=== PATIENT | male | born 1940 | race Caucasian/White ===

== ENCOUNTER → 2017-12-21 13:05 | Outpatient (CLI) | payer MEDICARE, SELFPAY ==
--- NOTE | 2017-12-21 13:10 | ECHOD_ITS ---
Reason For Study: CAD Procedure This was a 2D Doppler, Color Flow transthoracic echocardiogram. Exam performed in department. Left Ventricle Moderately dilated left ventricle. Calcified Thrombus in LV apex measuring 1.8 cm by 2.3cm. Severe segmental systolic dysfunction (see wall motion). The estimated ejection fraction is 20 %. Transmitral diastolic flow velocities suggest mild (stage 1) diastolic dysfunction (reversed pattern). Reading : Dyskinetic. Mid-Anterior : Akinetic. Mid-anteroseptal : Akinetic. Right Ventricle Normal RV size. Normal systolic function. Atria Normal left atrium. Normal right atrium. Mitral Valve Normal mitral valve. Mild (1+) eccentric mitral valve insufficiency. Tricuspid Valve Normal tricuspid valve. Mild tricuspid valve insufficiency. Aortic Valve Trisinus/trileaflet aortic valve. Mild focal aortic valve calcification. Pulmonic Valve Normal pulmonic valve. Great Vessels Normal aortic root. The pulmonary artery is normal size. Normal inferior vena cava. Pericardium/Pleural No pericardial effusion. Medication 22 gauge I.V. with prn adaptor inserted into right arm. Diluted definity 3ml given slow IV push to enhance endocardial definition. MMode/2D Measurements & Calculations LVIDd: 6.0 cm IVSd: 0.61 cm Ao root diam: 3.2 cm LVIDs: 4.9 cm LVPWd: 0.85 cm LA dimension: 4.1 cm RVDd: 2.8 cm FS: 19.2 % LAV(MOD-bp): 43.2 ml LA A4 area: 15.5 cm2 RA A4 area: 14.3 cm2 LAV(MOD-bp) Indexed: 24.8 ml/m2 LAV(MOD-sp2): 42.9 ml LAV(MOD-sp4): 42.5 ml Doppler Measurements & Calculations MV E max rj: 50.1 cm/sec Lat Peak E' Rj: 4.8 cm/sec Med Peak E' Rj: 3.5 cm/sec MV A max rj: 84.2 cm/sec E/E' lat: 10.5 E/E' med: 14.4 MV E/A: 0.60 Ao V2 max: 124.5 cm/sec LV V1 max: 99.1 cm/sec PA V2 max: 65.9 cm/sec Ao max P.2 mmHg LV V1 max P.9 mmHg Interpretation Summary Moderately dilated left ventricle. Severe segmental systolic dysfunction (see wall motion). The estimated ejection fraction is 20 %. Calcified Thrombus in LV apex measuring 1.8 cm by 2.3cm Transmitral diastolic flow velocities suggest mild (stage 1) diastolic dysfunction (reversed pattern). Ordering Physician: Royce Emerson Referring Physician: Rafiq Moreno Performed By: Rose Marie Ellison RDCS
== END ==
PROVIDERS: Family Provider Family Medicine; PCP Family Medicine; Visit Provider Internal Medicine Cardiovascular Disease
DX: I25.10 Atherosclerotic heart disease of native coronary artery without angina pectoris (principal); I21.29 ST elevation (STEMI) myocardial infarction involving other sites
CPT/HCPCS: 93306; Q9957; A4216

== ENCOUNTER → 2018-03-11 11:55 | Outpatient (CLI) | payer MEDICARE, SELFPAY ==
[2018-03-11 12:15] LABS: International Normalized Ratio 1.3; Prothrombin Time (Protime)PT. 16.1 SECONDS (11.7-14.9)
== END ==
PROVIDERS: Family Provider Family Medicine; PCP Family Medicine; Visit Provider Family Medicine
DX: Z79.01 Long term (current) use of anticoagulants (principal)
CPT/HCPCS: 85610

== ENCOUNTER 2019-07-29 16:41 | Inpatient (IN) | payer MEDICARE, SELFPAY ==
[2019-02-23 10:58] VITALS: BMI 20.5
[2019-07-29] VITALS (8 sets, daily range): BP systolic 84–101; BP diastolic 47–60; PULSE 75–101; RESP 16–24; TEMP 36.3–36.7; O2SAT 91–94; BMI 21.2
--- NOTE | 2019-07-29 17:10 | EKG12_ITS ---
Test Reason : Blood Pressure : / mmHG Vent. Rate : 104 BPM Atrial Rate : 104 BPM P-R Int : 166 ms QRS Dur : 098 ms QT Int : 338 ms P-R-T Axes : 069 089 242 degrees QTc Int : 444 ms Sinus tachycardia T wave abnormality, consider inferolateral ischemia Abnormal ECG Confirmed by MARY PARMAR, LILI ([id number]), editorial clerk WATSON URENA ([id number]) on 08/03/2019 11:25:22 AM Referred By: LESTER Confirmed By:LILI HERNANDEZ MD
--- NOTE | 2019-07-29 17:10 | RAD_ITS ---
STUDY: X-RAY CHEST REASON FOR EXAM: Male, 79 years old. Cough TECHNIQUE: Frontal view of the chest COMPARISON: 01/24/2015 FINDINGS: There is airspace opacity in the right upper lobe which is consistent with an infiltrate. The left lung is clear. There is a small right pleural effusion. There is no left-sided pleural effusion. There is no pneumothorax. The heart is normal in size. The patient is status post sternotomy. The visualized osseous structures are within normal limits. RAD/Chest 1 View (Portable) IMPRESSION: Right upper lobe infiltrate. Small right pleural effusion. Electronically Signed: Regulo Ramirez, at 17:36 EDT Tel , Service support ,
[2019-07-29 17:26] LABS: Absolute Lymphocyte Count 0.67 X10^3/uL (0.83-4.51); Absolute Neutrophil Count 9.7 X10^3/uL (2.0-7.7); Basophil# 0.02 X10^3/uL; Basophil% 0.2 % (0-1); Eosinophil# 0.01 X10^3/uL; Eosinophils% 0.1 % (0-5); Hematocrit 38.5 % (40-54); Hemoglobin 12.2 g/dL (13.0-16.5); Lymphocyte # 0.67 X10^3/ul (4.0); Lymphocyte % 5.6 % (19-41); Mean Corp Hgb Conc 31.7 g/dL (32-36); Mean Corpuscular Hgb 27.7 pg (27.0-32.0); Mean Corpuscular Volume 87.3 fL (80-94); Mean Platelet Vol. 9.2 fl (6.2-12.0); Monocyte# 1.55 X10^3/uL; Monocyte% 12.9 % (0-10); NRBC Flagged by Analyzer 0 % (0-5); Neutrophil # 9.66 X10^3/uL (2.7-7.7); Neutrophil % 80.7 % (47-70); POSITIVE DIFFERENTIAL YES; Platelet Count 303 K/mm3 (150-450); RBC Distribution Width CV 13.5 % (11.6-14.6); RBC Distribution Width SD 43.7 fl (35.1-43.9); Red Blood Count 4.41 M/mm3 (4.6-6.2)
[2019-07-29] MEDS: 0.9% Normal Saline 1,000 ML 999 ML IV ×2 (17:33)
[2019-07-29 17:37] LABS: Differential Indicated SCAN CRITERIA MET
[2019-07-29] MEDS: Ipratropium/Albuterol Sulfate 3 ML AMPUL.NEB INHALATION ×2 (18:08→20:08)
[2019-07-29 18:14] LABS: ALB/GLOB Ratio 0.6 RATIO (0.9-2.4); AST(SGOT) 54 U/L (15-37); Alanine Aminotransfer ALT/SGPT 53 U/L (16-61); Albumin, Serum 2.6 g/dL (3.2-5.0); Alkaline Phosphatase 160 U/L (45-117); Anion Gap 10 (5-15); BUN 29 mg/dL (7-18); BUN/Creat Ratio 22.5 RATIO (10-20); Calcium,Total 8.9 mg/dL (8.5-10.1); Chloride 101 mmol/L (98-107); Creatinine, Serum 1.29 mg/dL (0.70-1.30); EST Glomerular Filtration Rate 57 mL/min (>60); Est Glom Filt Rate - Afr Amer 69 mL/min (>60); Estimated Creatinine Clearance 41.71 ml/min; Globulin 4.6 g/dL (2.2-4.2); Glucose 112 mg/dL (74-106); Protein, Total 7.2 g/dL (6.4-8.2); Sodium Level 135 mmol/L (136-145)
[2019-07-29 18:17] LABS: Lactic Acid 1.8 mmol/L (0.4-2.0)
--- NOTE | 2019-07-29 18:50 | ED.VISSUMM ---
- ER Visit Summary Date of Service: 07/29/19 Chief Complaint: Shortness of breath History of Present Illness: The patient is a 79 M who presents with shortness of breath that has been getting worse over the past week. Patient states he is having a cough with some yellow sputum. Patient denies any fevers or chills. Patient denies any chest pain or palpitations. Patient denies any nausea or vomiting. Patient states nothing makes his breathing better or worse. Physical Examination: Vital signs showed a blood pressure of 84/56 with a heart rate of 101 and a respiratory rate of 24. Patient is afebrile. Patient is in no acute distress. Oral mucosa is pink and moist. Neck is supple. Trachea is midline. There is no JVD noted. Heart was regular rate and rhythm. Lungs showed rhonchi on the right. There is good respiratory effort noted. Abdomen is soft and nontender. Cranial nerves II through XII are intact. There are no focal motor or sensory deficits noted. Test Results: EKG showed sinus rhythm with a rate of 78. There are no acute ST or T wave changes noted. CBC shows a mild leukocytosis of 12.0. PA and lateral chest x-ray shows a right upper lobe infiltrate. Comprehensive metabolic profile is essentially within normal limits. PT, PTT, and INR were obtained and were all markedly elevated. Emergency Department Course and Treatment: Patient was given a DuoNeb aerosol here initially. Patient felt better after this however his wheezing is returned. Patient was given a repeat DuoNeb aerosol. Patient was given vitamin K. Patient was started on Unasyn. Case was discussed with the hospitalist. Patient will be admitted to the hospital. Disposition: Admit to hospital Impression: 1. Community-acquired pneumonia 2. Coagulopathy 3. Sepsis This note was generated with [employer] software. It may contain incorrect words, spelling, and punctuation that were not noted in review of the chart prior to signing ED Disposition - Plan for ED Patient: Disposition: Acute Care Hospital [facility] Diagnosis: Sepsis, Community acquired pneumonia, Warfarin-induced coagulopathy
[2019-07-29 19:28] LABS: Acanthocytes 1+; Platelet Estimate ADEQUATE (ADEQ); Red Cell Morphology N CHROM NORMAL (NORM C&C)
[2019-07-29 19:29] LABS: Burr Cells 2+
[2019-07-29 19:37] LABS: Bacteria 0 SEEN /hpf (None Seen)
[2019-07-29 19:43] LABS: Partial Thromboplast Time 153.9 Seconds (24.1-36.2)
[2019-07-29 19:45] LABS: Color, Urine Yellow (Yellow); Glucose, Dipstick Normal (Normal); Ketone-Dipstick 5 mg/dl (Negative); Leukocyte Esterase-Dipstick Negative /ul (Negative); Nitrite-Dipstick Negative (Negative); Occult Blood-Urine Negative /ul (Negative); Protein-Dipstick 30 mg/dl (Negative); Urine Clarity Sl. Cloudy (Clear); Urine Urobilinogen 8 mg/dl (Normal)
[2019-07-29 19:52] LABS: Urine Bilirubin Dipstick 1 mg/dL (Negative)
[2019-07-29 19:52] LABS: Prothrombin Time (Protime)PT. > 120.0 SECONDS (11.7-14.9)
--- NOTE | 2019-07-29 19:52 | ED.RN ---
notified MD of INR >17.5, PT >120, and ptt 153.9
[2019-07-29 19:53] LABS: Mucous, Urine 4+ /hpf (<or=2+)
[2019-07-29 19:54] LABS: Hyaline Cast 10-25 SEEN /lpf (0-5)
[2019-07-29 19:57] LABS: Red Blood Cells-Urine 0-5 SEEN /hpf (0-5); Squamous Epithelial Cells - UA 0-5 SEEN /hpf (0-5)
--- NOTE | 2019-07-29 20:00 | PCM.HP.STD ---
Problem List (1) Nicotine dependence Status: Chronic (2) Sepsis Status: Acute (3) Community acquired pneumonia Status: Acute (4) Chronic systolic (congestive) heart failure Status: Chronic (5) Old myocardial infarction Status: Chronic (6) LV (left ventricular) mural thrombus following CO Status: Chronic (7) Ischemic cardiomyopathy Status: Chronic (8) Atherosclerosis of coronary artery without angina pectoris Status: Chronic Comment: PCI-RYANNE-APPRENTICE CARPENTER Prox LCx w/ 2.5 x 12 mm Resolute Integrity Stent 01/25/2015; CABG x 5 GONCALVES-LAD, Sequential SVG-OM1, OM2,SVG-D1, SVG-RPDA 2007 (9) Essential (primary) hypertension Status: Chronic (10) Hyperlipidemia Status: Chronic History of Present Illness Date of Admission: 07/29/19 Chief Complaint: Chest congestion The patient is a 79 year old M with a significant history of tobacco abuse; CAD status post CABG and drug-eluting stents; COPD; hypertension; left ventricular mural thrombus following CO; and type 2 diabetes who presented to emergency department with chest congestion that has been going on for a week. Associated with his symptoms is productive cough of yellow sputum with an episode of a speck of blood, shortness of breath; chills; anorexia; headache; acute throbbing left-sided neck pain. Patient has been taking two different doses of Coumadin and thinks that they are different. Reportedly he checks his blood levels (?INR) outpatient. At the emergency department his INR was found to be more than 17.5 for which patient was given vitamin K. His chest x-ray was remarkable for right upper lobe infiltrate and small right pleural effusion. He denies any swallowing difficulty. At the emergency department patient was noted to have pink-tinged sputum. Although his blood pressure at the emergency department was low; his family reported that patient chronically has low blood pressure. Past Medical History Past Medical History (Chronic Problems): Chronic Problems (Last Reviewed 07/29/19 @ 22:55 by Viktor Engle MD) Nicotine dependence (Chronic) Chronic systolic (congestive) heart failure (Chronic) Old myocardial infarction (Chronic) LV (left ventricular) mural thrombus following CO (Chronic) Ischemic cardiomyopathy (Chronic) Atherosclerosis of coronary artery without angina pectoris (Chronic) PCI-RYANNE-APPRENTICE CARPENTER Prox LCx w/ 2.5 x 12 mm Resolute Integrity Stent 01/25/2015; CABG x 5 GONCALVES-LAD, Sequential SVG-OM1, OM2,SVG-D1, SVG-RPDA 2007 Essential (primary) hypertension (Chronic) Hyperlipidemia (Chronic) Medical History: Medical History (Last Reviewed 07/29/19 @ 23:21 by Viktor Engle MD) Nicotine dependence (Chronic) F17.200 Chronic systolic (congestive) heart failure (Chronic) I50.22 Old myocardial infarction (Chronic) I25.2 History of non-ST elevation myocardial infarction (NSTEMI) (Resolved) Onset Date: 2014 I25.2 LV (left ventricular) mural thrombus following CO (Chronic) I23.6 Ischemic cardiomyopathy (Chronic) I25.5 Atherosclerosis of coronary artery without angina pectoris (Chronic) I25.10 PCI-RYANNE-APPRENTICE CARPENTER Prox LCx w/ 2.5 x 12 mm Resolute Integrity Stent 01/25/2015; CABG x 5 GONCALVES-LAD, Sequential SVG-OM1, OM2,SVG-D1, SVG-RPDA 2007 Essential (primary) hypertension (Chronic) I10 Hyperlipidemia (Chronic) E78.5 COPD (chronic obstructive pulmonary disease) J44.9 Type 2 diabetes mellitus E11.9 Allergies No Known Allergies Allergy (Verified 07/29/19 16:44) Home Medications: Ambulatory Orders Medication Instructions Recorded Aspirin E.C. [Ecotrin] 81 mg PO DAILY@0800 01/24/15 Carvedilol [Coreg] 3.125 mg PO BID 01/24/15 metFORMIN HCl [Glucophage] 500 mg PO DAILY 01/24/15 atorvastatin 80 mg tablet 80 mg PO QHS 02/23/19 folic acid 400 mcg tablet 0.4 mg PO DAILY 30 Days #30 tab 02/23/19 lisinopril 2.5 mg tablet 2.5 mg PO DAILY 02/23/19 warfarin 3 mg tablet 3 mg PO DAILY 02/23/19 warfarin 4 mg tablet 4 mg PO DAILY 02/23/19 Albuterol Sulfate [Ventolin Hfa] 2 puff IH Q6H PRN PRN 07/29/19 Surgical History: Surgical History (Last Reviewed 07/29/19 @ 23:21 by Viktor Engle MD) History of coronary artery stent placement (Resolved) Onset Date: 01/25/15 Z95.5 PCI-RYANNE-APPRENTICE CARPENTER Prox LCx w/ 2.5 x 12 mm Integrity Stent 01/25/2015 H/O coronary artery bypass surgery (Resolved) Onset Date: 2007 Z95.1 CABG x 5 GONCALVES-LAD, Sequential SVG-OM1, OM2,SVG-D1, SVG-RPDA 2007 Psychiatric History: No pertinent psych hx Lives: Spouse/ Significant Other Smoking Status: Current every day smoker - *Family History Maternal History Items: Diabetes, Stroke Paternal History Items: - - His father young from shooting himself Review of Systems Constitutional: Reports: Anorexia, Chills. Denies: Fever, Weight Change HEENT: Reports: Head Aches. Denies: Sinus Congestion, Sinus Drainage Cardiovascular: Denies: Chest Pain, Palpitations Respiratory: Reports: Cough, Hemoptysis, Shortness of Breath, Sputum production Gastrointestinal: Denies: Abdominal Pain, Nausea, Vomiting Genitourinary: Denies: Dysuria Musculoskeletal: Reports: Neck Pain. Denies: Joint Pain, Joint Tenderness Skin: Denies: Rash, Wounds Neurological: Denies: Numbness, Tingling, Focal weakness Psychiatric: Denies: Anxiety, Depression, Homicidal Ideations, Suicidal Ideations Hematologic/ Lymphatic: Denies: Easy Bruising, Easy Bleeding VTE Information - Inpt Only VTE Present on Admission: No VTE Mechan Device Prophylaxis: None VTE Pharm Prophylaxis ordered?: No Reason prophylaxis not ordered:: Treatment Not Indicated - Patient has supratherapeutic INR. Patient Problems: Active and Suspected Problems (Last Reviewed 07/29/19 @ 22:55 by Viktor Engle MD) Sepsis (Acute) Community acquired pneumonia (Acute) - Physical Exam Vitals/I&O's: Vital Signs Temp Pulse Resp BP Pulse Ox 97.9 F 81 19 H 95/58 L 94 07/29/19 19:13 07/29/19 19:13 07/29/19 19:13 07/29/19 19:13 07/29/19 19:13 Oxygen Flow Rate (L/min) 2 Oxygen Delivery Method Nasal Cannula Weight: 63.503 kg Body Mass Index (BMI) 21.2 Intake and Output for Last 24 Hours 07/27/19 07/28/19 07/29/19 23:59 23:59 23:59 Intake Total 1000 / 1000 Balance 1000 / 1000 General: Alert, Oriented x3, Cooperative HEENT: Atraumatic, PERRLA, EOMI, Normocephalic Neck: Supple, No JVD, Negative Carotid Bruits Lungs: Clear to auscultation, Normal air movement Cardiovascular: Regular rate, No murmurs Abdomen: Bowel Sounds Present, Soft, Non Tender Extremities: No edema, Capillary Refill Less than 3 Seconds Skin: No rashes, No breakdown Musculoskeletal: No Tenderness to Palpation of Joints or Extremities Neurological: Cranial nerves II-XII grossly intact Psych/Mental Status: Normal Affect, Appropriate Laboratory Results 07/29/19 17:15: WBC 12.0 H, RBC 4.41 L, Hgb 12.2 L, Hct 38.5 L, MCV 87.3, MCH 27.7, MCHC 31.7 L, RDW Std Deviation 43.7, RDW Coeff of Herbert 13.5, Plt Count 303, MPV 9.2, Immature Gran % (Auto) 0.500, Neut % (Auto) 80.7 H, Lymph % (Auto) 5.6 L, [place] % (Auto) 12.9 H, Eos % (Auto) 0.1, Baso % (Auto) 0.2, Absolute Neuts (auto) 9.7 H, Absolute Lymphs (auto) 0.67 L, Nucleated RBC % 0, Differential Comment , Diff Path Review May , Platelet Estimate ADEQUATE, RBC Morphology N CHROM, Brimley Cells 2+, Acanthocytes (Spur) 1+ 07/29/19 17:15: PT Cancelled, INR Cancelled, APTT Cancelled 07/29/19 17:15: Sodium 135 L, Potassium 4.0, Chloride 101, Carbon Dioxide 24.0, Anion Gap 10, BUN 29 H, Creatinine 1.29, Estim Creat Clear Calc 41.71, Est GFR (MDRD) Af Amer 69, Est GFR (MDRD) Non-Af 57 L, BUN/Creatinine Ratio 22.5 H, Glucose 112 H, Calcium 8.9, Total Bilirubin 0.90, AST 54 H, ALT 53, Alkaline Phosphatase 160 H, Troponin I < 0.015, Total Protein 7.2, Albumin 2.6 L, Globulin 4.6 H, Albumin/Globulin Ratio 0.6 L 07/29/19 17:15: Lactic Acid Cancelled 07/29/19 17:45: Lactic Acid 1.8 07/29/19 18:41: PT > 120.0 H, INR > 17.5 H*, APTT 153.9 H* 07/29/19 19:24: Urine Color Yellow, Urine Clarity Sl. Cloudy, Urine pH 6.0, Ur Specific [place] 1.020, Urine Protein 30 H, Urine Glucose (UA) Normal, Urine Ketones 5 H, Urine Occult Blood Negative, Urine Nitrite Negative, Urine Bilirubin 1 H, Urine Urobilinogen 8 H, Ur Leukocyte Esterase Negative, Urine RBC Pending, Urine WBC Pending, Ur Squamous Epith Cells Pending, Urine Bacteria Pending, Urine Mucus Pending Current Medications Phytonadione 10 mg/ Sodium (Chloride) 51 mls @ 150 mls/hr IV X1 ONE Stop: 07/29/19 20:13 Assessment/Plan All Active Problems (Last Reviewed 07/29/19 @ 22:55 by Viktor Engle MD) Sepsis (Acute) Community acquired pneumonia (Acute) History of non-ST elevation myocardial infarction (NSTEMI) (Resolved 2014) History of coronary artery stent placement (Resolved 01/25/15) H/O coronary artery bypass surgery (Resolved 2007) History of tobacco use (Resolved) The patient is a 79 year old M with a significant history of tobacco abuse; CAD status post CABG and drug-eluting stents; COPD; hypertension; left ventricular mural thrombus following CO; and type 2 diabetes who presented to emergency department with chest congestion; productive cough with blood-tinged sputum was found to have tachycardia; tachypnea; elevated INR and radiographic evidence of probable pneumonia consistent with sepsis secondary to pneumonia. Sepsis secondary to community-acquired pneumonia SIRS criteria: Recorded one-time pulse rate 101; recorded one-time respiratory rate of 24. Although his blood pressure in the emergency department was low his family reported that his blood pressure is chronically low. Family is unsure about exact numbers of blood pressure. Leukocytosis with white count of 12 Chest x-ray showed right upper lobe infiltrate with small right pleural effusion. At the emergency department patient received Unasyn and Doxycycline. Multiple other antibiotics including Levaquin and azithromycin were considered but because of risk of further increasing INR these antibiotics will not ordered. Continue patient on Unasyn and Doxycycline. Blood cultures and urine cultures were obtained at the emergency department; follow Lactic acid was unremarkable. Home Coreg and Lisinopril was held Received IV fluid bolus in the emergency department. Maintenance infusion of IV fluids continued. Placed on [id number] DuoNeb PRN albuterol. Scheduled Mucinex and PRN Tessalon Perles ordered. Tylenol as needed ordered for pain and fever. Trend CBC and BMP. Elevated INR Presentation his INR was more than 17.5. Likely secondary to overdose of Coumadin since patient had 2 different Coumadin prescriptions on his home med list and reportedly was taking both prescriptions. Coumadin held at this time. Received vitamin K at the emergency department. We will repeat INR in a.m. Consider giving further dose of vitamin K if INR remains elevated. Would hold his aspirin for now to reduce his risk of bleeding. History of intramural thrombus Coumadin held for now secondary to elevated INR. Diabetes mellitus On presentation his blood glucose was stable. Hold home metformin since it is too early in his admission. Will put on Accu-Chek QA CHS with correction scale insulin. CAD status post CABG and drug-eluting stent/chronic systolic heart failure Aspirin held secondary to elevated INR. Coreg held secondary to low blood pressures. Coreg and lisinopril held secondary to hypotension. Tobacco abuse Consult Nicotine patch prescribed. DVT prophylaxis Not indicated since patient was supratherapeutic on INR with INR of more than 17.5. Code Visit Inpatient E&M: 88340 Init Hosp L3
[2019-07-29 20:01] LABS: Renal Epithelial Cells 0-5 SEEN /hpf (0-5)
[2019-07-29 20:02] LABS: White Blood Cells 0-5 SEEN /hpf (0-5)
--- NOTE | 2019-07-29 20:13 | ED.RN ---
called pharmacy to inquire about vitamin k and unasyn.
[2019-07-29 23:10] LABS: Bedside Glucose 92 mg/dL (70-110)
[2019-07-29] MEDS: guaiFENesin 1,200 MG Tablet 1200 MG PO (23:17)
[2019-07-29] MEDS: 0.9% Normal Saline 1,000 ML 100 ML IV (23:17)
[2019-07-29] MEDS: Atorvastatin Calcium 80 MG Tablet PO (23:17)
[2019-07-30] VITALS (37 sets, daily range): BP systolic 87–126; BP diastolic 51–96; PULSE 66–115; RESP 16–30; TEMP 36.4–37.2; O2SAT 86–98
[2019-07-30] MEDS: 0.9% Saline Lock 10 ML Syringe IV ×4 (06:15→17:49)
[2019-07-30] MEDS: Acetaminophen 325 MG Tablet 650 MG PO (06:16)
[2019-07-30 06:41] LABS: Bedside Glucose 95 mg/dL (70-110)
[2019-07-30] MEDS: Ipratropium/Albuterol Sulfate 3 ML AMPUL.NEB INHALATION ×5 (06:55→19:06)
[2019-07-30 07:19] LABS: Absolute Lymphocyte Count 0.58 X10^3/uL (0.83-4.51); Absolute Neutrophil Count 10.9 X10^3/uL (2.0-7.7); Basophil# 0.03 X10^3/uL; Basophil% 0.2 % (0-1); Eosinophil# 0.04 X10^3/uL; Eosinophils% 0.3 % (0-5); Hematocrit 35.3 % (40-54); Hemoglobin 11.1 g/dL (13.0-16.5); Lymphocyte # 0.58 X10^3/ul (4.0); Lymphocyte % 4.5 % (19-41); Mean Corp Hgb Conc 31.4 g/dL (32-36); Mean Corpuscular Hgb 27.8 pg (27.0-32.0); Mean Corpuscular Volume 88.3 fL (80-94); Mean Platelet Vol. 9.3 fl (6.2-12.0); Monocyte# 1.37 X10^3/uL; Monocyte% 10.5 % (0-10); NRBC Flagged by Analyzer 0 % (0-5); Neutrophil # 10.91 X10^3/uL (2.7-7.7); POSITIVE DIFFERENTIAL YES; Platelet Count 271 K/mm3 (150-450); RBC Distribution Width CV 13.5 % (11.6-14.6); RBC Distribution Width SD 44.2 fl (35.1-43.9)
[2019-07-30 07:20] LABS: Differential Indicated SCAN CRITERIA MET
[2019-07-30 07:39] LABS: Anion Gap 7 (5-15); BUN 19 mg/dL (7-18); BUN/Creat Ratio 26.7 RATIO (10-20); Calcium,Total 8.1 mg/dL (8.5-10.1); Chloride 108 mmol/L (98-107); Creatinine, Serum 0.71 mg/dL (0.70-1.30); EST Glomerular Filtration Rate 113 mL/min (>60); Est Glom Filt Rate - Afr Amer 137 mL/min (>60); Estimated Creatinine Clearance 50.49 ml/min; Glucose 89 mg/dL (74-106); Sodium Level 139 mmol/L (136-145)
[2019-07-30 07:41] LABS: International Normalized Ratio 1.8; Prothrombin Time (Protime)PT. 20.7 SECONDS (11.7-14.9)
--- NOTE | 2019-07-30 07:44 | ECHOCS_ITS ---
Reason For Study: DYSPNEA/SOB Procedure This was a 2D Doppler, Color Flow transthoracic echocardiogram. The study was technically difficult. Due to body habitus and respiratory interference. Contrast injection was performed. Exam performed portable in patient room. Left Ventricle Moderately dilated left ventricle. Severe segmental systolic dysfunction (see wall motion). The estimated ejection fraction is 25 %. Diastolic function is indeterminate. Basal inferoseptal: Hypokinetic. Mid-Anterior : Akinetic. Mid-Lateral : Hypokinetic. Mid-Inferior: Hypokinetic. Mid- inferoseptal : Akinetic. Mid-anteroseptal : Akinetic. [place] : Akinetic. Right Ventricle Normal RV size. Normal systolic function. Atria The left atrium is mildly enlarged. Normal right atrium. No doppler evidence for ASD. Mitral Valve There is no mitral annular calcification. Normal mitral valve. Mild (1+) mitral valve insufficiency. Tricuspid Valve Normal tricuspid valve. Trivial tricuspid valve insufficiency. Unable to estimate RV systolic pressure/pulmonary artery pressure due to technically difficult study. Aortic Valve Trisinus/trileaflet aortic valve. Mild focal aortic valve calcification. Pulmonic Valve The pulmonic valve is not well visualized. Great Vessels Normal sized aortic root. Pericardium/Pleural No pericardial effusion. Medication Diluted definity 4.0ml given slow IV push to enhance endocardial definition. MMode/2D Measurements & Calculations LVIDd: 6.1 cm IVSd: 1.1 cm Ao root diam: 3.7 cm LVIDs: 4.7 cm LVPWd: 1.1 cm LA dimension: 3.2 cm RVDd: 3.1 cm FS: 23.6 % LAV(MOD-bp): 52.5 ml LA A4 area: 19.1 cm2 RA A4 area: 16.3 cm2 LAV(MOD-bp) Indexed: 30.8 ml/m2 LAV(MOD-sp2): 40.9 ml LAV(MOD-sp4): 62.8 ml Time Measurements MV dec time: 0.16 sec Doppler Measurements & Calculations MV E max rj: 59.8 cm/sec Lat Peak E' Rj: 7.5 cm/sec Med Peak E' Rj: 6.3 cm/sec MV A max rj: 98.9 cm/sec E/E' lat: 8.0 E/E' med: 9.6 MV E/A: 0.61 Ao V2 max: 115.6 cm/sec LV V1 max: 89.0 cm/sec PA V2 max: 76.6 cm/sec Ao max P.3 mmHg LV V1 max P.2 mmHg Interpretation Summary The study was technically difficult. Contrast injection was performed. Moderately dilated left ventricle. Severe segmental systolic dysfunction (see wall motion). The estimated ejection fraction is 25 %. The left atrium is mildly enlarged. Mild (1+) mitral valve insufficiency. Trivial tricuspid valve insufficiency. Mild focal aortic valve calcification. Unable to estimate RV systolic pressure/pulmonary artery pressure due to technically difficult study. Diastolic function is indeterminate. Comment: Based upon the 2D echocardiographic and contrast enhanced images obtained a calcified left ventricular apical thrombus cannot necessarily be excluded. Ordering Physician: David Mejia Referring Physician: Melvin Bhakta Performed By: Gerri Santana RDCS, RVT
[2019-07-30 08:05] LABS: Differential Comment SCANNED
--- NOTE | 2019-07-30 08:36 | RAD_ITS ---
STUDY: X-RAY CHEST REASON FOR EXAM: Male, 79 years old. Shortness of breath TECHNIQUE: Frontal view of the chest COMPARISON: 07/29/2019 FINDINGS: There is stable airspace opacity throughout the right lung. The left lung is clear. There is a stable small right pleural effusion. There is no left-sided effusion. There is no pneumothorax. The heart is normal in size. Again noted are sternotomy wires. The visualized osseous structures are within normal limits. RAD/Chest 1 View (Portable) IMPRESSION: Stable exam. Electronically Signed: Regulo Ramirez, at 13:59 EDT Tel , Service support ,
[2019-07-30 09:21] LABS: BNP,B-Type NATRIURETIC PEPTIDE 250.2 pg/mL (0-100)
[2019-07-30] MEDS: guaiFENesin 1,200 MG Tablet 1200 MG PO ×2 (09:51→21:17)
[2019-07-30] MEDS: Folic Acid 1 MG Tablet 0.5 MG PO (09:51)
[2019-07-30 12:16] LABS: Bedside Glucose 130 mg/dL (70-110)
--- NOTE | 2019-07-30 12:30 | EKG12_ITS ---
Test Reason : Blood Pressure : / mmHG Vent. Rate : 078 BPM Atrial Rate : 078 BPM P-R Int : 176 ms QRS Dur : 092 ms QT Int : 386 ms P-R-T Axes : 058 086 126 degrees QTc Int : 440 ms Normal sinus rhythm Anterior infarct (cited on or before 24-JAN-2015), age undetermined T wave abnormality, consider lateral ischemia Abnormal ECG Confirmed by MARY PARMAR, LILI ([id number]), assignment editor WATSON URENA ([id number]) on 08/01/2019 10:05:59 AM Referred By: BERNICE Confirmed By:LILI HERNANDEZ MD
--- NOTE | 2019-07-30 12:31 | NURSING ---
Hope called with [facility]- notified of STAT EKG and duoneb x1 due to increased SOB, increase HR, frothy sputum and feeling symptomatic.
--- NOTE | 2019-07-30 13:04 | RAD_ITS ---
STUDY: X-RAY CHEST REASON FOR EXAM: Male, 79 years old. Shortness of breath TECHNIQUE: Frontal view of the chest COMPARISON: 07/30/2019 at 9:00 AM FINDINGS: There is stable airspace opacity throughout the right lung. The left lung is clear. There is a stable small right pleural effusion. There is no left-sided effusion. There is no pneumothorax. The heart is normal in size. Again noted are sternotomy wires. The visualized osseous structures are within normal limits. RAD/Chest 1 View (Portable) IMPRESSION: Stable exam. Electronically Signed: Regulo Ramirez, at 13:59 EDT Tel , Service support ,
--- NOTE | 2019-07-30 13:05 | NURSING ---
pt spo2 93% after duoneb and after oxygen increased to 4L- Sendy Jackson notified and new orders received. [facility] called and notified of stat ABG's.
--- NOTE | 2019-07-30 13:20 | NURSING ---
Daughter Kaia called at this time and notified of patient's decline in respiratory function over the past hour. Kaia thanked this nurse for the update and states she will notify her mom (his ). Despite oxygen being increased to 4L spo2 mid 80's- pt working hard to breathe. Kayla Jackson. on unit at this time- CXR taken and ABG's being drawn at this time.
[2019-07-30] MEDS: Furosemide 40 MG/4 ML Vial IV (13:29)
[2019-07-30 13:41] LABS: Base Excess -4 mmol/L (-2 to +2); Bicarbonate 22.1 mmol/L (22-26); Blood Gas Specimen Type ART; O2 Delivery Device Nasal Can; PO2 65 mmHG (75-100); SITE R Radial; SO2 91 % (95-99); Time Given 1332; Total Carbon Dioxide 23 mmol/L; pCO2 41.6 mmHg (35-45); pH 7.33 (7.35-7.45)
--- NOTE | 2019-07-30 14:33 | PN_ITS ---
Patient Problems: Active and Suspected Problems (Last Reviewed 07/29/19 @ 23:21 by Viktor Engle MD) Sepsis (Acute) Community acquired pneumonia (Acute) Warfarin-induced coagulopathy (Acute) Subjective: Initially this AM when seen the patient had improvement overnight in his dyspnea. He later became more dyspneic and required higher amounts of O2. He has never had CPAP/Bipap. He is an ongoing smoker since age 8 currently smoking 1/2 ppd. He has a cough productive of thick yellow mucus. He is wheezy. He has SOB at rest. He developed tacyhpnea and conversational dyspnea. He has no chest pain heaviness or tightness, no LE edema. No dizziness/LH. Some nausea no vomiting. - Physical Exam Vitals/I&O's: Vital Signs Temp Pulse Resp BP Pulse Ox 98.4 F 105 H 24 H 94/55 L 90 07/30/19 14:12 07/30/19 14:12 07/30/19 14:12 07/30/19 14:12 07/30/19 14:30 Oxygen Flow Rate (L/min) 5 Oxygen Delivery Method Nasal Cannula Weight: 131 lb 6.328 oz Body Mass Index (BMI) 20.0 Intake and Output for Last 24 Hours 07/28/19 07/29/19 07/30/19 23:59 23:59 23:59 Intake Total 1423 / 1523 1562.00 / 1562.00 Output Total 1175 / 1175 Balance 1423 / 1523 387.00 / 387.00 General: Alert, Oriented x3, Cooperative HEENT: Atraumatic, PERRLA, EOMI, Normocephalic Neck: Supple, No JVD, Negative Carotid Bruits Lungs: No rhonchi, No wheeze, Diminished, Rales Cardiovascular: Regular rate, No murmurs, Tachycardic Abdomen: Bowel Sounds Present, Soft, Non Tender Extremities: No edema, Capillary Refill Less than 3 Seconds Skin: No rashes, No breakdown Musculoskeletal: No Tenderness to Palpation of Joints or Extremities Neurological: Cranial nerves II-XII grossly intact Psych/Mental Status: Normal Affect, Appropriate, Alert and oriented to time, place, person, mood and affect Microbiology Past 72 Hours 07/29/19 19:24 Urine, Clean Catch Streptococcus pneumoniae Antigen (M - Final 07/29/19 19:24 Urine, Clean Catch Legionella Antigen - Final Laboratory Results 07/29/19 17:15: WBC 12.0 H, RBC 4.41 L, Hgb 12.2 L, Hct 38.5 L, MCV 87.3, MCH 27.7, MCHC 31.7 L, RDW Std Deviation 43.7, RDW Coeff of Herbert 13.5, Plt Count 303, MPV 9.2, Immature Gran % (Auto) 0.500, Neut % (Auto) 80.7 H, Lymph % (Auto) 5.6 L, Twiggs % (Auto) 12.9 H, Eos % (Auto) 0.1, Baso % (Auto) 0.2, Absolute Neuts (auto) 9.7 H, Absolute Lymphs (auto) 0.67 L, Nucleated RBC % 0, Differential Comment , Diff Path Review January, Platelet Estimate ADEQUATE, RBC Morphology N CHROM, Freedom Cells 2+, Acanthocytes (Spur) 1+ 07/29/19 17:15: PT Cancelled, INR Cancelled, APTT Cancelled 07/29/19 17:15: Sodium 135 L, Potassium 4.0, Chloride 101, Carbon Dioxide 24.0, Anion Gap 10, BUN 29 H, Creatinine 1.29, Estim Creat Clear Calc 41.71, Est GFR (MDRD) Af Amer 69, Est GFR (MDRD) Non-Af 57 L, BUN/Creatinine Ratio 22.5 H, Glucose 112 H, Calcium 8.9, Total Bilirubin 0.90, AST 54 H, ALT 53, Alkaline Phosphatase 160 H, Troponin I < 0.015, Total Protein 7.2, Albumin 2.6 L, Globulin 4.6 H, Albumin/Globulin Ratio 0.6 L 07/29/19 17:15: Lactic Acid Cancelled 07/29/19 17:45: Lactic Acid 1.8 07/29/19 18:41: PT > 120.0 H, INR > 17.5 H*, APTT 153.9 H* 07/29/19 19:24: Urine Color Yellow, Urine Clarity Sl. Cloudy, Urine pH 6.0, Ur Specific [place] 1.020, Urine Protein 30 H, Urine Glucose (UA) Normal, Urine Ketones 5 H, Urine Occult Blood Negative, Urine Nitrite Negative, Urine Bilirubin 1 H, Urine Urobilinogen 8 H, Ur Leukocyte Esterase Negative, Urine RBC 0-5 SEEN, Urine WBC 0-5 SEEN, Ur Squamous Epith Cells 0-5 SEEN, Ur Renal Epithelial Cell 0-5 SEEN, Urine Bacteria 0 SEEN, Hyaline Casts 10-25 SEEN, Urine Mucus 4+ 07/29/19 22:15: POC Glucose 92 07/30/19 06:26: POC Glucose 95 07/30/19 06:30: WBC 13.0 H, RBC 4.00 L, Hgb 11.1 L, Hct 35.3 L, MCV 88.3, MCH 27.8, MCHC 31.4 L, RDW Std Deviation 44.2 H, RDW Coeff of Herbert 13.5, Plt Count 271, MPV 9.3, Immature Gran % (Auto) 0.500, Neut % (Auto) 84.0 H, Lymph % (Auto) 4.5 L, Twiggs % (Auto) 10.5 H, Eos % (Auto) 0.3, Baso % (Auto) 0.2, Absolute Neuts (auto) 10.9 H, Absolute Lymphs (auto) 0.58 L, Nucleated RBC % 0, Differential Comment SCANNED 07/30/19 06:30: PT 20.7 H, INR 1.8 07/30/19 06:30: Sodium 139, Potassium 4.0, Chloride 108 H, Carbon Dioxide 24.0, Anion Gap 7, BUN 19 H, Creatinine 0.71, Estim Creat Clear Calc 50.49, Est GFR (MDRD) Af Amer 137, Est GFR (MDRD) Non-Af 113, BUN/Creatinine Ratio 26.7 H, Glucose 89, Calcium 8.1 L 07/30/19 06:30: B-Natriuretic Peptide 250.2 H 07/30/19 11:43: POC Glucose 130 H 07/30/19 13:33: Specimen Type ART, Sample Site R Radial, pH 7.33 L, Bicarbonate Actual 22.1, POC Total CO2 23, Base Excess -4 L, O2 Saturation 91 L, ABG pCO2 41.6, ABG pO2 65 L, Tan Test NA, O2 Delivery Device Nasal Can, Liter Flow 5.0, Blood Gas Notified Whom SHANNA PARMAR, Blood Gas Notified Time 1332 Current Medications Acetaminophen (Tylenol) 650 mg PO Q6H PRN PRN PRN Reason: Pain Score 1-3/Temp > 100.7 F Last Admin: 07/30/19 06:16 Dose: 650 mg Documented by: Albuterol Sulfate (Ventolin Aerosols) 2.5 mg INHALATION Q2H PRN PRN PRN Reason: Shortness of Breath/Wheezing Albuterol/Ipratropium (Duoneb) 3 ml INHALATION Q4HWA.RT [facility] Last Admin: 07/30/19 11:15 Dose: 3 ml Documented by: Albuterol/Ipratropium (Duoneb) 3 ml INHALATION X1 [facility] Last Admin: 07/30/19 12:46 Dose: 3 ml Documented by: Atorvastatin Calcium (Lipitor) 80 mg PO QHS [facility] Last Admin: 07/29/19 23:17 Dose: 80 mg Documented by: Benzonatate (Tessalon Perle) 100 mg PO 4X/DAY PRN PRN PRN Reason: COUGH Bisacodyl (Dulcolax) 5 mg PO DAILY PRN PRN PRN Reason: Constipation Dextrose (D50w Syringe) 0 gm IV X1 PRN; Protocol PRN Reason: Hypoglycemia Folic Acid (Folic Acid) 0.5 mg PO DAILYCM [facility] Last Admin: 07/30/19 09:51 Dose: 0.5 mg Documented by: Glucagon () 1 mg IM .X1 PRN PRN Reason: Hypoglycemia Guaifenesin (Mucinex) 1,200 mg PO BID [facility] Last Admin: 07/30/19 09:51 Dose: 1,200 mg Documented by: Sodium Chloride () 250 mls @ 15 mls/hr IV .[id number] PRN PRN Reason: Saline Flush Last Infusion: 07/30/19 13:24 Dose: 0 mls/hr Documented by: Ampicillin Sodium/Sulbactam (Sodium 3 gm/ Sodium Chloride) 112 mls @ 150 mls/hr IV Q6 [facility] Last Infusion: 07/30/19 13:24 Dose: Infused Documented by: Doxycycline Hyclate 100 mg/ (Dextrose) 260 mls @ 250 mls/hr IV Q12 [facility] Last Infusion: 07/30/19 12:27 Dose: Infused Documented by: Insulin Human Lispro (Humalog Kwikpen (Bkc)) 0 unit SC ACHS [facility]; Protocol Last Admin: 07/30/19 11:55 Dose: Not Given Documented by: Nicotine (Nicoderm Cq (Pbkc)) 14 mg TRANSDERM. DAILY [facility] Last Admin: 07/30/19 09:51 Dose: 14 mg Documented by: Nutritional Formula (Lactose Free) (Glucerna Shake) 120 ml PO 4X/DAY [facility] Last Admin: 07/30/19 12:58 Dose: Not Given Documented by: Ondansetron HCl (Zofran) 4 mg IV Q8H PRN PRN PRN Reason: NAUSEA/VOMITING Prednisone () 40 mg PO DAILY@0800 [facility] Sodium Chloride () 10 - 40 ml IV UD PRN PRN Reason: SALINE FLUSH Last Admin: 07/30/19 13:29 Dose: 20 ml Documented by: Warfarin Sodium (Coumadin ([facility])) 3 mg PO DAILY@1700 [facility] Medical Necessity - Tobacco Use Smoking Status: Current every day smoker Tobacco Use: Cigarettes Assessment/Plan All Active Problems (Last Reviewed 07/29/19 @ 23:21 by Viktor Engle MD) Sepsis (Acute) Community acquired pneumonia (Acute) Warfarin-induced coagulopathy (Acute) History of non-ST elevation myocardial infarction (NSTEMI) (Resolved 2014) History of coronary artery stent placement (Resolved 01/25/15) H/O coronary artery bypass surgery (Resolved 2007) History of tobacco use (Resolved) 1. Acute hypoxic respiratory failure 2/2 acute CAP - continue doxy/unasyn. Now on venti/high flow O2. PEP/IS therapy. Aerosols. ABG with hypoxia and mild acidosis no CO2 retention at this time. WBC increased. No fever. Repeat CXR with inverval worsening of right infiltrate. BNP is mildly elevated. One dose lasix given - he does have EF 25% and ischemic CM. EKG and tele with sinus tachy. - No further hemoptysis - resume wafarin/aspirin - I discussed his code status with him: confirmed no CPR, no intubation, desires DNRCCA. -check rapid influenza 2. 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 Smoked since age 8. Needs pulm referral. did receive 3L fluid. CXR does not show new pulmonary edema. Continue Coreg and lisinopril. 3. Chronic systolic CHF and ischemic CM - echo unchanged from prior. 1x lasix IV. No acute exacerbation. 4. Ventricular mural thrombus - known hx. INR now below 1.8. Restart coumadin lower dose 5. DMt2 - metformin held, SSI. 6. CAD - continue statin, coreg, rafael, restart aspirin (was held for hemoptysis) DVT ppx: stew MERCEDES planning: PTOT. No prior home o2. This patient was seen by Kendall Bowling PA-C under the supervision of Doctor Belinda sawyer.
[2019-07-30 16:26] LABS: Bedside Glucose 146 mg/dL (70-110)
[2019-07-30] MEDS: Glucerna Shake 120 ML LIQUID PO ×2 (18:05→21:16)
[2019-07-30] MEDS: Insulin Lispro 100 UNIT/ML INSULN.PEN SC (21:16)
[2019-07-30] MEDS: Atorvastatin Calcium 80 MG Tablet PO (21:17)
[2019-07-30 21:31] LABS: Bedside Glucose 167 mg/dL (70-110)
[2019-07-31] VITALS (20 sets, daily range): BP systolic 109–131; BP diastolic 66–73; PULSE 83–114; RESP 16–24; TEMP 36.5–36.9; O2SAT 89–97
[2019-07-31 05:16] LABS: Absolute Lymphocyte Count 0.46 X10^3/uL (0.83-4.51); Basophil# 0.02 X10^3/uL; Basophil% 0.2 % (0-1); Hematocrit 36.5 % (40-54); Hemoglobin 11.7 g/dL (13.0-16.5); Lymphocyte # 0.46 X10^3/ul (4.0); Lymphocyte % 3.5 % (19-41); Mean Corp Hgb Conc 32.1 g/dL (32-36); Mean Corpuscular Volume 87.3 fL (80-94); Mean Platelet Vol. 9.2 fl (6.2-12.0); Monocyte% 3.8 % (0-10); NRBC Flagged by Analyzer 0 % (0-5); Neutrophil # 11.95 X10^3/uL (2.7-7.7); POSITIVE DIFFERENTIAL YES; Platelet Count 334 K/mm3 (150-450); RBC Distribution Width CV 13.6 % (11.6-14.6); RBC Distribution Width SD 43.5 fl (35.1-43.9); Red Blood Count 4.18 M/mm3 (4.6-6.2)
[2019-07-31 05:42] LABS: ALB/GLOB Ratio 0.5 RATIO (0.9-2.4); AST(SGOT) 57 U/L (15-37); Alanine Aminotransfer ALT/SGPT 50 U/L (16-61); Albumin, Serum 2.1 g/dL (3.2-5.0); Alkaline Phosphatase 167 U/L (45-117); Anion Gap 8 (5-15); BUN 18 mg/dL (7-18); BUN/Creat Ratio 24.8 RATIO (10-20); Calcium,Total 8.5 mg/dL (8.5-10.1); Chloride 104 mmol/L (98-107); Creatinine, Serum 0.73 mg/dL (0.70-1.30); EST Glomerular Filtration Rate 111 mL/min (>60); Est Glom Filt Rate - Afr Amer 134 mL/min (>60); Estimated Creatinine Clearance 50.49 ml/min; Globulin 4.4 g/dL (2.2-4.2); Glucose 147 mg/dL (74-106); Potassium 3.7 mmol/L (3.5-5.1); Protein, Total 6.5 g/dL (6.4-8.2); Sodium Level 138 mmol/L (136-145)
[2019-07-31 05:55] LABS: Differential Indicated SCAN CRITERIA MET
[2019-07-31 06:55] LABS: Bedside Glucose 134 mg/dL (70-110)
[2019-07-31] MEDS: Ipratropium/Albuterol Sulfate 3 ML AMPUL.NEB INHALATION ×4 (07:18→20:40)
--- NOTE | 2019-07-31 07:35 | RAD_ITS ---
STUDY: X-RAY CHEST REASON FOR EXAM: Male, 79 years old. Shortness of breath TECHNIQUE: Single AP portable view of the chest. COMPARISON: 07/30/2019 FINDINGS: Persistent masslike consolidation involving the right upper lobe/perihilar region. Elevation of the right hemidiaphragm continues a diminished amount of reticular and groundglass opacities in the right lower lobe. Nodular density of the left mid lung is redemonstrated. Small right pleural effusion is suspected. There is a granuloma left lung base. Normal size heart. Sternal wires and mediastinal surgical clips compatible with prior CABG. Surgical clips overlie the right hilum. Normal visualized pulmonary arteries. There is atherosclerotic calcification of the aortic arch with tortuosity. No acute bony process. There is no demonstrated abnormality of the visualized soft tissue structures of the upper abdomen. RAD/Chest 1 View (Portable) IMPRESSION: 1. Mild stable change since 07/30/2019. Decreased infiltrates of the right lower lobe. 2. Persistent right perihilar masslike consolidation and nodule in the left midlung. Neoplasm should be considered. 3. Small right pleural effusion. Electronically Signed: Arnold Gould MD ([place]) at 12:29 EST , Service support ,
[2019-07-31] MEDS: Glucerna Shake 120 ML LIQUID PO ×4 (08:25→21:45)
[2019-07-31] MEDS: Folic Acid 1 MG Tablet 0.5 MG PO (08:25)
[2019-07-31] MEDS: guaiFENesin 1,200 MG Tablet 1200 MG PO ×2 (08:27→21:46)
--- NOTE | 2019-07-31 08:56 | CT_ITS ---
STUDY: CT CHEST WITHOUT CONTRAST REASON FOR EXAM: Male, 79 years old. Respiratory failure, community-acquired pneumonia. RADIATION DOSAGE (If Supplied By Facility): CTDIvol = ( 10.65 ) mGy, DLP = ( 401.88 ) mGycm TECHNIQUE: Transaxial imaging was performed without the administration of intravenous contrast material. Individualized dose optimization techniques were used for this CT. COMPARISON: None. FINDINGS: There is demonstrated predominantly upper lung centrilobular emphysematous changes. Within the right upper lobe are diffuse areas of interstitial thickening and areas of consolidation centrally consistent with acute infiltrate/pneumonia in the appropriate clinical setting. Right lower lobe peribronchial thickening and right lower lobe consolidation with small layering effusion is present also consistent with acute infiltrate with aspiration not excluded. There is a demonstrated mildly spiculated nodule overlying the right lower lobe as seen on series 4 image 75 measuring 9 mm. Additional spot spiculated parenchymal lesion is also noted within the left upper lobe is seen on series 4 image 70 measuring 1.3 cm. Granulomatous calcification overlies the left lower lobe. There is no demonstrated pleural abnormality. There are calcifications of the coronary arteries. Normal mediastinum. Right hilar fullness with infectious infiltrate versus lymphadenopathy resulting in a right mainstem bronchi narrowing is present. Normal unenhanced pulmonary arteries. There is atherosclerotic tortuosity of the aortic arch and descending thoracic aorta. There is demineralization of the thoracic spine. There is no demonstrated abnormality of the visualized upper abdomen. CT/Chest without Contrast IMPRESSION: 1. Right hilar lymphadenopathy versus soft tissue lesion/mass causing right main bronchi narrowing with consolidation and interstitial prominence throughout the right upper lobe most concerning for acute infiltrate with cellular infiltrating neoplasm also not excluded in the appropriate clinical setting. In addition there is right lower lobe small nodule with spiculation (series 4 image 75) with left upper lobe spiculated lesion measuring 1.3 cm (series 4 image 70) concerning for neoplastic process versus secondary infectious process. 1. Right lower lobe peribronchial thickening and basilar consolidation with small effusion also concerning for acute infiltrate. Recommend follow-up imaging to assess for treatment improvement as underlying neoplastic process is not excluded. Electronically Signed: Chao Denny DO at 11:05 EST , Service support ,
--- NOTE | 2019-07-31 09:11 | CON.PCM_ITS ---
Problem List (1) Sepsis Status: Acute (2) Community acquired pneumonia Status: Acute Qualifiers: Laterality: right Lung location: upper lobe of lung Qualified Code(s): J18.1 - Lobar pneumonia, unspecified organism (3) Warfarin-induced coagulopathy Status: Acute (4) Nicotine dependence Status: Chronic Qualifiers: Nicotine product type: cigarettes Substance use status: uncomplicated Qualified Code(s): F17.210 - Nicotine dependence, cigarettes, uncomplicated (5) Chronic systolic (congestive) heart failure Status: Chronic (6) History of non-ST elevation myocardial infarction (NSTEMI) Status: Resolved (7) History of coronary artery stent placement Status: Resolved Comment: PCI-RYANNE-COMMUN[employer] RELATIONS ADVISOR Prox LCx w/ 2.5 x 12 mm Integrity Stent 01/25/2015 (8) LV (left ventricular) mural thrombus following [place] Status: Chronic (9) H/O coronary artery bypass surgery Status: Resolved Comment: CABG x 5 GONCALVES-LAD, Sequential SVG-OM1, OM2,SVG-D1, SVG-RPDA 2007 (10) Essential (primary) hypertension Status: Chronic (11) Hyperlipidemia Status: Chronic Reason for Consult Date of Consultation: 07/31/19 Reason for Consultation: Hypoxic respiratory failure History of Present Illness: The patient is a 79 year old M, with past medical history listed below, who presented with [facility] on 07/29/2019 secondary to progressive shortness of breath over the last week. Patient had reported a cough productive of yellow sputum, but no fevers or chills of been reported. Patient did not have any chest pain or palpitations. Patient is unable to find anything to make him feel better. Patient did report worsening with exertion. Patient is on Coumadin therapy secondary to a history of a left ventricular mural thrombus. On presentation to the ER, patient was hypotensive at 84/56 and slightly tachyc ardic at 101 bpm. Patient had significant rhonchi on the right. Laboratory work-up showed a leukocytosis of 12 and PA lateral chest x-ray showed a right upper lobe infiltrate. Patient did have a coagulopathy. In the ER, patient was placed on Unasyn, vitamin K, duo nebs and admitted to the floor for further evaluation. Throughout hospitalization, patient has become progressively hypoxic. Patient did receive Lasix yesterday with some improvement in overall condition, but is now currently on high flow nasal cannula oxygen to maintain saturations. This led to the pulmonary consult. Patient reports a significant smoking history of 40+ pack years. Patient is never seen a homogenizer operator or had pulmonary function test previously. Patient does report a cough productive of clear to white sputum at baseline, but states it turned to yellow approximately 1 week ago. Patient does not use any inhalers at home. Patient has not had any significant hemoptysis noted. Patient does have an extensive cardiac history and follows with Dr. Peraza. Patient reportedly is not on Lasix at baseline despite reduced ejection fraction. Patient denies any alcohol or drug use. Patient is not been exposed to asbestos to his knowledge. Patient denies any history of tuberculosis. 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 Patient denies any recent travel. Review of systems otherwise negative from a constitutional, HEENT, respiratory, cardiovascular, GI, genitourinary, musculoskeletal, skin, neurologic, psychiatric and hematologic system unless stated above. Past Medical History Past Medical History (Chronic Problems): Chronic Problems (Last Reviewed 07/29/19 @ 23:21 by Viktor Engle MD) Nicotine dependence (Chronic) Chronic systolic (congestive) heart failure (Chronic) Old myocardial infarction (Chronic) LV (left ventricular) mural thrombus following IN (Chronic) Ischemic cardiomyopathy (Chronic) Atherosclerosis of coronary artery without angina pectoris (Chronic) PCI-RY[employer]NE[employer]ATIONS ADVISOR Prox LCx w/ 2.5 x 12 mm Resolute Integrity Stent 01/25/2015; CABG x 5 GONCALVES-LAD, Sequential SVG-OM1, OM2,SVG-D1, SVG-RPDA 2007 Essential (primary) hypertension (Chronic) Hyperlipidemia (Chronic) Medical History: Medical History (Last Reviewed 07/29/19 @ 23:21 by Viktor Engle MD) Nicotine dependence (Chronic) F17.200 Chronic systolic (congestive) heart failure (Chronic) I50.22 Old myocardial infarction (Chronic) I25.2 History of non-ST elevation myocardial infarction (NSTEMI) (Resolved) Onset Date: 2014 I25.2 LV (left ventricular) mural thrombus following IN (Chronic) I23.6 Ischemic cardiomyopathy (Chronic) I25.5 Atherosclerosis of coronary artery without angina pectoris (Chronic) I25.10 PCI-[employer]NE[employer] ADVISOR Prox LCx w/ 2.5 x 12 mm Resolute Integrity Stent 01/25/2015; CABG x 5 GONCALVES-LAD, Sequential SVG-OM1, OM2,SVG-D1, SVG-RPDA 2007 Essential (primary) hypertension (Chronic) I10 Hyperlipidemia (Chronic) E78.5 COPD (chronic obstructive pulmonary disease) J44.9 Type 2 diabetes mellitus E11.9 Allergies No Known Allergies Allergy (Verified 07/29/19 16:44) Home Medications: Ambulatory Orders Medication Instructions Recorded Aspirin E.C. [Ecotrin] 81 mg PO DAILY@0800 01/24/15 Carvedilol [Coreg] 3.125 mg PO BID 01/24/15 metFORMIN HCl [Glucophage] 500 mg PO DAILY 01/24/15 atorvastatin 80 mg tablet 80 mg PO QHS 02/23/19 folic acid 400 mcg tablet 0.4 mg PO DAILY 30 Days #30 tab 02/23/19 lisinopril 2.5 mg tablet 2.5 mg PO DAILY 02/23/19 warfarin 3 mg tablet 3 mg PO DAILY 02/23/19 warfarin 4 mg tablet 4 mg PO DAILY 02/23/19 Albuterol Sulfate [Ventolin Hfa] 2 puff IH Q6H PRN PRN 07/29/19 Surgical History: Surgical History (Last Reviewed 07/29/19 @ 23:21 by iVktor Engle MD) History of coronary artery stent placement (Resolved) Onset Date: 01/25/15 Z95.5 PCI-RYANNE[employer] RELATIONS ADVISOR Prox LCx w/ 2.5 x 12 mm Integrity Stent 01/25/2015 H/O coronary artery bypass surgery (Resolved) Onset Date: 2007 Z95.1 CABG x 5 GONCALVES-LAD, Sequential SVG-OM1, OM2,SVG-D1, SVG-RPDA 2007 Psychiatric History: No pertinent psych hx Lives: Spouse/ Significant Other Smoking Status: Current every day smoker Tobacco Use: Cigarettes - *Family History Maternal History Items: Diabetes, Stroke Paternal History Items: - - His father young from shooting himself Review of Systems Comment: See HPI Patient Problems: Active and Suspected Problems (Last Reviewed 07/29/19 @ 23:21 by Viktor Engle MD) Sepsis (Acute) Community acquired pneumonia (Acute) Warfarin-induced coagulopathy (Acute) Objective: All imaging was personally reviewed. Chest x-ray on presentation did show an infiltrate of the right upper lobe. Patient has progressed in infiltrates and now appears to have a right-sided pleural effusion. Echocardiogram (07/30/2019): EF 25% with mildly enlarged left atrium and normal right atrium. Unable to quantify right ventricular systolic pressure. Noted to have akinetic apex. - Physical Exam Vitals/I&O's: Vital Signs Temp Pulse Resp BP Pulse Ox 36.8 C 97 24 H 131/73 H 94 07/31/19 08:33 07/31/19 08:33 07/31/19 08:33 07/31/19 08:33 07/31/19 08:33 Oxygen Flow Rate (L/min) 40 Oxygen Delivery Method Nasal Cannula Weight: 59.6 kg Body Mass Index (BMI) 20.0 Intake and Output for Last 24 Hours 07/29/19 07/30/19 07/31/19 23:59 23:59 22:59 Intake Total 1423 / 1523 2298.00 / 2410.00 464 / 464 Output Total 2425 / 2425 450 / 450 Balance 1423 / 1523 -127.00 / -15.00 General: Alert, Oriented x3, Cooperative, No apparent distress - On high flow nasal cannula, - - Thin build. Appears older than stated age. HEENT: Atraumatic, PERRLA, EOMI, Normocephalic, - - No scleral icterus or injection noted Oral: Moist Mucosa, No Gingival or Mucosal Lesions/ Ulcerations Neck: Supple, No JVD, No Nodes, Trachea Midline Lungs: Diminished, Rales, Rhonchi, - - No accessory muscle use Cardiovascular: Regular rate, Regular Rhythm, Normal S1, Normal S2, No murmurs, No rub noted, No Gallop Abdomen: Bowel Sounds Present, Soft, Non Tender, Non-Distended Extremities: No cyanosis, No edema, Capillary Refill Less than 3 Seconds, Clubbing Skin: No rashes, No breakdown Musculoskeletal: No Tenderness to Palpation of Joints or Extremities Lymphatic: No Cervical, Supraclavicular, or Inguinal Adenopathy Neurological: Cranial nerves II-XII grossly intact, Neuro grossly intact, Motor Exam 5/5 strength throughout Psych/Mental Status: Alert and oriented to time, place, person, mood and affect Microbiology Past 72 Hours 07/30/19 15:32 Interface Orders Influenza Types A,B Direct FA (JUAN MIGUEL) - Final 07/29/19 19:24 Urine, Clean Catch Streptococcus pneumoniae Antigen (M - Final 07/29/19 19:24 Urine, Clean Catch Legionella Antigen - Final Laboratory Results 07/30/19 11:43: POC Glucose 130 H 07/30/19 13:33: Specimen Type ART, Sample Site R Radial, pH 7.33 L, Bicarbonate Actual 22.1, POC Total CO2 23, Base Excess -4 L, O2 Saturation 91 L, ABG pCO2 41.6, ABG pO2 65 L, Tan Test NA, O2 Delivery Device Nasal Can, Liter Flow 5.0, Blood Gas Notified Whom SHANNA PARMAR, Blood Gas Notified Time 1332 07/30/19 16:15: POC Glucose 146 H 07/30/19 21:10: POC Glucose 167 H 07/31/19 04:20: WBC 13.0 H, RBC 4.18 L, Hgb 11.7 L, Hct 36.5 L, MCV 87.3, MCH 28.0, MCHC 32.1, RDW Std Deviation 43.5, RDW Coeff of Herbert 13.6, Plt Count 334, MPV 9.2, Immature Gran % (Auto) 0.500, Neut % (Auto) 92.0 H, Lymph % (Auto) 3.5 L, [place] % (Auto) 3.8, Eos % (Auto) 0.0, Baso % (Auto) 0.2, Absolute Neuts (auto) 12.0 H, Absolute Lymphs (auto) 0.46 L, Nucleated RBC % 0, Differential Comment 07/31/19 04:20: Sodium 138, Potassium 3.7, Chloride 104, Carbon Dioxide 26.0, Anion Gap 8, BUN 18, Creatinine 0.73, Estim Creat Clear Calc 50.49, Est GFR (MDRD) Af Amer 134, Est GFR (MDRD) Non-Af 111, BUN/Creatinine Ratio 24.8 H, Glucose 147 H, Calcium 8.5, Total Bilirubin 0.90, AST 57 H, ALT 50, Alkaline Phosphatase 167 H, Total Protein 6.5, Albumin 2.1 L, Globulin 4.4 H, Albumin/Globulin Ratio 0.5 L 07/31/19 06:48: POC Glucose 134 H Clinical Impression(s) from Imaging Studies Chest X-Ray 07/29/19 17:10 IMPRESSION: Right upper lobe infiltrate. Small right pleural effusion. Electronically Signed: Regulo Ramirez, at 17:36 EDT Tel , Service support , Chest X-Ray 07/30/19 08:36 IMPRESSION: Stable exam. Electronically Signed: Regulo Machelsea, at 13:59 EDT Tel , Service support , Chest X-Ray 07/30/19 13:04 IMPRESSION: Stable exam. Electronically Signed: Regulo Mazohrehnorma, at 13:59 EDT Tel , Service support , Current Medications Acetaminophen (Tylenol) 650 mg PO Q6H PRN PRN PRN Reason: Pain Score 1-3/Temp > 100.7 F Last Admin: 07/30/19 06:16 Dose: 650 mg Documented by: Albuterol Sulfate (Ventolin Aerosols) 2.5 mg INHALATION Q2H PRN PRN PRN Reason: Shortness of Breath/Wheezing Albuterol/Ipratropium (Duoneb) 3 ml INHALATION Q4HWA.RT COUNTS INCLUDE 234 BEDS AT THE [facility] Last Admin: 07/30/19 19:06 Dose: 3 ml Documented by: Atorvastatin Calcium (Lipitor) 80 mg PO QHS COUNTS INCLUDE 234 BEDS AT THE [facility] Last Admin: 07/30/19 21:17 Dose: 80 mg Documented by: Benzonatate (Tessalon Perle) 100 mg PO 4X/DAY PRN PRN PRN Reason: COUGH Bisacodyl (Dulcolax) 5 mg PO DAILY PRN PRN PRN Reason: Constipation Dextrose (D50w Syringe) 0 gm IV X1 PRN; Protocol PRN Reason: Hypoglycemia Folic Acid (Folic Acid) 0.5 mg PO DAILYCM COUNTS INCLUDE 234 BEDS AT THE [facility] Last Admin: 07/31/19 08:25 Dose: 0.5 mg Documented by: Furosemide (Lasix) 40 mg IV BID@1000,1800 COUNTS INCLUDE 234 BEDS AT THE [facility] Glucagon () 1 mg IM .X1 PRN PRN Reason: Hypoglycemia Guaifenesin (Mucinex) 1,200 mg PO BID COUNTS INCLUDE 234 BEDS AT THE [facility] Last Admin: 07/31/19 08:27 Dose: 1,200 mg Documented by: Sodium Chloride () 250 mls @ 15 mls/hr IV .[id number] PRN PRN Reason: Saline Flush Last Infusion: 07/30/19 19:01 Dose: 0 mls/hr Documented by: Ampicillin Sodium/Sulbactam (Sodium 3 gm/ Sodium Chloride) 112 mls @ 150 mls/hr IV Q6 STEVE Last Infusion: 07/31/19 08:20 Dose: Infused Documented by: Doxycycline Hyclate 100 mg/ (Dextrose) 260 mls @ 250 mls/hr IV Q12 STEVE Last Infusion: 07/30/19 22:25 Dose: Infused Documented by: Insulin Human Lispro (Humalog Kwikpen (Bkc)) 0 unit SC ACHS COUNTS INCLUDE 234 BEDS AT THE [facility]; Protocol Last Admin: 07/31/19 06:49 Dose: Not Given Documented by: Methylprednisolone (Solu-Medrol) 40 mg IV Q8 COUNTS INCLUDE 234 BEDS AT THE [facility] Last Admin: 07/31/19 06:43 Dose: 40 mg Documented by: Nicotine (Nicoderm Cq (Pbkc)) 14 mg TRANSDERM. DAILY COUNTS INCLUDE 234 BEDS AT THE [facility] Last Admin: 07/31/19 08:27 Dose: 14 mg Documented by: Nutritional Formula (Lactose Free) (Glucerna Shake) 120 ml PO 4X/DAY COUNTS INCLUDE 234 BEDS AT THE [facility] Last Admin: 07/31/19 08:25 Dose: 120 ml Documented by: Ondansetron HCl (Zofran) 4 mg IV Q8H PRN PRN PRN Reason: NAUSEA/VOMITING Sodium Chloride () 10 - 40 ml IV UD PRN PRN Reason: SALINE FLUSH Last Admin: 07/30/19 17:49 Dose: 10 ml Documented by: Warfarin Sodium (Coumadin (Pbkc)) 3 mg PO DAILY@1700 COUNTS INCLUDE 234 BEDS AT THE [facility] Last Admin: 07/30/19 17:48 Dose: 3 mg Documented by: Assessment/Plan All Active Problems (Last Reviewed 07/29/19 @ 23:21 by Viktor Engle MD) Sepsis (Acute) Community acquired pneumonia (Acute) Warfarin-induced coagulopathy (Acute) History of non-ST elevation myocardial infarction (NSTEMI) (Resolved 2014) History of coronary artery stent placement (Resolved 01/25/15) H/O coronary artery bypass surgery (Resolved 2007) History of tobacco use (Resolved) RECOMMENDATIONS: 1. Initiate Lasix therapy 2. Continue antibiotics, steroids and mucolytic's 3. Obtain CT scan of the chest 4. Wean oxygen as tolerated 5. Outpatient complete PFT 6. Smoking cessation IMPRESSIONS: 1. Acute hypoxic respiratory failure Clinical suspicion for multifactorial etiology. Patient does have an extensive smoking history and pattern on chest x-ray is consistent with possible COPD that is undiagnosed. Patient has developed a right pleural effusion that may be transudate given patient's advanced heart disease. Patient did appear to respond to Lasix therapy. Will obtain a CT scan of the chest for evaluation of lung parenchyma and possible mediastinal mass leading to infiltrate. If patient has a pleural effusion, diagnostic and therapeutic thoracentesis may be indicated. Would not reinitiate Coumadin therapy until further information is available. Continue with optimization for acute on chronic systolic CHF. Wean oxygen as tolerated. 2. Acute on chronic systolic congestive heart failure/ischemic cardiomyopathy/pleural effusion Patient did receive significant fluid resuscitation on presentation. Clinical suspicion for development of pleural effusion secondary to uncompensated congestive heart failure. Hold on further fluid resuscitation. Initiate Lasix therapy. Would not resume Coumadin therapy as patient may require thoracentesis. 3. History of ventricular mural thrombus/diabetes mellitus type 2/coronary artery disease/advanced age Uppercase care, management, recovery and prognosis. Patient is a confirmed DNR Comfort Care arrest. Continue with sliding scale insulin. Code Visit Inpatient E&M: 27166 Init Hosp L3
[2019-07-31] MEDS: levoFLOXacin 750 MG Tablet PO (10:18)
[2019-07-31] MEDS: Furosemide 40 MG/4 ML Vial IV (10:18)
[2019-07-31] MEDS: 0.9% Saline Lock 10 ML Syringe IV ×2 (10:19→14:38)
[2019-07-31 11:15] LABS: Bedside Glucose 225 mg/dL (70-110)
[2019-07-31] MEDS: Insulin Lispro 100 UNIT/ML INSULN.PEN SC ×2 (12:03→21:44)
--- NOTE | 2019-07-31 13:29 | PN_ITS ---
Patient Problems: Active and Suspected Problems (Last Reviewed 07/29/19 @ 23:21 by Viktor Engle MD) Sepsis (Acute) Community acquired pneumonia (Acute) Warfarin-induced coagulopathy (Acute) Subjective: Thick yellow sputum production continues. No hematuria. No fever/chills. No LE edema. Potts in place with good output. Continues to require high flow o2. - Physical Exam Vitals/I&O's: Vital Signs Temp Pulse Resp BP Pulse Ox 98.5 F 93 16 116/68 94 07/31/19 12:10 07/31/19 12:10 07/31/19 12:10 07/31/19 12:10 07/31/19 12:10 Oxygen Flow Rate (L/min) 40 Oxygen Delivery Method Nasal Cannula Weight: 131 lb 6.328 oz Body Mass Index (BMI) 20.0 Intake and Output for Last 24 Hours 07/29/19 07/30/19 07/31/19 23:59 23:59 22:59 Intake Total 1423 / 1523 2298.00 / 2410.00 614 / 614 Output Total 2425 / 2425 575 / 575 Balance 1423 / 1523 -127.00 / -15.00 39 / 39 General: Alert, Oriented x3, Cooperative HEENT: Atraumatic, PERRLA, EOMI, Normocephalic Neck: Supple, No JVD, Negative Carotid Bruits Lungs: Diminished, Rales, Rhonchi, Wheezes Cardiovascular: Regular rate, No murmurs Abdomen: Bowel Sounds Present, Soft, Non Tender Extremities: No edema, Capillary Refill Less than 3 Seconds Skin: No rashes, No breakdown Musculoskeletal: No Tenderness to Palpation of Joints or Extremities Neurological: Cranial nerves II-XII grossly intact Psych/Mental Status: Normal Affect, Appropriate, Alert and oriented to time, place, person, mood and affect Microbiology Past 72 Hours 07/29/19 19:24 Urine, Clean Catch Urine Culture - Preliminary Culture exhibits no growth. 07/30/19 15:32 Interface Orders Influenza Types A,B Direct FA (JUAN MIGUEL) - Final 07/29/19 19:24 Urine, Clean Catch Streptococcus pneumoniae Antigen (M - Final 07/29/19 19:24 Urine, Clean Catch Legionella Antigen - Final Laboratory Results 07/30/19 16:15: POC Glucose 146 H 07/30/19 21:10: POC Glucose 167 H 07/31/19 04:20: WBC 13.0 H, RBC 4.18 L, Hgb 11.7 L, Hct 36.5 L, MCV 87.3, MCH 28.0, MCHC 32.1, RDW Std Deviation 43.5, RDW Coeff of Herbert 13.6, Plt Count 334, MPV 9.2, Immature Gran % (Auto) 0.500, Neut % (Auto) 92.0 H, Lymph % (Auto) 3.5 L, [place] % (Auto) 3.8, Eos % (Auto) 0.0, Baso % (Auto) 0.2, Absolute Neuts (auto) 12.0 H, Absolute Lymphs (auto) 0.46 L, Nucleated RBC % 0, Differential Comment 07/31/19 04:20: Sodium 138, Potassium 3.7, Chloride 104, Carbon Dioxide 26.0, Anion Gap 8, BUN 18, Creatinine 0.73, Estim Creat Clear Calc 50.49, Est GFR (MDRD) Af Amer 134, Est GFR (MDRD) Non-Af 111, BUN/Creatinine Ratio 24.8 H, Glucose 147 H, Calcium 8.5, Total Bilirubin 0.90, AST 57 H, ALT 50, Alkaline Ph osphatase 167 H, Total Protein 6.5, Albumin 2.1 L, Globulin 4.4 H, Albumin/Globulin Ratio 0.5 L 07/31/19 06:48: POC Glucose 134 H 07/31/19 11:00: POC Glucose 225 H Current Medications Acetaminophen (Tylenol) 650 mg PO Q6H PRN PRN PRN Reason: Pain Score 1-3/Temp > 100.7 F Last Admin: 07/30/19 06:16 Dose: 650 mg Documented by: Albuterol Sulfate (Ventolin Aerosols) 2.5 mg INHALATION Q2H PRN PRN PRN Reason: Shortness of Breath/Wheezing Albuterol/Ipratropium (Duoneb) 3 ml INHALATION Q4HWA.RT STEVE Last Admin: 07/31/19 11:20 Dose: 3 ml Documented by: Atorvastatin Calcium (Lipitor) 80 mg PO QHS STEVE Last Admin: 07/30/19 21:17 Dose: 80 mg Documented by: Benzonatate (Tessalon Perle) 100 mg PO 4X/DAY PRN PRN PRN Reason: COUGH Bisacodyl (Dulcolax) 5 mg PO DAILY PRN PRN PRN Reason: Constipation Dextrose (D50w Syringe) 0 gm IV X1 PRN; Protocol PRN Reason: Hypoglycemia Folic Acid (Folic Acid) 0.5 mg PO DAILYCM [facility] Last Admin: 07/31/19 08:25 Dose: 0.5 mg Documented by: Furosemide (Lasix) 40 mg IV BID@1000,1800 [facility] Last Admin: 07/31/19 10:18 Dose: 40 mg Documented by: Glucagon () 1 mg IM .X1 PRN PRN Reason: Hypoglycemia Guaifenesin (Mucinex) 1,200 mg PO BID [facility] Last Admin: 07/31/19 08:27 Dose: 1,200 mg Documented by: Sodium Chloride () 250 mls @ 15 mls/hr IV .[id number] PRN PRN Reason: Saline Flush Last Infusion: 07/30/19 19:01 Dose: 0 mls/hr Documented by: Insulin Human Lispro (Humalog Kwikpen (Bkc)) 0 unit SC ACHS [facility]; Protocol Last Admin: 07/31/19 12:03 Dose: 2 u Documented by: Levofloxacin (Levaquin Tablet) 750 mg PO DAILY@0600 [facility] Methylprednisolone (Solu-Medrol) 40 mg IV Q8 [facility] Last Admin: 07/31/19 06:43 Dose: 40 mg Documented by: Nicotine (Nicoderm Cq (Pbkc)) 14 mg TRANSDERM. DAILY [facility] Last Admin: 07/31/19 08:27 Dose: 14 mg Documented by: Nutritional Formula (Lactose Free) (Glucerna Shake) 120 ml PO 4X/DAY [facility] Last Admin: 07/31/19 12:06 Dose: 120 ml Documented by: Ondansetron HCl (Zofran) 4 mg IV Q8H PRN PRN PRN Reason: NAUSEA/VOMITING Sodium Chloride () 10 - 40 ml IV UD PRN PRN Reason: SALINE FLUSH Last Admin: 07/31/19 10:19 Dose: 20 ml Documented by: Warfarin Sodium (Coumadin (Pbkc)) 3 mg PO DAILY@1700 [facility] Last Admin: 07/30/19 17:48 Dose: 3 mg Documented by: Medical Necessity - Tobacco Use Smoking Status: Current every day smoker Tobacco Use: Cigarettes Assessment/Plan All Active Problems (Last Reviewed 07/29/19 @ 23:21 by Viktor Engle MD) Sepsis (Acute) Community acquired pneumonia (Acute) Warfarin-induced coagulopathy (Acute) History of non-ST elevation myocardial infarction (NSTEMI) (Resolved 2014) History of coronary artery stent placement (Resolved 01/25/15) H/O coronary artery bypass surgery (Resolved 2007) History of tobacco use (Resolved) 1. Acute hypoxic respiratory failure 2/2 acute CAP - continue levaquin hi - flow o2. Pulm following. productive cough. continue steroids or lasix. bl cx pending. rapid flu negative. urine antigens neg. Chest CT with right hilar lymphadenopathy versus soft tissue lesion mass with right main bronchial narrowing, consolidation, interstitial prominence, right upper lobe infiltrate, versus cellular infiltrating neoplasm, right lower lobe nodule with spiculation, left upper lobe spiculated lesion, right lower lobe peribronchial thickening and basilar consolidation with small effusion concerning for infiltrate. 2. He likely has undlerying COPD and is wheezing as well - solumedrol and duonebs contnued Smoked since age 8. Needs pulm referral. did receive 3L fluid. 3. Chronic systolic CHF and ischemic CM - echo unchanged from prior. Continue lasix. 4. Ventricular mural thrombus - known hx. INR now below 1.8. Restart coumadin lower dose 5. DMt2 - metformin held, SSI. 6. CAD - continue statin, coreg, rafael, aspirin DVT ppx: stew MERCEDES planning: PTOT. No prior home o2. This patient was seen by Kendall Bowling PA-C under the supervision of Doctor Mejia.
--- NOTE | 2019-07-31 15:12 | CT_ITS ---
STUDY: CT CHEST WITH CONTRAST REASON FOR EXAM: Male, 79 years old. Adenopathy, cough and shortness of breath RADIATION DOSAGE (If Supplied By Facility): CTDIvol = ( 11.40 ) mGy, DLP = ( 247.74 ) mGycm TECHNIQUE: Transaxial imaging was performed following intravenous administration of IV Isovue 300 75mL. Multiplanar coronal and sagittal images were reformatted. Individualized dose optimization techniques were used for this CT. COMPARISON: Chest CT from earlier today. FINDINGS: Moderate centrilobular emphysema predominantly in the upper lung zones. Diffuse interstitial opacity of the right upper lobe is redemonstrated with consolidation extending to the right hilum with narrowing and thickening of the right upper lobe bronchi. The soft tissue densities contiguous with right hilar adenopathy and pericarinal adenopathy, stable although better seen on the current exam given IV contrast. There is also consolidation with air bronchograms involving the lateral right lower lobe which is stable. Small right pleural effusion is stable. Benign millimeter nodule in the right lower lobe on image 74 series 4 is redemonstrated. There is a granuloma in the left lower lobe. Irregular, noncalcified nodule the lingula on image 68 is stable when compared to the prior study. Normal heart and pericardium. Sternal wires and mediastinal surgical clips compatible with prior CABG. The left hilum is unremarkable except for calcified lymph nodes. There is mild narrowing of the distal right main and segmental (upper lobe) pulmonary arteries suggesting mass effect. There is atherosclerotic calcification of the aortic arch with tortuosity and elongation of the aortic arch and descending thoracic aorta. No lytic or sclerotic bone lesion. There is no demonstrated abnormality of the visualized upper abdomen. CT/Chest WITH Contrast IMPRESSION: 1. Right upper lobe/perihilar soft tissue mass with right hilar and mediastinal adenopathy worrisome for neoplasm. 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 Component of postobstructive pneumonia/atelectasis possible. Bronchoscopic evaluation and/or biopsy suggested. 2. Suspicious spiculated nodule the lingula, stable short-term follow-up. 3. 9 mm noncalcified nodule in the right lower lobe. 4. Consolidation with air bronchograms in the right lower lobe suspicious for pneumonia. Electronically Signed: Arnold Gould MD (Brooks) at 16:28 EST , Service support ,
--- NOTE | 2019-07-31 16:06 | PN_ITS ---
Patient Problems: Active and Suspected Problems (Last Reviewed 07/29/19 @ 23:21 by Viktor Engle MD) Sepsis (Acute) Community acquired pneumonia (Acute) Warfarin-induced coagulopathy (Acute) Subjective: Patient was seen and examined today, earlier today I had pulmonary medicine see the patient due to his continued white count elevation and high oxygen requirement, I discussed the case with pulmonary medicine subsequently later this morning and pulmonary medicine told me that they felt the patient had a combination of CHF and chronic obstructive lung disease but they could not rule out community-acquired pneumonia. They recommended the patient go on IV Lasix, this afternoon I had a discussion with the patient, his , and his daughter who were in the room visiting him this afternoon. Pulmonary medicine had ordered a CT of the chest without contrast, the CT indicated possible right hilar lymphadenopathy along with nodules in both the left and right lung. I told the patient and his family as well as his that we were unsure what was causing the abnormality on the CAT scan that he could indeed have a neoplasm. I told him that it may require further work-up by pulmonary medicine as an outpatient. In the meantime, I have decided to order a CT of the chest with contrast to try to further clarify the abnormalities on the noncontrasted chest CT. In the end, the patient may need to undergo a coloscopy and I mentioned this to the patient and his family today. Patient has put out approximately 1400 cc of urine since he was started on IV Lasix this morning, I am reluctant to keep him on his present dose of Lasix and have decided to decrease the Lasix dose to 20 mg IV every 12 hours. - Physical Exam Vitals/I&O's: Vital Signs Temp Pulse Resp BP Pulse Ox 98.0 F 97 20 H 109/66 90 07/31/19 14:32 07/31/19 15:21 07/31/19 15:21 07/31/19 14:32 07/31/19 15:21 Oxygen Flow Rate (L/min) 40 Oxygen Delivery Method Nasal Cannula Weight: 59.6 kg Body Mass Index (BMI) 20.0 Intake and Output for Last 24 Hours 07/29/19 07/30/19 07/31/19 23:59 23:59 22:59 Intake Total 1423 / 1523 2298.00 / 2410.00 614 / 614 Output Total 2425 / 2425 1925 / 1925 Balance 1423 / 1523 -127.00 / -15.00 -1311 / -1311 General: Alert, Oriented x3, Cooperative, No apparent distress, Well developed, Well nourished HEENT: Atraumatic, PERRLA, EOMI, Normocephalic Oral: Moist Mucosa Neck: Supple, Trachea Midline, Thyroid Normal Size and Texture Lungs: Normal air movement, Rhonchi - Expiratory rhonchi are scattered over both lungs, Wheezes - Scattered expiratory wheezes are noted over both lungs. Cardiovascular: Regular rate, Regular Rhythm, Normal S1, Normal S2, No murmurs Abdomen: Bowel Sounds Present, Soft, Non Tender, Non-Distended, No hernias noted Extremities: No clubbing, No cyanosis, Capillary Refill Less than 3 Seconds Skin: No rashes, No breakdown Musculoskeletal: No Tenderness to Palpation of Joints or Extremities Neurological: Cranial nerves II-XII grossly intact, Neuro grossly intact, Sensory exam intact to light touch and pain, Coordination normal Psych/Mental Status: Normal Affect, Appropriate, Alert and oriented to time, place, person, mood and affect Microbiology Past 72 Hours 07/29/19 19:24 Urine, Clean Catch Urine Culture - Preliminary Culture exhibits no growth. 07/30/19 15:32 Interface Orders Influenza Types A,B Direct FA (JUAN MIGUEL) - Final 07/29/19 19:24 Urine, Clean Catch Streptococcus pneumoniae Antigen (M - Final 07/29/19 19:24 Urine, Clean Catch Legionella Antigen - Final Laboratory Results 07/30/19 21:10: POC Glucose 167 H 07/31/19 04:20: WBC 13.0 H, RBC 4.18 L, Hgb 11.7 L, Hct 36.5 L, MCV 87.3, MCH 28.0, MCHC 32.1, RDW Std Deviation 43.5, RDW Coeff of Herbert 13.6, Plt Count 334, MPV 9.2, Immature Gran % (Auto) 0.500, Neut % (Auto) 92.0 H, Lymph % (Auto) 3.5 L, Roosevelt % (Auto) 3.8, Eos % (Auto) 0.0, Baso % (Auto) 0.2, Absolute Neuts (auto) 12.0 H, Absolute Lymphs (auto) 0.46 L, Nucleated RBC % 0, Differential Comment 07/31/19 04:20: Sodium 138, Potassium 3.7, Chloride 104, Carbon Dioxide 26.0, Anion Gap 8, BUN 18, Creatinine 0.73, Estim Creat Clear Calc 50.49, Est GFR (MDRD) Af Amer 134, Est GFR (MDRD) Non-Af 111, BUN/Creatinine Ratio 24.8 H, Glucose 147 H, Calcium 8.5, Total Bilirubin 0.90, AST 57 H, ALT 50, Alkaline Phosphatase 167 H, Total Protein 6.5, Albumin 2.1 L, Globulin 4.4 H, Albumin/Globulin Ratio 0.5 L 07/31/19 06:48: POC Glucose 134 H 07/31/19 11:00: POC Glucose 225 H Current Medications Acetaminophen (Tylenol) 650 mg PO Q6H PRN PRN PRN Reason: Pain Score 1-3/Temp > 100.7 F Last Admin: 07/30/19 06:16 Dose: 650 mg Documented by: Albuterol Sulfate (Ventolin Aerosols) 2.5 mg INHALATION Q2H PRN PRN PRN Reason: Shortness of Breath/Wheezing Albuterol/Ipratropium (Duoneb) 3 ml INHALATION Q4HWA.RT [facility] Last Admin: 07/31/19 15:21 Dose: 3 ml Documented by: Atorvastatin Calcium (Lipitor) 80 mg PO QHS [facility] Last Admin: 07/30/19 21:17 Dose: 80 mg Documented by: Benzonatate (Tessalon Perle) 100 mg PO 4X/DAY PRN PRN PRN Reason: COUGH Bisacodyl (Dulcolax) 5 mg PO DAILY PRN PRN PRN Reason: Constipation Dextrose (D50w Syringe) 0 gm IV X1 PRN; Protocol PRN Reason: Hypoglycemia Folic Acid (Folic Acid) 0.5 mg PO DAILYCM [facility] Last Admin: 07/31/19 08:25 Dose: 0.5 mg Documented by: Furosemide (Lasix) 20 mg IV BIDLX [facility] Glucagon () 1 mg IM .X1 PRN PRN Reason: Hypoglycemia Guaifenesin (Mucinex) 1,200 mg PO BID [facility] Last Admin: 07/31/19 08:27 Dose: 1,200 mg Documented by: Sodium Chloride () 250 mls @ 15 mls/hr IV .[id number] PRN PRN Reason: Saline Flush Last Infusion: 07/30/19 19:01 Dose: 0 mls/hr Documented by: Insulin Human Lispro (Humalog Kwikpen (Bkc)) 0 unit SC ACHS [facility]; Protocol Last Admin: 07/31/19 12:03 Dose: 2 u Documented by: Levofloxacin (Levaquin Tablet) 750 mg PO DAILY@0600 [facility] Methylprednisolone (Solu-Medrol) 40 mg IV Q8 [facility] Last Admin: 07/31/19 14:38 Dose: 40 mg Documented by: Nicotine (Nicoderm Cq ([facility])) 14 mg TRANSDERM. DAILY [facility] Last Admin: 07/31/19 08:27 Dose: 14 mg Documented by: Nutritional Formula (Lactose Free) (Glucerna Shake) 120 ml PO 4X/DAY [facility] Last Admin: 07/31/19 12:06 Dose: 120 ml Documented by: Ondansetron HCl (Zofran) 4 mg IV Q8H PRN PRN PRN Reason: NAUSEA/VOMITING Sodium Chloride () 10 - 40 ml IV UD PRN PRN Reason: SALINE FLUSH Last Admin: 07/31/19 14:38 Dose: 10 ml Documented by: Warfarin Sodium (Coumadin ([facility])) 3 mg PO DAILY@1700 [facility] Last Admin: 07/30/19 17:48 Dose: 3 mg Documented by: Medical Necessity - Tobacco Use Smoking Status: Current every day smoker Tobacco Use: Cigarettes Assessment/Plan All Active Problems (Last Reviewed 07/29/19 @ 23:21 by Viktor Engle MD) Sepsis (Acute) Community acquired pneumonia (Acute) Warfarin-induced coagulopathy (Acute) History of non-ST elevation myocardial infarction (NSTEMI) (Resolved 2014) History of coronary artery stent placement (Resolved 01/25/15) H/O coronary artery bypass surgery (Resolved 2007) History of tobacco use (Resolved) #1 sepsis secondary to community-acquired pneumonia right upper lung-suspect gram-positive bacterial infection-I discussed the patient's antibiotic coverage with pulmonary medicine today, pulmonary medicine agreed with changing the patient's antibiotic to Levaquin and stopping the Unasyn and Vibramycin. #2 community-acquired pneumonia-probably secondary to gram-positive bacteria- again antibiotic coverage was changed today #3 acute on chronic systolic CHF-EF 25%-again I decided to lower the patient's Lasix dose and observe him for his response to the lower Lasix dose. Low-dose DAVID will be added to the patient's medical regimen #4 acute hypoxic respiratory failure secondary to CHF, community-acquired pneumonia, and underlying COPD-O2 sat will be monitored, oxygen will be weaned if possible #5 chronic obstructive pulmonary disease #[address] of the chest indicating right hilar lymphadenopathy and abnormal pulmonary nodules right and left lungs-again pulmonary medicine will see the patient tomorrow, repeat CT with contrast will be ordered #7 ischemic cardiomyopathy-I will add low-dose lisinopril-he was on this medication as an outpatient #8 coagulopathy secondary to chronic warfarin usage-patient will have an INR rechecked tomorrow #9 coronary artery disease #10 essential hypertension #11 hyperlipidemia #12 type 2 diabetes-continue to monitor patient's blood sugars #13 leukocytosis-possibly secondary to IV corticosteroid usage, reduce IV methylprednisolone to 20 mg every 8 hours Code Visit Inpatient E&M: [id number] [facility] L[facility]
[2019-07-31 17:26] LABS: Bedside Glucose 143 mg/dL (70-110)
[2019-07-31] MEDS: Furosemide 20 MG/2 ML VIAL IV (18:06)
[2019-07-31] MEDS: Lisinopril 2.5 MG Tablet PO (18:06)
[2019-07-31] MEDS: Atorvastatin Calcium 80 MG Tablet PO (21:47)
[2019-07-31 21:55] LABS: Bedside Glucose 150 mg/dL (70-110)
[2019-08-01] VITALS (23 sets, daily range): BP systolic 99–117; BP diastolic 61–69; PULSE 84–108; RESP 12–20; TEMP 36.4–36.8; O2SAT 91–98
[2019-08-01 05:42] LABS: Absolute Lymphocyte Count 0.69 X10^3/uL (0.83-4.51); Absolute Neutrophil Count 17.1 X10^3/uL (2.0-7.7); Basophil# 0.03 X10^3/uL; Basophil% 0.2 % (0-1); Hematocrit 38.8 % (40-54); Hemoglobin 12.6 g/dL (13.0-16.5); Lymphocyte # 0.69 X10^3/ul (4.0); Lymphocyte % 3.6 % (19-41); Mean Corp Hgb Conc 32.5 g/dL (32-36); Mean Corpuscular Hgb 27.9 pg (27.0-32.0); Mean Platelet Vol. 8.8 fl (6.2-12.0); Monocyte# 1.08 X10^3/uL; Monocyte% 5.7 % (0-10); NRBC Flagged by Analyzer 0 % (0-5); Neutrophil # 17.07 X10^3/uL (2.7-7.7); Neutrophil % 89.2 % (47-70); Platelet Count 450 K/mm3 (150-450); RBC Distribution Width CV 13.4 % (11.6-14.6); RBC Distribution Width SD 42.2 fl (35.1-43.9); Red Blood Count 4.51 M/mm3 (4.6-6.2); White Blood Count 19.1 K/mm3 (4.4-11.0)
[2019-08-01] MEDS: levoFLOXacin 750 MG Tablet PO (05:42)
[2019-08-01 05:54] LABS: International Normalized Ratio 2.3; Prothrombin Time (Protime)PT. 25.3 SECONDS (11.7-14.9)
[2019-08-01 06:10] LABS: ALB/GLOB Ratio 0.5 RATIO (0.9-2.4); AST(SGOT) 136 U/L (15-37); Alanine Aminotransfer ALT/SGPT 113 U/L (16-61); Albumin, Serum 2.3 g/dL (3.2-5.0); Alkaline Phosphatase 172 U/L (45-117); Anion Gap 10 (5-15); BUN 32 mg/dL (7-18); BUN/Creat Ratio 34.7 RATIO (10-20); Calcium,Total 8.8 mg/dL (8.5-10.1); Chloride 98 mmol/L (98-107); Creatinine, Serum 0.92 mg/dL (0.70-1.30); EST Glomerular Filtration Rate 84 mL/min (>60); Est Glom Filt Rate - Afr Amer 102 mL/min (>60); Estimated Creatinine Clearance 54.89 ml/min; Globulin 4.6 g/dL (2.2-4.2); Glucose 164 mg/dL (74-106); Magnesium 2.2 mg/dL (1.6-2.6); Protein, Total 6.9 g/dL (6.4-8.2); Sodium Level 138 mmol/L (136-145)
[2019-08-01] MEDS: Insulin Lispro 100 UNIT/ML INSULN.PEN SC ×2 (06:40→17:16)
[2019-08-01 06:46] LABS: Bedside Glucose 152 mg/dL (70-110)
[2019-08-01] MEDS: Ipratropium/Albuterol Sulfate 3 ML AMPUL.NEB INHALATION ×2 (07:11→15:35)
--- NOTE | 2019-08-01 07:50 | PCM.PN.PUL ---
Patient Problems: Active and Suspected Problems (Last Reviewed 07/29/19 @ 23:21 by Viktor Engle MD) Sepsis (Acute) Community acquired pneumonia (Acute) Warfarin-induced coagulopathy (Acute) Subjective: The patient was seen and examined at the bedside this morning. Events from the last 24 hours have been reviewed. The patient is currently afebrile, hemodynamically stable and maintaining appropriate oxygen saturations on high flow nasal cannula supplemental O2. The patient is currently sitting in his bedside recliner and does report the presence of shortness of breath. I reviewed the results of his CT chest and answer questions accordingly. Objective: The patient's most recent lab work, culture data and imaging studies have all been personally reviewed. Strep and urine Legionella antigens were negative. Rapid influenza screen was negative. CT chest with contrast did reveal a great deal of background emphysematous changes along with what appears to be a right upper lobe airspace opacity. There does appear to be a right-sided perihilar mass with associated mediastinal adenopathy. Incidental note was also made of a spiculated nodule in the lingula, along with a subcentimeter nodule in the right lower lobe. There was airspace consolidation in the right lower lobe. - Physical Exam Vitals/I&O's: Vital Signs Temp Pulse Resp BP Pulse Ox 97.7 F L 88 18 112/61 93 08/01/19 05:07 08/01/19 07:11 08/01/19 07:11 08/01/19 05:07 08/01/19 07:11 Oxygen Flow Rate (L/min) 40 Oxygen Delivery Method Nasal Cannula Weight: 131 lb 6.328 oz Body Mass Index (BMI) 20.0 Intake and Output for Last 24 Hours 07/31/19 07/31/19 08/01/19 00:59 23:59 23:59 Intake Total 480 / 480 Output Total 250 / 250 Balance 230 / 230 General: Alert, Cooperative, No apparent distress HEENT: Atraumatic, PERRLA, Normocephalic Oral: No Gingival or Mucosal Lesions/ Ulcerations Neck: Supple, No Nodes, Trachea Midline Lungs: Diminished, Rales Cardiovascular: Regular rate, Regular Rhythm, Normal S1, Normal S2, No murmurs Abdomen: Bowel Sounds Present, Soft, Non Tender Extremities: No cyanosis, No edema, Clubbing Skin: No breakdown Musculoskeletal: No Tenderness to Palpation of Joints or Extremities Lymphatic: No Cervical, Supraclavicular, or Inguinal Adenopathy Neurological: Cranial nerves II-XII grossly intact, Neuro grossly intact Psych/Mental Status: Normal Affect, Appropriate Microbiology Past 72 Hours Labs (Last 48 Hours) 07/30/19 07/30/19 07/30/19 06:30 11:43 13:33 WBC RBC Hgb Hct MCV MCH MCHC RDW Std Deviation RDW Coeff of Herbert Plt Count MPV Immature Gran % (Auto) Neut % (Auto) Lymph % (Auto) [place] % (Auto) Eos % (Auto) Baso % (Auto) Absolute Neuts (auto) Absolute Lymphs (auto) Nucleated RBC % Differential Comment PT INR Specimen Type ART Sample Site R Radial pH 7.33 L Bicarbonate Actual 22.1 POC Total CO2 23 Base Excess -4 L O2 Saturation 91 L ABG pCO2 41.6 ABG pO2 65 L Tan Test NA O2 Delivery Device Nasal Can Liter Flow 5.0 Blood Gas Notified Whom [facility] MD Blood Gas Notified Time 1332 Sodium Potassium Chloride Carbon Dioxide Anion Gap BUN Creatinine Estim Creat Clear Calc Est GFR (MDRD) Af Amer Est GFR (MDRD) Non-Af BUN/Creatinine Ratio Glucose Calcium Magnesium Total Bilirubin AST ALT Alkaline Phosphatase B-Natriuretic Peptide 250.2 H Total Protein Albumin Globulin Albumin/Globulin Ratio POC Glucose 130 H 07/30/19 07/30/19 07/31/19 16:15 21:10 04:20 WBC 13.0 H RBC 4.18 L Hgb 11.7 L Hct 36.5 L MCV 87.3 MCH 28.0 MCHC 32.1 RDW Std Deviation 43.5 RDW Coeff of Herbert 13.6 Plt Count 334 MPV 9.2 Immature Gran % (Auto) 0.500 Neut % (Auto) 92.0 H Lymph % (Auto) 3.5 L [place] % (Auto) 3.8 Eos % (Auto) 0.0 Baso % (Auto) 0.2 Absolute Neuts (auto) 12.0 H Absolute Lymphs (auto) 0.46 L Nucleated RBC % 0 Differential Comment PT INR Specimen Type Sample Site pH Bicarbonate Actual POC Total CO2 Base Excess O2 Saturation ABG pCO2 ABG pO2 Tan Test O2 Delivery Device Liter Flow Blood Gas Notified Whom Blood Gas Notified Time Sodium Potassium Chloride Carbon Dioxide Anion Gap BUN Creatinine Estim Creat Clear Calc Est GFR (MDRD) Af Amer Est GFR (MDRD) Non-Af BUN/Creatinine Ratio Glucose Calcium Magnesium Total Bilirubin AST ALT Alkaline Phosphatase B-Natriuretic Peptide Total Protein Albumin Globulin Albumin/Globulin Ratio POC Glucose 146 H 167 H 07/31/19 07/31/19 07/31/19 04:20 06:48 11:00 WBC RBC Hgb Hct MCV MCH MCHC RDW Std Deviation RDW Coeff of Herbert Plt Count MPV Immature Gran % (Auto) Neut % (Auto) Lymph % (Auto) [place] % (Auto) Eos % (Auto) Baso % (Auto) Absolute Neuts (auto) Absolute Lymphs (auto) Nucleated RBC % Differential Comment PT INR Specimen Type Sample Site pH Bicarbonate Actual POC Total CO2 Base Excess O2 Saturation ABG pCO2 ABG pO2 Tan Test O2 Delivery Device Liter Flow Blood Gas Notified Whom Blood Gas Notified Time Sodium 138 Potassium 3.7 Chloride 104 Carbon Dioxide 26.0 Anion Gap 8 BUN 18 Creatinine 0.73 Estim Creat Clear Calc 50.49 Est GFR (MDRD) Af Amer 134 Est GFR (MDRD) Non-Af 111 BUN/Creatinine Ratio 24.8 H Glucose 147 H Calcium 8.5 Magnesium Total Bilirubin 0.90 AST 57 H ALT 50 Alkaline Phosphatase 167 H B-Natriuretic Peptide Total Protein 6.5 Albumin 2.1 L Globulin 4.4 H Albumin/Globulin Ratio 0.5 L POC Glucose 134 H 225 H 07/31/19 07/31/19 08/01/19 16:22 21:43 05:20 WBC 19.1 H RBC 4.51 L Hgb 12.6 L Hct 38.8 L MCV 86.0 MCH 27.9 MCHC 32.5 RDW Std Deviation 42.2 RDW Coeff of Herbert 13.4 Plt Count 450 MPV 8.8 Immature Gran % (Auto) 1.300 H Neut % (Auto) 89.2 H Lymph % (Auto) 3.6 L [place] % (Auto) 5.7 Eos % (Auto) 0.0 Baso % (Auto) 0.2 Absolute Neuts (auto) 17.1 H Absolute Lymphs (auto) 0.69 L Nucleated RBC % 0 Differential Comment PT INR Specimen Type Sample Site pH Bicarbonate Actual POC Total CO2 Base Excess O2 Saturation ABG pCO2 ABG pO2 Tan Test O2 Delivery Device Liter Flow Blood Gas Notified Whom Blood Gas Notified Time Sodium Potassium Chloride Carbon Dioxide Anion Gap BUN Creatinine Estim Creat Clear Calc Est GFR (MDRD) Af Amer Est GFR (MDRD) Non-Af BUN/Creatinine Ratio Glucose Calcium Magnesium Total Bilirubin AST ALT Alkaline Phosphatase B-Natriuretic Peptide Total Protein Albumin Globulin Albumin/Globulin Ratio POC Glucose 143 H 150 H 08/01/19 08/01/19 08/01/19 05:20 05:20 06:38 WBC RBC Hgb Hct MCV MCH MCHC RDW Std Deviation RDW Coeff of Herbert Plt Count MPV Immature Gran % (Auto) Neut % (Auto) Lymph % (Auto) [place] % (Auto) Eos % (Auto) Baso % (Auto) Absolute Neuts (auto) Absolute Lymphs (auto) Nucleated RBC % Differential Comment PT 25.3 H INR 2.3 Specimen Type Sample Site pH Bicarbonate Actual POC Total CO2 Base Excess O2 Saturation ABG pCO2 ABG pO2 Tan Test O2 Delivery Device Liter Flow Blood Gas Notified Whom Blood Gas Notified Time Sodium 138 Potassium 4.0 Chloride 98 Carbon Dioxide 30.0 Anion Gap 10 BUN 32 H Creatinine 0.92 Estim Creat Clear Calc 54.89 Est GFR (MDRD) Af Amer 102 Est GFR (MDRD) Non-Af 84 BUN/Creatinine Ratio 34.7 H Glucose 164 H Calcium 8.8 Magnesium 2.2 Total Bilirubin 0.70 AST 136 H ALT 113 H Alkaline Phosphatase 172 H B-Natriuretic Peptide Total Protein 6.9 Albumin 2.3 L Globulin 4.6 H Albumin/Globulin Ratio 0.5 L POC Glucose 152 H Microbiology 07/29/19 19:24 Urine, Clean Catch Urine Culture - Preliminary Culture exhibits no growth. 07/30/19 15:32 Interface Orders Influenza Types A,B Direct FA (JUAN MIGUEL) - Final 07/29/19 19:24 Urine, Clean Catch Streptococcus pneumoniae Antigen (M - Final 07/29/19 19:24 Urine, Clean Catch Legionella Antigen - Final Clinical Impression(s) from Imaging Studies Chest X-Ray 07/29/19 17:10 IMPRESSION: Right upper lobe infiltrate. Small right pleural effusion. Electronically Signed: Regulo Ramirez, at 17:36 EDT Tel , Service support , Chest X-Ray 07/30/19 08:36 IMPRESSION: Stable exam. Electronically Signed: Regulo Ramirez, at 13:59 EDT Tel , Service support , Chest X-Ray 07/30/19 13:04 IMPRESSION: Stable exam. Electronically Signed: Regulo Ramirez, at 13:59 EDT Tel , Service support , Chest X-Ray 07/31/19 07:35 IMPRESSION: 1. Mild stable change since 07/30/2019. Decreased infiltrates of the right lower lobe. 2. Persistent right perihilar masslike consolidation and nodule in the left midlung. Neoplasm should be considered. 3. Small right pleural effusion. Electronically Signed: Arnold Gould MD (Brooks) at 12:29 EST , Service support , Chest CT 07/31/19 08:56 IMPRESSION: 1. Right hilar lymphadenopathy versus soft tissue lesion/mass causing right main bronchi narrowing with consolidation and interstitial prominence throughout the right upper lobe most concerning for acute infiltrate with cellular infiltrating neoplasm also not excluded in the appropriate clinical setting. In addition there is right lower lobe small nodule with spiculation (series 4 image 75) with left upper lobe spiculated lesion measuring 1.3 cm (series 4 image 70) concerning for neoplastic process versus secondary infectious process. 1. Right lower lobe peribronchial thickening and basilar consolidation with small effusion also concerning for acute infiltrate. Recommend follow-up imaging to assess for treatment improvement as underlying neoplastic process is not excluded. Electronically Signed: Chao Denny DO at 11:05 EST , Service support , Chest CT 07/31/19 15:12 IMPRESSION: 1. Right upper lobe/perihilar soft tissue mass with right hilar and mediastinal adenopathy worrisome for neoplasm. 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 Component of postobstructive pneumonia/atelectasis possible. Bronchoscopic evaluation and/or biopsy suggested. 2. Suspicious spiculated nodule the lingula, stable short-term follow-up. 3. 9 mm noncalcified nodule in the right lower lobe. 4. Consolidation with air bronchograms in the right lower lobe suspicious for pneumonia. Electronically Signed: Arnold Gould MD (Brooks) at 16:28 EST , Service support , Current Medications Acetaminophen (Tylenol) 650 mg PO Q6H PRN PRN PRN Reason: Pain Score 1-3/Temp > 100.7 F Last Admin: 07/30/19 06:16 Dose: 650 mg Documented by: Albuterol Sulfate (Ventolin Aerosols) 2.5 mg INHALATION Q2H PRN PRN PRN Reason: Shortness of Breath/Wheezing Albuterol/Ipratropium (Duoneb) 3 ml INHALATION Q4HWA.RT [facility] Last Admin: 08/01/19 07:11 Dose: 3 ml Documented by: Atorvastatin Calcium (Lipitor) 80 mg PO QHS [facility] Last Admin: 07/31/19 21:47 Dose: 80 mg Documented by: Benzonatate (Tessalon Perle) 100 mg PO 4X/DAY PRN PRN PRN Reason: COUGH Bisacodyl (Dulcolax) 5 mg PO DAILY PRN PRN PRN Reason: Constipation Dextrose (D50w Syringe) 0 gm IV X1 PRN; Protocol PRN Reason: Hypoglycemia Folic Acid (Folic Acid) 0.5 mg PO DAILYCM [facility] Last Admin: 07/31/19 08:25 Dose: 0.5 mg Documented by: Furosemide (Lasix) 20 mg IV BIDLX [facility] Last Admin: 07/31/19 18:06 Dose: 20 mg Documented by: Glucagon () 1 mg IM .X1 PRN PRN Reason: Hypoglycemia Guaifenesin (Mucinex) 1,200 mg PO BID [facility] Last Admin: 07/31/19 21:46 Dose: 1,200 mg Documented by: Sodium Chloride () 250 mls @ 15 mls/hr IV .[id number] PRN PRN Reason: Saline Flush Last Infusion: 07/30/19 19:01 Dose: 0 mls/hr Documented by: Insulin Human Lispro (Humalog Kwikpen (Bkc)) 0 unit SC ACHS [facility]; Protocol Last Admin: 08/01/19 06:40 Dose: 1 u Documented by: Levofloxacin (Levaquin Tablet) 750 mg PO DAILY@0600 [facility] Last Admin: 08/01/19 05:42 Dose: 750 mg Documented by: Lisinopril (Zestril) 2.5 mg PO DAILY [facility] Methylprednisolone (Solu-Medrol) 20 mg IV Q8 [facility] Last Admin: 08/01/19 05:42 Dose: 20 mg Documented by: Nicotine (Nicoderm Cq (kc)) 14 mg TRANSDERM. DAILY [facility] Last Admin: 07/31/19 08:27 Dose: 14 mg Documented by: Nutritional Formula (Lactose Free) (Glucerna Shake) 120 ml PO 4X/DAY [facility] Last Admin: 07/31/19 21:45 Dose: 120 ml Documented by: Ondansetron HCl (Zofran) 4 mg IV Q8H PRN PRN PRN Reason: NAUSEA/VOMITING Sodium Chloride () 10 - 40 ml IV UD PRN PRN Reason: SALINE FLUSH Last Admin: 07/31/19 14:38 Dose: 10 ml Documented by: Warfarin Sodium (Coumadin (Pbkc)) 3 mg PO DAILY@1700 [facility] Last Admin: 07/31/19 18:07 Dose: 3 mg Documented by: Medical Necessity - Tobacco Use Smoking Status: Current every day smoker Tobacco Use: Cigarettes Assessment/Plan All Active Problems (Last Reviewed 07/29/19 @ 23:21 by Viktor Engle MD) Sepsis (Acute) Community acquired pneumonia (Acute) Warfarin-induced coagulopathy (Acute) History of non-ST elevation myocardial infarction (NSTEMI) (Resolved 2014) History of coronary artery stent placement (Resolved 01/25/15) H/O coronary artery bypass surgery (Resolved 2007) History of tobacco use (Resolved) RECOMMENDATIONS: 1. Continue to wean supplemental oxygen as tolerated. 2. Continue bronchodilators and antibiotics. 3. Transition from IV steroids to prednisone 40 mg daily. 4. Consider increasing diuretic regimen to improve oxygenation status. 5. Outpatient pulmonary follow-up with bronchoscopic evaluation, if feasible. IMPRESSIONS: 1. Acute hypoxemic respiratory failure Likely secondary to presumed obstructive lung disease with exacerbation in the setting of a pulmonary infectious process and possible decompensated heart failure. The patient does appear to be responding to antibiotics and scheduled diuretic therapy. I would recommend continuing scheduled bronchodilators and steroids as well. The IV methylprednisone can likely be transitioned to prednisone 40 mg by mouth. Wean supplemental oxygen as tolerated. 2. Abnormal chest CT Again, there was evidence of airspace disease along with what appears to be a right-sided perihilar mass and associated adenopathy. Given the patient's extensive smoking history, this of course would be concerning for underlying malignancy. I do agree that the patient will likely require bronchoscopic evaluation, likely in the form of an EBUS procedure. This would need to be accomplished on an outpatient basis. Therefore, I would work towards improving the patient's oxygenation status in hopes that he can be discharged home with outpatient pulmonary follow-up. If the patient is not able to be weaned from oxygen, inpatient bronchoscopy can be considered. Nevertheless, the patient would be high risk and may require intubation as a consequence. 3. Decompensated heart failure The patient's echocardiogram did reveal evidence of a depressed ejection fraction to 25%. He is currently on scheduled Lasix, which I would recommend optimizing as tolerated in hopes of improving his oxygenation status. The patient appears to be followed by Dr. Peraza in the cardiology clinic. 4. History of ventricular mural thrombus/diabetes mellitus type 2/coronary artery disease/advanced age Complicates care, management, recovery and prognosis. Patient wishes to be full code. Continue Coumadin as ordered. This note was generated with [employer] dictation software. It may contain incorrect words, spelling, and punctuation that were not noted in checking the note before signing. Code Visit Inpatient E&M: 60827 [facility] Hosp L3
--- NOTE | 2019-08-01 08:03 | US_ITS ---
STUDY: ABDOMINAL ULTRASOUND - RIGHT UPPER QUADRANT REASON FOR VISIT: Male, 79 years old abnormal LFTs TECHNIQUE: Ultrasound evaluation of the right upper quadrant was performed with real-time and static hernandez-scale imaging. TECHNICAL QUALITY: Adequate. COMPARISON: Chest CT of 07/31/2019 FINDINGS: Small right pleural effusion noted. Liver: The liver measures 16.5 cm. There is normal echogenicity of the liver. The bile ducts are within normal limits. There is hepatic color flow. The direction of portal flow is hepatopetal. There is no demonstrated mass lesion. Gallbladder: Normal distended gallbladder. The gallbladder wall measures 2.4 mm. There is a negative sonographic Lin's sign. There is no pericholecystic fluid. There are no gallstones. Common Bile Duct (C.B.D.): The common bile duct measures 2.3 mm. Pancreas: There is increased echogenicity of the pancreas. There is no demonstrated pancreatic mass or cyst. Right Kidney: Normal size of the right kidney. The right kidney measures 10.1 x 4.6 x 6.1 cm. Normal renal cortex. The right cortex measures 1.5 cm. There is no demonstrated renal mass or cyst. There is no right hydronephrosis. US/Abdomen Limited IMPRESSION: 1. No hepatic masses or biliary dilation. 2. Small right pleural effusion as evident on CT from yesterday. Electronically Signed: Arnold Gould MD (Brooks) at 12:13 EST , Service support ,
[2019-08-01] MEDS: Furosemide 20 MG/2 ML VIAL IV ×2 (09:16→17:16)
[2019-08-01] MEDS: 0.9% Saline Lock 10 ML Syringe IV ×4 (09:24→22:43)
--- NOTE | 2019-08-01 10:18 | CT_ITS ---
STUDY: CT ABDOMEN AND PELVIS WITH CONTRAST REASON FOR EXAM: Male, 79 years old. Cough and adenopathy, lung nodules RADIATION DOSAGE (If Supplied By Facility): CTDIvol = ( 4.88 ) mGy, DLP = ( 331.67 ) mGycm TECHNIQUE: Transaxial images were obtained from the dome of the diaphragm to the symphysis pubis with oral contrast. IV/Oral Isovue 300 100CC was administered. Sagittal and coronal images were reconstructed. Individualized dose optimization techniques were used for this CT. COMPARISON: Chest CT from yesterday, abdomen ultrasound from earlier today FINDINGS: Base of the chest is unchanged since chest CT yesterday. Normal liver. Normal gallbladder and extrahepatic biliary system. Normal spleen. Normal pancreas. Normal bilateral adrenal glands. Normal right kidney. Normal left kidney. Normal visualized stomach. Normal small intestine. There are multiple colonic diverticula consistent with diverticulosis. The appendix is visualized and appears normal. There is diffuse atherosclerotic calcification of the abdominal aorta with elongation and tortuosity, but without a demonstrated aneurysm. Normal inferior vena cava. Normal retroperitoneum. Potts catheter decompresses urinary bladder. There are prostatic calcifications. There are calcifications of the penis. Normal abdominal wall. There are diffuse degenerative changes of the visualized lumbar spine. Mild compression fracture of L3 with Schmorl's node likely chronic finding. No lytic or sclerotic bone lesions are seen except for a few small scattered hemangiomata (benign) CT/Abdomen/Pelvis WITH Contrast IMPRESSION: 1. No intra-abdominal mass/adenopathy. 2. Atherosclerosis and ectasia of the abdominal aorta. 3. Diverticulosis without evidence of diverticulitis. 4. Prostate calcifications. 5. Potts catheter. 6. Base of the chest unchanged as seen and described on chest CT report from yesterday. Electronically Signed: Arnold Gould MD (Brooks) at 14:10 EST , Service support ,
--- NOTE | 2019-08-01 10:22 | CASEMGMT ---
Addendum entered by Lacey Dudley 08/01/19 11:54: Patient provided a copy of [facility] DME providers to look over if Home Oxygen needed at time of DC. RATNA Moon Original Note: RN CM Assessment Introduced role of RN CM to patient and patient Dtr Nguyen at bedside.? Patient is alert, oriented and able?to participate in RN CM Assessment. ?Care providers, pharmacy, and demographics verified. Presentation: SOB worse over the past week, Cough. Admit Dx: Sepsis secondary to CAP Re-Admit: No Barriers/Issues: None, has a good support system with two dtrs PCP: Melvin Bhakta Specialists: Cardio- Dr Peraza Preferred Pharmacy: [facility] [place], [place] Insurance: [place] PPO Rx Benefit:?Yes LNOK: Devorah Jaquez LW/HPOA: None on file at [facility]. States has a LW, Denies HPOA- wanted information so this service writer advisor gave Advanced Directive information and Rack card, Aware Can complete as an outpatient with dept if chooses. Living Arrangements:? Lives with in a 2 story home, bedroom located on 1st ia. 1 step to enter front, no steps to enter back. ADL?s: Independent with ambulation and ADLs Transportation: Patient or two Dtrs drive DME: Shower Chair with grab bar in shower, Glucometer. Denies any other DME HHC: Past, Cannot recall agency SNF: None Goal: Home and states possible oxygen, otherwise NN. Denies any questions, concerns, or issues with DC planning at this time. Aware CM remains available for any emerging needs. DC PLAN: Home with possible Oxygen. RATNA Moon
--- NOTE | 2019-08-01 10:41 | NURSING ---
pt transported down to ultrasound via bed on 6L NC at this time.
--- NOTE | 2019-08-01 11:15 | NURSING ---
Addendum entered by Jade Finney 08/01/19 13:21: pt transported to CT via bed at this time Original Note: pt returned to unit from ultrasound. oral contrast bottle marked, explained and given to patient, and called CT to alert them to start time, plan for CT at 1315
[2019-08-01 11:36] LABS: Bedside Glucose 126 mg/dL (70-110)
[2019-08-01 12:03] LABS: Pathologist Review Reviewed
--- NOTE | 2019-08-01 12:46 | PCM.PROGNOTE ---
Patient Problems: Active and Suspected Problems (Last Reviewed 07/29/19 @ 23:21 by Viktor Engle MD) Sepsis (Acute) Community acquired pneumonia (Acute) Warfarin-induced coagulopathy (Acute) Subjective: Mild improvement in SOB. Still requiring high flow cannula. ongoing productive cough, tho patient feels it is less frequent. No fever/chills/sweats overnight. No CP. No LE edema. No discomfort with cath. - Physical Exam Vitals/I&O's: Vital Signs Temp Pulse Resp BP Pulse Ox 97.6 F L 95 14 107/67 96 08/01/19 11:43 08/01/19 11:43 08/01/19 11:43 08/01/19 11:43 08/01/19 11:43 Oxygen Flow Rate (L/min) 30 Oxygen Delivery Method Nasal Cannula Weight: 131 lb 6.328 oz Body Mass Index (BMI) 20.0 Intake and Output for Last 24 Hours 07/31/19 07/31/19 08/01/19 00:59 23:59 23:59 Intake Total 480 / 480 Output Total 850 / 850 Balance -370 / -370 General: Alert, Oriented x3, Cooperative, - - frail HEENT: Atraumatic, PERRLA, EOMI, Normocephalic Neck: Supple, No JVD, Negative Carotid Bruits Lungs: Diminished, Rales, Wheezes Cardiovascular: Regular rate, No murmurs Abdomen: Bowel Sounds Present, Soft, Non Tender Extremities: No edema, Capillary Refill Less than 3 Seconds Skin: No rashes, No breakdown Musculoskeletal: No Tenderness to Palpation of Joints or Extremities Neurological: Cranial nerves II-XII grossly intact Psych/Mental Status: Normal Affect, Appropriate, Alert and oriented to time, place, person, mood and affect Microbiology Past 72 Hours 07/29/19 17:25 Blood Culture (Wb) - Right Wrist Blood Culture - Preliminary No growth in 48 hours. 07/29/19 17:15 Blood Culture (Wb) - Anticubital Left Blood Culture - Preliminary No growth in 48 hours. 07/29/19 19:24 Urine, Clean Catch Urine Culture - Final Culture exhibits no growth. 07/30/19 15:32 Interface Orders Influenza Types A,B Direct FA (JUAN MIGUEL) - Final 07/29/19 19:24 Urine, Clean Catch Streptococcus pneumoniae Antigen (M - Final 07/29/19 19:24 Urine, Clean Catch Legionella Antigen - Final Laboratory Results 07/29/19 17:15: Diff Path Review Reviewed 07/31/19 16:22: POC Glucose 143 H 07/31/19 21:43: POC Glucose 150 H 08/01/19 05:20: WBC 19.1 H, RBC 4.51 L, Hgb 12.6 L, Hct 38.8 L, MCV 86.0, MCH 27.9, MCHC 32.5, RDW Std Deviation 42.2, RDW Coeff of Herbert 13.4, Plt Count 450, MPV 8.8, Immature Gran % (Auto) 1.300 H, Neut % (Auto) 89.2 H, Lymph % (Auto) 3.6 L, Ness % (Auto) 5.7, Eos % (Auto) 0.0, Baso % (Auto) 0.2, Absolute Neuts (auto) 17.1 H, Absolute Lymphs (auto) 0.69 L, Nucleated RBC % 0 08/01/19 05:20: PT 25.3 H, INR 2.3 08/01/19 05:20: Sodium 138, Potassium 4.0, Chloride 98, Carbon Dioxide 30.0, Anion Gap 10, BUN 32 H, Creatinine 0.92, Estim Creat Clear Calc 54.89, Est GFR (MDRD) Af Amer 102, Est GFR (MDRD) Non-Af 84, BUN/Creatinine Ratio 34.7 H, Glucose 164 H, Calcium 8.8, Magnesium 2.2, Total Bilirubin 0.70, AST 136 H, ALT 113 H, Alkaline Phosphatase 172 H, Total Protein 6.9, Albumin 2.3 L, Globulin 4.6 H, Albumin/Globulin Ratio 0.5 L 08/01/19 06:38: POC Glucose 152 H 08/01/19 11:24: POC Glucose 126 H Current Medications Acetaminophen (Tylenol) 650 mg PO Q6H PRN PRN PRN Reason: Pain Score 1-3/Temp > 100.7 F Last Admin: 07/30/19 06:16 Dose: 650 mg Documented by: Albuterol Sulfate (Ventolin Aerosols) 2.5 mg INHALATION Q2H PRN PRN PRN Reason: Shortness of Breath/Wheezing Albuterol/Ipratropium (Duoneb) 3 ml INHALATION Q4HWA.RT [facility] Last Admin: 08/01/19 10:30 Dose: Not Given Documented by: Atorvastatin Calcium (Lipitor) 80 mg PO QHS [facility] Last Admin: 07/31/19 21:47 Dose: 80 mg Documented by: Benzonatate (Tessalon Perle) 100 mg PO 4X/DAY PRN PRN PRN Reason: COUGH Bisacodyl (Dulcolax) 5 mg PO DAILY PRN PRN PRN Reason: Constipation Dextrose (D50w Syringe) 0 gm IV X1 PRN; Protocol PRN Reason: Hypoglycemia Folic Acid (Folic Acid) 0.5 mg PO DAILYCM [facility] Last Admin: 08/01/19 08:59 Dose: Not Given Documented by: Furosemide (Lasix) 20 mg IV BIDLX [facility] Last Admin: 08/01/19 09:16 Dose: 20 mg Documented by: Glucagon () 1 mg IM .X1 PRN PRN Reason: Hypoglycemia Guaifenesin (Mucinex) 1,200 mg PO BID [facility] Last Admin: 08/01/19 08:59 Dose: Not Given Documented by: Sodium Chloride () 250 mls @ 15 mls/hr IV .[id number] PRN PRN Reason: Saline Flush Last Infusion: 07/30/19 19:01 Dose: 0 mls/hr Documented by: Insulin Human Lispro (Humalog Jose Angelpen (Bkc)) 0 unit SC ACHS [facility]; Protocol Last Admin: 08/01/19 12:06 Dose: Not Given Documented by: Levofloxacin (Levaquin Tablet) 750 mg PO DAILY@0600 [facility] Last Admin: 08/01/19 05:42 Dose: 750 mg Documented by: Lisinopril (Zestril) 2.5 mg PO DAILY [facility] Last Admin: 08/01/19 08:59 Dose: Not Given Documented by: Methylprednisolone (Solu-Medrol) 20 mg IV Q8 [facility] Last Admin: 08/01/19 05:42 Dose: 20 mg Documented by: Nicotine (Nicoderm Cq (Pbkc)) 14 mg TRANSDERM. DAILY [facility] Last Admin: 08/01/19 09:15 Dose: 14 mg Documented by: Nutritional Formula (Lactose Free) (Glucerna Shake) 120 ml PO 4X/DAY [facility] Last Admin: 08/01/19 08:59 Dose: Not Given Documented by: Ondansetron HCl (Zofran) 4 mg IV Q8H PRN PRN PRN Reason: NAUSEA/VOMITING Sodium Chloride () 10 - 40 ml IV UD PRN PRN Reason: SALINE FLUSH Last Admin: 08/01/19 09:24 Dose: 10 ml Documented by: Warfarin Sodium (Coumadin (Pbkc)) 3 mg PO DAILY@1700 [facility] Last Admin: 07/31/19 18:07 Dose: 3 mg Documented by: Medical Necessity - Tobacco Use Smoking Status: Current every day smoker Tobacco Use: Cigarettes Assessment/Plan All Active Problems (Last Reviewed 07/29/19 @ 23:21 by Viktor Engle MD) Sepsis (Acute) Community acquired pneumonia (Acute) Warfarin-induced coagulopathy (Acute) History of non-ST elevation myocardial infarction (NSTEMI) (Resolved 2014) History of coronary artery stent placement (Resolved 01/25/15) H/O coronary artery bypass surgery (Resolved 2007) History of tobacco use (Resolved) 1. Acute hypoxic respiratory failure 2/2 acute CAP - continue levaquin, hi - flow o2. Pulm following. productive cough. continue steroids and lasix. blood cx negative. rapid flu negative. urine antigens neg. Chest CT with right hilar lymphadenopathy versus soft tissue lesion mass with right main bronchial narrowing, consolidation, interstitial prominence, right upper lobe infiltrate, versus cellular infiltrating neoplasm, right lower lobe nodule with spiculation, left upper lobe spiculated lesion, right lower lobe peribronchial thickening and basilar consolidation with small effusion concerning for infiltrate. -WBC elevation suspected 2/2 steroids. 2. Lung nodules on CT - o/p EBUS planned. 3. He likely has underlying COPD and is wheezing as well - solumedrol and duonebs contnued Smoked since age 8. Needs pulm referral. did receive 3L fluid. 4. Chronic systolic CHF and ischemic CM - echo unchanged from prior. Continue lasix at decreased dose. 5. Ventricular mural thrombus - known hx. INR now below 1.8. Restart coumadin lower dose 6. DMt2 - metformin held, SSI. 7. CAD - continue statin, coreg, rafael, aspirin 8. Abnormal LFTs - abd US with no hepatic masses. CT abdomen pending. DVT ppx: stew MERCEDES planning: PTOT. No prior home o2. This patient was seen by Kendall Bowling PA-C under the supervision of Doctor Sheriff.
--- NOTE | 2019-08-01 14:06 | CHAPLAIN ---
patient and bed are out of the room; left a calling card
[2019-08-01] MEDS: Glucerna Shake 120 ML LIQUID PO ×3 (15:03→22:43)
[2019-08-01 17:30] LABS: Bedside Glucose 152 mg/dL (70-110)
[2019-08-01] MEDS: guaiFENesin 1,200 MG Tablet 1200 MG PO (22:40)
[2019-08-01] MEDS: Atorvastatin Calcium 80 MG Tablet PO (22:41)
[2019-08-01 22:46] LABS: Bedside Glucose 148 mg/dL (70-110)
[2019-08-02] VITALS (21 sets, daily range): BP systolic 64–124; BP diastolic 35–72; PULSE 87–118; RESP 18–20; TEMP 36.4–36.9; O2SAT 88–97
[2019-08-02] MEDS: levoFLOXacin 750 MG Tablet PO (05:40)
[2019-08-02] MEDS: 0.9% Saline Lock 10 ML Syringe IV ×2 (05:43→09:46)
--- NOTE | 2019-08-02 07:02 | PN_ITS ---
Patient Problems: Active and Suspected Problems (Last Reviewed 07/29/19 @ 23:21 by Viktor Engle MD) Sepsis (Acute) Community acquired pneumonia (Acute) Warfarin-induced coagulopathy (Acute) Subjective: The patient was seen and examined at the bedside this morning. Events from the last 24 hours have been reviewed. The patient is currently afebrile, hemodynamically stable and maintaining appropriate oxygen saturations on high flow O2. The patient remains on scheduled IV Lasix 20 mg twice daily, along with scheduled bronchodilators and IV steroids. He does report that he feels as if his breathing quality has improved. Objective: The patient's most recent lab work, culture data and imaging studies have all been personally reviewed. Strep and urine Legionella antigens were negative. Rapid influenza screen was negative. CT chest with contrast did reveal a great deal of background emphysematous changes along with what appears to be a right upper lobe airspace opacity. There does appear to be a right-sided perihilar mass with associated mediastinal adenopathy. Incidental note was also made of a spiculated nodule in the lingula, along with a subcentimeter nodule in the right lower lobe. There was airspace consolidation in the right lower lobe. - Physical Exam Vitals/I&O's: Vital Signs Temp Pulse Resp BP Pulse Ox 98.4 F 89 20 H 124/72 H 96 08/02/19 05:32 08/02/19 05:32 08/02/19 05:36 08/02/19 05:32 08/02/19 05:36 Oxygen Flow Rate (L/min) 30 Oxygen Delivery Method Nasal Cannula Weight: 131 lb 6.328 oz Body Mass Index (BMI) 20.0 Intake and Output for Last 24 Hours 07/31/19 08/01/19 08/02/19 23:59 23:59 23:59 Intake Total 780 / 780 Output Total 1150 / 1550 1050 / 1050 Balance -370 / -770 -1050 / -1050 General: Alert, Cooperative, No apparent distress, - - Sitting in bedside recliner. HEENT: Atraumatic, PERRLA, Normocephalic Oral: No Gingival or Mucosal Lesions/ Ulcerations Neck: Supple, No Nodes, Trachea Midline Lungs: No rhonchi, No wheeze, No rales, Diminished, - - No conversational dyspnea or accessory muscle use. Cardiovascular: Regular rate, Regular Rhythm, Normal S1, Normal S2, No murmurs Abdomen: Bowel Sounds Present, Soft, Non Tender Extremities: No cyanosis, No edema, Clubbing Skin: No breakdown Musculoskeletal: No Tenderness to Palpation of Joints or Extremities Lymphatic: No Cervical, Supraclavicular, or Inguinal Adenopathy Neurological: Cranial nerves II-XII grossly intact, Neuro grossly intact Psych/Mental Status: Normal Affect, Appropriate Microbiology Past 72 Hours Labs (Last 48 Hours) 07/29/19 07/31/19 07/31/19 17:15 11:00 16:22 WBC RBC Hgb Hct MCV MCH MCHC RDW Std Deviation RDW Coeff of Herbert Plt Count MPV Immature Gran % (Auto) Neut % (Auto) Lymph % (Auto) Harding % (Auto) Eos % (Auto) Baso % (Auto) Absolute Neuts (auto) Absolute Lymphs (auto) Nucleated RBC % Diff Path Review Reviewed PT INR Sodium Potassium Chloride Carbon Dioxide Anion Gap BUN Creatinine Estim Creat Clear Calc Est GFR (MDRD) Af Amer Est GFR (MDRD) Non-Af BUN/Creatinine Ratio Glucose Calcium Magnesium Total Bilirubin AST ALT Alkaline Phosphatase Total Protein Albumin Globulin Albumin/Globulin Ratio POC Glucose 225 H 143 H 07/31/19 08/01/19 08/01/19 21:43 05:20 05:20 WBC 19.1 H RBC 4.51 L Hgb 12.6 L Hct 38.8 L MCV 86.0 MCH 27.9 MCHC 32.5 RDW Std Deviation 42.2 RDW Coeff of Herbert 13.4 Plt Count 450 MPV 8.8 Immature Gran % (Auto) 1.300 H Neut % (Auto) 89.2 H Lymph % (Auto) 3.6 L Harding % (Auto) 5.7 Eos % (Auto) 0.0 Baso % (Auto) 0.2 Absolute Neuts (auto) 17.1 H Absolute Lymphs (auto) 0.69 L Nucleated RBC % 0 Diff Path Review PT 25.3 H INR 2.3 Sodium Potassium Chloride Carbon Dioxide Anion Gap BUN Creatinine Estim Creat Clear Calc Est GFR (MDRD) Af Amer Est GFR (MDRD) Non-Af BUN/Creatinine Ratio Glucose Calcium Magnesium Total Bilirubin AST ALT Alkaline Phosphatase Total Protein Albumin Globulin Albumin/Globulin Ratio POC Glucose 150 H 08/01/19 08/01/1908/01/19 05:20 06:38 11:24 WBC RBC Hgb Hct MCV MCH MCHC RDW Std Deviation RDW Coeff of Herbert Plt Count MPV Immature Gran % (Auto) Neut % (Auto) Lymph % (Auto) Harding % (Auto) Eos % (Auto) Baso % (Auto) Absolute Neuts (auto) Absolute Lymphs (auto) Nucleated RBC % Diff Path Review PT INR Sodium 138 Potassium 4.0 Chloride 98 Carbon Dioxide 30.0 Anion Gap 10 BUN 32 H Creatinine 0.92 Estim Creat Clear Calc 54.89 Est GFR (MDRD) Af Amer 102 Est GFR (MDRD) Non-Af 84 BUN/Creatinine Ratio 34.7 H Glucose 164 H Calcium 8.8 Magnesium 2.2 Total Bilirubin 0.70 AST 136 H ALT 113 H Alkaline Phosphatase 172 H Total Protein 6.9 Albumin 2.3 L Globulin 4.6 H Albumin/Globulin Ratio 0.5 L POC Glucose 152 H 126 H 08/01/19 08/01/19 08/02/19 17:11 22:39 06:30 WBC RBC Hgb Hct MCV MCH MCHC RDW Std Deviation RDW Coeff of Herbert Plt Count MPV Immature Gran % (Auto) Neut % (Auto) Lymph % (Auto) Harding % (Auto) Eos % (Auto) Baso % (Auto) Absolute Neuts (auto) Absolute Lymphs (auto) Nucleated RBC % Diff Path Review PT INR Sodium 136 Potassium 4.7 Chloride 96 L Carbon Dioxide 32.0 Anion Gap 8 BUN 35 H Creatinine 1.03 Estim Creat Clear Calc 49.02 Est GFR (MDRD) Af Amer 90 Est GFR (MDRD) Non-Af 74 BUN/Creatinine Ratio 34.0 H Glucose 159 H Calcium 9.0 Magnesium Total Bilirubin AST ALT Alkaline Phosphatase Total Protein Albumin Globulin Albumin/Globulin Ratio POC Glucose 152 H 148 H Microbiology 07/29/19 17:25 Blood Culture (Wb) - Right Wrist Blood Culture - Preliminary No growth in 48 hours. 07/29/19 17:15 Blood Culture (Wb) - Anticubital Left Blood Culture - Preliminary No growth in 48 hours. 07/29/19 19:24 Urine, Clean Catch Urine Culture - Final Culture exhibits no growth. Clinical Impression(s) from Imaging Studies Chest X-Ray 07/29/19 17:10 IMPRESSION: Right upper lobe infiltrate. Small right pleural effusion. Electronically Signed: Regulo Ramirez, at 17:36 EDT Tel , Service support , Chest X-Ray 07/30/19 08:36 IMPRESSION: Stable exam. Electronically Signed: Regulo Ramirez, at 13:59 EDT Tel , Service support , Chest X-Ray 07/30/19 13:04 IMPRESSION: Stable exam. Electronically Signed: Regulo Ramirez, at 13:59 EDT Tel , Service support , Chest X-Ray 07/31/19 07:35 IMPRESSION: 1. Mild stable change since 07/30/2019. Decreased infiltrates of the right lower lobe. 2. Persistent right perihilar masslike consolidation and nodule in the left midlung. Neoplasm should be considered. 3. Small right pleural effusion. Electronically Signed: Arnold Gould MD (Brooks) at 12:29 EST , Service support , Chest CT 07/31/19 08:56 IMPRESSION: 1. Right hilar lymphadenopathy versus soft tissue lesion/mass causing right main bronchi narrowing with consolidation and interstitial prominence throughout the right upper lobe most concerning for acute infiltrate with cellular infiltrating neoplasm also not excluded in the appropriate clinical setting. In addition there is right lower lobe small nodule with spiculation (series 4 image 75) with left upper lobe spiculated lesion measuring 1.3 cm (series 4 image 70) concerning for neoplastic process versus secondary infectious process. 1. Right lower lobe peribronchial thickening and basilar consolidation with small effusion also concerning for acute infiltrate. Recommend follow-up imaging to assess for treatment improvement as underlying neoplastic process is not excluded. Electronically Signed: Chao Denny DO at 11:05 EST , Service support , Chest CT 07/31/19 15:12 IMPRESSION: 1. Right upper lobe/perihilar soft tissue mass with right hilar and mediastinal adenopathy worrisome for neoplasm. 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 Component of postobstructive pneumonia/atelectasis possible. Bronchoscopic evaluation and/or biopsy suggested. 2. Suspicious spiculated nodule the lingula, stable short-term follow-up. 3. 9 mm noncalcified nodule in the right lower lobe. 4. Consolidation with air bronchograms in the right lower lobe suspicious for pneumonia. Electronically Signed: Arnold Gould MD (Brooks) at 16:28 EST , Service support , Abdomen Ultrasound 08/01/19 08:03 IMPRESSION: 1. No hepatic masses or biliary dilation. 2. Small right pleural effusion as evident on CT from yesterday. Electronically Signed: Arnold Gould MD (Brooks) at 12:13 EST , Service support , Abdomen/Pelvis CT 08/01/19 10:18 IMPRESSION: 1. No intra-abdominal mass/adenopathy. 2. Atherosclerosis and ectasia of the abdominal aorta. 3. Diverticulosis without evidence of diverticulitis. 4. Prostate calcifications. 5. Potts catheter. 6. Base of the chest unchanged as seen and described on chest CT report from yesterday. Electronically Signed: Arnold Gould MD (Brooks) at 14:10 EST , Service support , Current Medications Acetaminophen (Tylenol) 650 mg PO Q6H PRN PRN PRN Reason: Pain Score 1-3/Temp > 100.7 F Last Admin: 07/30/19 06:16 Dose: 650 mg Documented by: Albuterol Sulfate (Ventolin Aerosols) 2.5 mg INHALATION Q2H PRN PRN PRN Reason: Shortness of Breath/Wheezing Albuterol/Ipratropium (Duoneb) 3 ml INHALATION Q4HWA.RT [facility] Last Admin: 08/01/19 19:00 Dose: Not Given Documented by: Atorvastatin Calcium (Lipitor) 80 mg PO QHS [facility] Last Admin: 08/01/19 22:41 Dose: 80 mg Documented by: Benzonatate (Tessalon Perle) 100 mg PO 4X/DAY PRN PRN PRN Reason: COUGH Bisacodyl (Dulcolax) 5 mg PO DAILY PRN PRN PRN Reason: Constipation Dextrose (D50w Syringe) 0 gm IV X1 PRN; Protocol PRN Reason: Hypoglycemia Folic Acid (Folic Acid) 0.5 mg PO DAILYCM [facility] Last Admin: 08/01/19 08:59 Dose: Not Given Documented by: Furosemide (Lasix) 20 mg IV BIDLX [facility] Last Admin: 08/01/19 17:16 Dose: 20 mg Documented by: Glucagon () 1 mg IM .X1 PRN PRN Reason: Hypoglycemia Guaifenesin (Mucinex) 1,200 mg PO BID [facility] Last Admin: 08/01/19 22:40 Dose: 1,200 mg Documented by: Sodium Chloride () 250 mls @ 15 mls/hr IV .[id number] PRN PRN Reason: Saline Flush Last Infusion: 07/30/19 19:01 Dose: 0 mls/hr Documented by: Insulin Human Lispro (Humalog Kwikpen (Bkc)) 0 unit SC ACHS [facility]; Protocol Last Admin: 08/01/19 22:40 Dose: Not Given Documented by: Levofloxacin (Levaquin Tablet) 750 mg PO DAILY@0600 [facility] Last Admin: 08/02/19 05:40 Dose: 750 mg Documented by: Lisinopril (Zestril) 2.5 mg PO DAILY [facility] Last Admin: 08/01/19 08:59 Dose: Not Given Documented by: Methylprednisolone (Solu-Medrol) 20 mg IV Q8 [facility] Last Admin: 08/02/19 05:40 Dose: 20 mg Documented by: Nicotine (Nicoderm Cq (Pbkc)) 14 mg TRANSDERM. DAILY [facility] Last Admin: 08/01/19 09:15 Dose: 14 mg Documented by: Nutritional Formula (Lactose Free) (Glucerna Shake) 120 ml PO 4X/DAY [facility] Last Admin: 08/01/19 22:43 Dose: 120 ml Documented by: Ondansetron HCl (Zofran) 4 mg IV Q8H PRN PRN PRN Reason: NAUSEA/VOMITING Sodium Chloride () 10 - 40 ml IV UD PRN PRN Reason: SALINE FLUSH Last Admin: 08/02/19 05:43 Dose: 10 ml Documented by: Warfarin Sodium (Coumadin (Pbkc)) 3 mg PO DAILY@1700 [facility] Last Admin: 08/01/19 17:16 Dose: 3 mg Documented by: Medical Necessity - Tobacco Use Smoking Status: Current every day smoker Tobacco Use: Cigarettes Assessment/Plan All Active Problems (Last Reviewed 07/29/19 @ 23:21 by Viktor Engle MD) Sepsis (Acute) Community acquired pneumonia (Acute) Warfarin-induced coagulopathy (Acute) History of non-ST elevation myocardial infarction (NSTEMI) (Resolved 2014) History of coronary artery stent placement (Resolved 01/25/15) H/O coronary artery bypass surgery (Resolved 2007) History of tobacco use (Resolved) RECOMMENDATIONS: 1. Continue to wean supplemental oxygen as tolerated. 2. Continue bronchodilators and antibiotics. 3. Transition from IV steroids to prednisone 40 mg daily. 4. Consider increasing diuretic regimen to improve oxygenation status. 5. Outpatient pulmonary follow-up with bronchoscopic evaluation, if feasible, within 2 weeks of discharge from the hospital. 6. Perform walking oximetry study prior to consideration for discharge. IMPRESSIONS: 1. Acute hypoxemic respiratory failure Likely secondary to presumed obstructive lung disease with exacerbation in the setting of a pulmonary infectious process and possible decompensated heart failure. The patient does appear to be responding to antibiotics and scheduled diuretic therapy. I would recommend continuing scheduled bronchodilators and steroids as well. The IV methylprednisone can likely be transitioned to prednisone 40 mg by mouth. Wean supplemental oxygen as tolerated. The patient will need to be able to maintain appropriate oxygen saturations with ambulation on 6 L/min via nasal cannula or less prior to consideration for discharge. 2. Abnormal chest CT Again, there was evidence of airspace disease along with what appears to be a right-sided perihilar mass and associated adenopathy. Given the patient's extensive smoking history, this of course would be concerning for underlying malignancy. I do agree that the patient will likely require bronchoscopic evaluation, likely in the form of an EBUS procedure. This would need to be accomplished on an outpatient basis. Therefore, I would work towards improving the patient's oxygenation status in hopes that he can be discharged home with outpatient pulmonary follow-up. 3. Decompensated heart failure The patient's echocardiogram did reveal evidence of a depressed ejection fraction to 25%. He is currently on scheduled Lasix, which I would recommend optimizing as tolerated in hopes of improving his oxygenation status. The patient appears to be followed by Dr. Peraza in the cardiology clinic. 4. History of ventricular mural thrombus/diabetes mellitus type 2/coronary artery disease/advanced age Complicates care, management, recovery and prognosis. Patient wishes to be full code. Continue Coumadin as ordered. This note was generated with [employer] dictation software. It may contain incorrect words, spelling, and punctuation that were not noted in checking the note before signing. Code Visit Inpatient E&M: 79747 Subs Hosp L2
[2019-08-02 07:03] LABS: Anion Gap 8 (5-15); BUN 35 mg/dL (7-18); Chloride 96 mmol/L (98-107); Creatinine, Serum 1.03 mg/dL (0.70-1.30); EST Glomerular Filtration Rate 74 mL/min (>60); Est Glom Filt Rate - Afr Amer 90 mL/min (>60); Estimated Creatinine Clearance 49.02 ml/min; Glucose 159 mg/dL (74-106); Potassium 4.7 mmol/L (3.5-5.1); Sodium Level 136 mmol/L (136-145)
[2019-08-02] MEDS: Insulin Lispro 100 UNIT/ML INSULN.PEN SC ×3 (07:07→21:45)
--- NOTE | 2019-08-02 07:11 | RAD_ITS ---
STUDY: X-RAY CHEST REASON FOR EXAM: Male, 79 years old. Hypoxia, pneumonia TECHNIQUE: PA and lateral views of the chest. COMPARISON: 07/31/2019 FINDINGS: Persistent masslike consolidation involving the right upper lobe/perihilar region. Elevation of the right hemidiaphragm continues with decreasing amount of reticular and groundglass opacities in the right lower lobe. Nodular density of the left mid lung is redemonstrated. Small right pleural effusion is suspected. There is a granuloma left lung base. Normal size heart. Sternal wires and mediastinal surgical clips compatible with prior CABG. Surgical clips overlie the right hilum. Normal visualized pulmonary arteries. There is atherosclerotic calcification of the aortic arch with tortuosity. No acute bony process. There is no demonstrated abnormality of the visualized soft tissue structures of the upper abdomen. RAD/Chest PA and Lateral IMPRESSION: 1. Favorable change since 07/31/2019. Decreasing infiltrates of the right lower lobe. 2. Persistent right perihilar masslike consolidation and nodule in the left midlung. Neoplasm should be considered. 3. Small right pleural effusion. Electronically Signed: Arnold Gould MD (Brooks) at 8:13 EST , Service support ,
[2019-08-02] MEDS: Ipratropium/Albuterol Sulfate 3 ML AMPUL.NEB INHALATION ×4 (07:14→19:40)
[2019-08-02 07:20] LABS: Bedside Glucose 159 mg/dL (70-110)
[2019-08-02] MEDS: guaiFENesin 1,200 MG Tablet 1200 MG PO ×2 (09:44→21:44)
[2019-08-02] MEDS: Furosemide 20 MG/2 ML VIAL IV (09:44)
[2019-08-02] MEDS: Lisinopril 2.5 MG Tablet PO (09:44)
[2019-08-02] MEDS: Folic Acid 1 MG Tablet 0.5 MG PO (09:45)
[2019-08-02] MEDS: Glucerna Shake 120 ML LIQUID PO ×4 (09:50→21:44)
--- NOTE | 2019-08-02 11:47 | CASEMGMT ---
RAÚL printed LW/POA forms that were in echart so they can be scanned into the summary tab, and will place forms in paper chart. Pt's daughter Kaia Apple is listed as pt's Healthcare POA. JULIO Chapin
[2019-08-02 12:06] LABS: Bedside Glucose 224 mg/dL (70-110)
--- NOTE | 2019-08-02 13:45 | PN_ITS ---
Patient Problems: Active and Suspected Problems (Last Reviewed 07/29/19 @ 23:21 by Viktor Engle MD) Sepsis (Acute) Community acquired pneumonia (Acute) Warfarin-induced coagulopathy (Acute) Subjective: SOB improved. Weaned to 6lpm o2. Ongoing cough. No fever/chills/NS. No CP. No LE edema. Potts removed today with residual 50 cc. - Physical Exam Vitals/I&O's: Vital Signs Temp Pulse Resp BP Pulse Ox 98.2 F 100 20 H 106/64 93 08/02/19 09:38 08/02/19 13:24 08/02/19 11:01 08/02/19 09:38 08/02/19 09:38 Oxygen Flow Rate (L/min) 6 Oxygen Delivery Method Nasal Cannula Weight: 131 lb 6.328 oz Body Mass Index (BMI) 20.0 Intake and Output for Last 24 Hours 07/31/19 08/01/19 08/02/19 23:59 23:59 23:59 Intake Total 780 / 780 Output Total 1150 / 1550 1250 / 1250 Balance -370 / -770 -1250 / -1250 General: Alert, Oriented x3, Cooperative HEENT: Atraumatic, PERRLA, EOMI, Normocephalic Neck: Supple, No JVD, Negative Carotid Bruits Lungs: Diminished, Wheezes Cardiovascular: Regular rate, No murmurs Abdomen: Bowel Sounds Present, Soft, Non Tender Extremities: No edema, Capillary Refill Less than 3 Seconds Skin: No rashes, No breakdown Musculoskeletal: No Tenderness to Palpation of Joints or Extremities Neurological: Cranial nerves II-XII grossly intact Psych/Mental Status: Normal Affect, Appropriate, Alert and oriented to time, place, person, mood and affect Microbiology Past 72 Hours 07/29/19 17:25 Blood Culture (Wb) - Right Wrist Blood Culture - Preliminary No growth in 48 hours. 07/29/19 17:15 Blood Culture (Wb) - Anticubital Left Blood Culture - Preliminary No growth in 48 hours. 07/29/19 19:24 Urine, Clean Catch Urine Culture - Final Culture exhibits no growth. 07/30/19 15:32 Interface Orders Influenza Types A,B Direct FA (JUAN MIGUEL) - Final 07/29/19 19:24 Urine, Clean Catch Streptococcus pneumoniae Antigen (M - Final 07/29/19 19:24 Urine, Clean Catch Legionella Antigen - Final Laboratory Results 08/01/19 17:11: POC Glucose 152 H 08/01/19 22:39: POC Glucose 148 H 08/02/19 06:30: Sodium 136, Potassium 4.7, Chloride 96 L, Carbon Dioxide 32.0, Anion Gap 8, BUN 35 H, Creatinine 1.03, Estim Creat Clear Calc 49.02, Est GFR (MDRD) Af Amer 90, Est GFR (MDRD) Non-Af 74, BUN/Creatinine Ratio 34.0 H, Glucose 159 H, Calcium 9.0 08/02/19 07:03: POC Glucose 159 H 08/02/19 11:34: POC Glucose 224 H Current Medications Acetaminophen (Tylenol) 650 mg PO Q6H PRN PRN PRN Reason: Pain Score 1-3/Temp > 100.7 F Last Admin: 07/30/19 06:16 Dose: 650 mg Documented by: Albuterol Sulfate (Ventolin Aerosols) 2.5 mg INHALATION Q2H PRN PRN PRN Reason: Shortness of Breath/Wheezing Albuterol/Ipratropium (Duoneb) 3 ml INHALATION Q4HWA.RT [facility] Last Admin: 08/02/19 11:00 Dose: 3 ml Documented by: Atorvastatin Calcium (Lipitor) 80 mg PO QHS [facility] Last Admin: 08/01/19 22:41 Dose: 80 mg Documented by: Benzonatate (Tessalon Perle) 100 mg PO 4X/DAY PRN PRN PRN Reason: COUGH Bisacodyl (Dulcolax) 5 mg PO DAILY PRN PRN PRN Reason: Constipation Dextrose (D50w Syringe) 0 gm IV X1 PRN; Protocol PRN Reason: Hypoglycemia Folic Acid (Folic Acid) 0.5 mg PO DAILYCM [facility] Last Admin: 08/02/19 09:45 Dose: 0.5 mg Documented by: Furosemide (Lasix) 20 mg IV BIDLX [facility] Last Admin: 08/02/19 09:44 Dose: 20 mg Documented by: Glucagon () 1 mg IM .X1 PRN PRN Reason: Hypoglycemia Guaifenesin (Mucinex) 1,200 mg PO BID [facility] Last Admin: 08/02/19 09:44 Dose: 1,200 mg Documented by: Sodium Chloride () 250 mls @ 15 mls/hr IV .[id number] PRN PRN Reason: Saline Flush Last Infusion: 07/30/19 19:01 Dose: 0 mls/hr Documented by: Insulin Human Lispro (Humalog Kwikpen ([facility])) 0 unit SC ACHS [facility]; Protocol Last Admin: 08/02/19 11:35 Dose: 1 u Documented by: Levofloxacin (Levaquin Tablet) 750 mg PO DAILY@0600 [facility] Last Admin: 08/02/19 05:40 Dose: 750 mg Documented by: Lisinopril (Zestril) 2.5 mg PO DAILY [facility] Last Admin: 08/02/19 09:44 Dose: 2.5 mg Documented by: Nicotine (Nicoderm Cq ([facility])) 14 mg TRANSDERM. DAILY [facility] Last Admin: 08/02/19 09:44 Dose: 14 mg Documented by: Nutritional Formula (Lactose Free) (Glucerna Shake) 120 ml PO 4X/DAY [facility] Last Admin: 08/02/19 09:50 Dose: 120 ml Documented by: Ondansetron HCl (Zofran) 4 mg IV Q8H PRN PRN PRN Reason: NAUSEA/VOMITING Prednisone () 40 mg PO DAILY@0800 [facility] Sodium Chloride () 10 - 40 ml IV UD PRN PRN Reason: SALINE FLUSH Last Admin: 08/02/19 09:46 Dose: 10 ml Documented by: Warfarin Sodium (Coumadin ([facility])) 3 mg PO DAILY@1700 [facility] Last Admin: 08/01/19 17:16 Dose: 3 mg Documented by: Medical Necessity - Tobacco Use Smoking Status: Current every day smoker Tobacco Use: Cigarettes Assessment/Plan All Active Problems (Last Reviewed 07/29/19 @ 23:21 by Viktor Engle MD) Sepsis (Acute) Community acquired pneumonia (Acute) Warfarin-induced coagulopathy (Acute) History of non-ST elevation myocardial infarction (NSTEMI) (Resolved 2014) History of coronary artery stent placement (Resolved 01/25/15) H/O coronary artery bypass surgery (Resolved 2007) History of tobacco use (Resolved) 1. Acute hypoxic respiratory failure 2/2 acute CAP - continue levaquin, o2 via nc. Pulm following. productive cough. steroids and lasix to PO today. blood cx negative. rapid flu negative. urine antigens neg. Chest CT with right hilar lymphadenopathy versus soft tissue lesion mass with right main bronchial n arrowing, consolidation, interstitial prominence, right upper lobe infiltrate, versus cellular infiltrating neoplasm, right lower lobe nodule with spiculation, left upper lobe spiculated lesion, right lower lobe peribronchial thickening and basilar consolidation with small effusion concerning for infiltrate. 2. Lung nodules on CT - o/p EBUS planned. 3. He likely has underlying COPD and is wheezing as well - prednisone, duonebs. Smoked since age 8. Needs pulm referral. did receive 3L fluid. 4. Chronic systolic CHF and ischemic CM - echo unchanged from prior. lasix to po. 5. Ventricular mural thrombus - known hx. INR now below 1.8. Restart coumadin lower dose 6. DMt2 - metformin held, SSI. 7. CAD - continue statin, coreg, rafael, aspirin 8. Abnormal LFTs - abd US with no hepatic masses. CT abdomen with no masses. DVT ppx: stew MERCEDES planning: PTOT. No prior home o2. This patient was seen by Kendall Bowling PA-C under the supervision of Doctor Sheriff.
[2019-08-02 14:57] LABS: International Normalized Ratio 2.7; Prothrombin Time (Protime)PT. 28.7 SECONDS (11.7-14.9)
--- NOTE | 2019-08-02 16:14 | CHAPLAIN ---
Type of Pastoral Visit _x__ Initial Visit ___ Follow-up Visit ___ On-call Visit ___ General Patient Visit ___ Spiritual Assessment ___ Family Conference ___ Bereavement ___ Rapid Response ___ Code Blue ___ Other (describe below) Pastoral Care Referral From _x__ Patient ___ Family ___ Nurse ___ Physician ___ Wood Boatbuilder Apprentice ___ Taste Tester ___ Other (describe below) Sacrament/Intervention _x__ Active listening ___ Anointing ___ Muslim ___ Bereavement ___ Communion _x__ Lori exploration ___ _x__ Life review _x__ Prayer ___ Reconciliation ___ Sacrament of Sick _x__ Supportive presence ___ Wedding ___ Other (describe below) Pastoral Comments
[2019-08-02 17:00] LABS: Bedside Glucose 136 mg/dL (70-110)
[2019-08-02] MEDS: Atorvastatin Calcium 80 MG Tablet PO (21:44)
[2019-08-02 22:25] LABS: Bedside Glucose 155 mg/dL (70-110)
[2019-08-03] VITALS (21 sets, daily range): BP systolic 67–108; BP diastolic 39–68; PULSE 92–112; RESP 18–22; TEMP 36.2–36.8; O2SAT 80–96
[2019-08-03 05:28] LABS: International Normalized Ratio 2.7; Prothrombin Time (Protime)PT. 28.7 SECONDS (11.7-14.9)
[2019-08-03 05:32] LABS: Anion Gap 7 (5-15); BUN 46 mg/dL (7-18); BUN/Creat Ratio 41.8 RATIO (10-20); Calcium,Total 8.7 mg/dL (8.5-10.1); Chloride 96 mmol/L (98-107); EST Glomerular Filtration Rate 69 mL/min (>60); Est Glom Filt Rate - Afr Amer 83 mL/min (>60); Glucose 132 mg/dL (74-106); Potassium 4.2 mmol/L (3.5-5.1); Sodium Level 135 mmol/L (136-145)
[2019-08-03 06:21] LABS: Bedside Glucose 151 mg/dL (70-110)
[2019-08-03] MEDS: Insulin Lispro 100 UNIT/ML INSULN.PEN SC ×3 (06:39→22:42)
[2019-08-03] MEDS: levoFLOXacin 750 MG Tablet PO (06:39)
--- NOTE | 2019-08-03 06:57 | NURSING ---
Pt c/o dizziness upon standing while assessing orthostatic vital signs. Pt returned to bed and ambulating SpO2 not tested at this time. Dizziness resolves upon laying in bed. Call light in reach.
[2019-08-03] MEDS: Ipratropium/Albuterol Sulfate 3 ML AMPUL.NEB INHALATION ×4 (07:09→23:28)
--- NOTE | 2019-08-03 08:13 | PCM.PN.PUL ---
Patient Problems: Active and Suspected Problems (Last Reviewed 07/29/19 @ 23:21 by Viktor Engle MD) Sepsis (Acute) Community acquired pneumonia (Acute) Warfarin-induced coagulopathy (Acute) Subjective: The patient was seen and examined at the bedside this morning. Events from the last 24 hours have been reviewed. The patient is currently afebrile, hemodynamically stable and maintaining appropriate oxygen saturations on 1 L/min via nasal cannula. The patient appeared to have orthostatic vital signs when checked this morning. The patient's Lasix was subsequently discontinued. Objective: The patient's most recent lab work, culture data and imaging studies have all been personally reviewed. Strep and urine Legionella antigens were negative. Rapid influenza screen was negative. CT chest with contrast did reveal a great deal of background emphysematous changes along with what appears to be a right upper lobe airspace opacity. There does appear to be a right-sided perihilar mass with associated mediastinal adenopathy. Incidental note was also made of a spiculated nodule in the lingula, along with a subcentimeter nodule in the right lower lobe. There was airspace consolidation in the right lower lobe. - Physical Exam Vitals/I&O's: Vital Signs Temp Pulse Resp BP Pulse Ox 98.2 F 96 18 95/56 L 92 08/03/19 06:42 08/03/19 06:50 08/03/19 06:42 08/03/19 06:50 08/03/19 06:42 Oxygen Flow Rate (L/min) 1 Oxygen Delivery Method Nasal Cannula Weight: 131 lb 6.328 oz Body Mass Index (BMI) 20.0 Orthostatic Vital Signs Start: 08/02/19 20:07 Freq: q24h Status: Active Protocol: Activity Type Activity Date Activity User E-Sign Co-Sign Detail Recorded Client Recorded Date Recorded By Document 08/03/19 06:50 JC [id number] 08/03/19 06:57 JCG 08/03/19 06:50 Orthostatic Vitals Standing -Blood Pressure (90/60-120/80) 67/39 L -Extremity Use Left Arm -Pulse Rate (60-100) 104 H Sitting -Blood Pressure (90/60-120/80) 71/45 L -Extremity Use Left Arm -Pulse Rate (60-100) 102 H Lying -Blood Pressure (90/60-120/80) 95/56 L -Extremity Use Left Arm -Pulse Rate (60-100) 96 Intake and Output for Last 24 Hours 08/01/19 08/02/19 08/03/19 23:59 23:59 23:59 Intake Total 780 / 780 420 / 420 Output Total 1150 / 1550 1450 / 1600 425 / 425 Balance -370 / -770 -1450 / -1280 -5 / -5 General: Alert, Cooperative, No apparent distress HEENT: Atraumatic, PERRLA, Normocephalic Oral: No Gingival or Mucosal Lesions/ Ulcerations Neck: Supple, No Nodes, Trachea Midline Lungs: No rhonchi, No wheeze, No rales, Diminished Cardiovascular: Regular rate, Regular Rhythm, Normal S1, Normal S2, No murmurs Abdomen: Bowel Sounds Present, Soft, Non Tender Extremities: No cyanosis, No edema, Clubbing Skin: No breakdown Musculoskeletal: No Tenderness to Palpation of Joints or Extremities Lymphatic: No Cervical, Supraclavicular, or Inguinal Adenopathy Neurological: Cranial nerves II-XII grossly intact, Neuro grossly intact Psych/Mental Status: Normal Affect, Appropriate Labs (Last 48 Hours) 07/29/19 08/01/19 08/01/19 17:15 11:24 17:11 Diff Path Review Reviewed PT INR Sodium Potassium Chloride Carbon Dioxide Anion Gap BUN Creatinine Estim Creat Clear Calc Est GFR (MDRD) Af Amer Est GFR (MDRD) Non-Af BUN/Creatinine Ratio Glucose Calcium POC Glucose 126 H 152 H 08/01/19 08/02/19 08/02/19 22:39 06:30 07:03 Diff Path Review PT INR Sodium 136 Potassium 4.7 Chloride 96 L Carbon Dioxide 32.0 Anion Gap 8 BUN 35 H Creatinine 1.03 Estim Creat Clear Calc 49.02 Est GFR (MDRD) Af Amer 90 Est GFR (MDRD) Non-Af 74 BUN/Creatinine Ratio 34.0 H Glucose 159 H Calcium 9.0 POC Glucose 148 H 159 H 08/02/19 08/02/19 08/02/19 11:34 14:10 16:45 Diff Path Review PT 28.7 H INR 2.7 Sodium Potassium Chloride Carbon Dioxide Anion Gap BUN Creatinine Estim Creat Clear Calc Est GFR (MDRD) Af Amer Est GFR (MDRD) Non-Af BUN/Creatinine Ratio Glucose Calcium POC Glucose 224 H 136 H 08/02/19 08/03/19 08/03/19 21:42 04:44 04:44 Diff Path Review PT 28.7 H INR 2.7 Sodium 135 L Potassium 4.2 Chloride 96 L Carbon Dioxide 32.0 Anion Gap 7 BUN 46 H Creatinine 1.10 Estim Creat Clear Calc 45.90 Est GFR (MDRD) Af Amer 83 Est GFR (MDRD) Non-Af 69 BUN/Creatinine Ratio 41.8 H Glucose 132 H Calcium 8.7 POC Glucose 155 H 08/03/19 06:12 Diff Path Review PT INR Sodium Potassium Chloride Carbon Dioxide Anion Gap BUN Creatinine Estim Creat Clear Calc Est GFR (MDRD) Af Amer Est GFR (MDRD) Non-Af BUN/Creatinine Ratio Glucose Calcium POC Glucose 151 H Microbiology 08/02/19 09:26 Sputum, Expectorated/Coughed Gram Stain - Final 07/29/19 17:25 Blood Culture (Wb) - Right Wrist Blood Culture - Preliminary No growth in 48 hours. 07/29/19 17:15 Blood Culture (Wb) - Anticubital Left Blood Culture - Preliminary No growth in 48 hours. 07/29/19 19:24 Urine, Clean Catch Urine Culture - Final Culture exhibits no growth. Clinical Impression(s) from Imaging Studies Chest X-Ray 07/29/19 17:10 IMPRESSION: Right upper lobe infiltrate. Small right pleural effusion. Electronically Signed: Regulo Ramirez, at 17:36 EDT Tel , Service support , Chest X-Ray 07/30/19 08:36 IMPRESSION: Stable exam. Electronically Signed: Regulo Ramirez, at 13:59 EDT Tel , Service support , Chest X-Ray 07/30/19 13:04 IMPRESSION: Stable exam. Electronically Signed: Regulo Ramirez, at 13:59 EDT Tel , Service support , Chest X-Ray 07/31/19 07:35 IMPRESSION: 1. Mild stable change since 07/30/2019. Decreased infiltrates of the right lower lobe. 2. Persistent right perihilar masslike consolidation and nodule in the left midlung. Neoplasm should be considered. 3. Small right pleural effusion. Electronically Signed: Arnold Gould MD ([facility]) at 12:29 EST , Service support , Chest CT 07/31/19 08:56 IMPRESSION: 1. Right hilar lymphadenopathy versus soft tissue lesion/mass causing right main bronchi narrowing with consolidation and interstitial prominence throughout the right upper lobe most concerning for acute infiltrate with cellular infiltrating neoplasm also not excluded in the appropriate clinical setting. In addition there is right lower lobe small nodule with spiculation (series 4 image 75) with left upper lobe spiculated lesion measuring 1.3 cm (series 4 image 70) concerning for neoplastic process versus secondary infectious process. 1. Right lower lobe peribronchial thickening and basilar consolidation with small effusion also concerning for acute infiltrate. Recommend follow-up imaging to assess for treatment improvement as underlying neoplastic process is not excluded. Electronically Signed: Chao Denny DO at 11:05 EST , Service support , Chest CT 07/31/19 15:12 IMPRESSION: 1. Right upper lobe/perihilar soft tissue mass with right hilar and mediastinal adenopathy worrisome for neoplasm. 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 Component of postobstructive pneumonia/atelectasis possible. Bronchoscopic evaluation and/or biopsy suggested. 2. Suspicious spiculated nodule the lingula, stable short-term follow-up. 3. 9 mm noncalcified nodule in the right lower lobe. 4. Consolidation with air bronchograms in the right lower lobe suspicious for pneumonia. Electronically Signed: Arnold Gould MD ([facility]) at 16:28 EST , Service support , Abdomen Ultrasound 08/01/19 08:03 IMPRESSION: 1. No hepatic masses or biliary dilation. 2. Small right pleural effusion as evident on CT from yesterday. Electronically Signed: Arnold Gould MD ([facility]) at 12:13 EST , Service support , Abdomen/Pelvis CT 08/01/19 10:18 IMPRESSION: 1. No intra-abdominal mass/adenopathy. 2. Atherosclerosis and ectasia of the abdominal aorta. 3. Diverticulosis without evidence of diverticulitis. 4. Prostate calcifications. 5. Potts catheter. 6. Base of the chest unchanged as seen and described on chest CT report from yesterday. Electronically Signed: Arnold Gould MD ([facility]) at 14:10 EST , Service support , Chest X-Ray 08/02/19 07:11 IMPRESSION: 1. Favorable change since 07/31/2019. Decreasing infiltrates of the right lower lobe. 2. Persistent right perihilar masslike consolidation and nodule in the left midlung. Neoplasm should be considered. 3. Small right pleural effusion. Electronically Signed: Arnold Gould MD ([facility]) at 8:13 EST , Service support , Current Medications Acetaminophen (Tylenol) 650 mg PO Q6H PRN PRN PRN Reason: Pain Score 1-3/Temp > 100.7 F Last Admin: 07/30/19 06:16 Dose: 650 mg Documented by: Albuterol Sulfate (Ventolin Aerosols) 2.5 mg INHALATION Q2H PRN PRN PRN Reason: Shortness of Breath/Wheezing Albuterol/Ipratropium (Duoneb) 3 ml INHALATION Q4HWA.RT [facility] Last Admin: 08/03/19 07:09 Dose: 3 ml Documented by: Atorvastatin Calcium (Lipitor) 80 mg PO QHS [facility] Last Admin: 08/02/19 21:44 Dose: 80 mg Documented by: Benzonatate (Tessalon Perle) 100 mg PO 4X/DAY PRN PRN PRN Reason: COUGH Bisacodyl (Dulcolax) 5 mg PO DAILY PRN PRN PRN Reason: Constipation Folic Acid (Folic Acid) 0.5 mg PO DAILYCM [facility] Last Admin: 08/02/19 09:45 Dose: 0.5 mg Documented by: Guaifenesin (Mucinex) 1,200 mg PO BID [facility] Last Admin: 08/02/19 21:44 Dose: 1,200 mg Documented by: Sodium Chloride () 250 mls @ 15 mls/hr IV .[id number] PRN PRN Reason: Saline Flush Last Infusion: 07/30/19 19:01 Dose: 0 mls/hr Documented by: Insulin Human Lispro (Humalog Kwikpen ([facility])) 0 unit SC [facility]; Protocol Last Admin: 08/03/19 06:39 Dose: 1 u Documented by: Levofloxacin (Levaquin Tablet) 750 mg PO DAILY@0600 [facility] Last Admin: 08/03/19 06:39 Dose: 750 mg Documented by: Lisinopril (Zestril) 2.5 mg PO DAILY [facility] Last Admin: 08/02/19 09:44 Dose: 2.5 mg Documented by: Nicotine (Nicoderm Cq ([facility])) 14 mg TRANSDERM. DAILY [facility] Last Admin: 08/02/19 09:44 Dose: 14 mg Documented by: Nutritional Formula (Lactose Free) (Glucerna Shake) 120 ml PO 4X/DAY [facility] Last Admin: 08/02/19 21:44 Dose: 120 ml Documented by: Ondansetron HCl (Zofran) 4 mg IV Q8H PRN PRN PRN Reason: NAUSEA/VOMITING Prednisone () 40 mg PO DAILY@0800 [facility] Sodium Chloride () 10 - 40 ml IV UD PRN PRN Reason: SALINE FLUSH Last Admin: 08/02/19 09:46 Dose: 10 ml Documented by: Warfarin Sodium (Coumadin ([facility])) 3 mg PO DAILY@1700 [facility] Last Admin: 08/02/19 16:53 Dose: 3 mg Documented by: Medical Necessity - Tobacco Use Smoking Status: Current every day smoker Tobacco Use: Cigarettes Assessment/Plan All Active Problems (Last Reviewed 07/29/19 @ 23:21 by Viktor Engle MD) Sepsis (Acute) Community acquired pneumonia (Acute) Warfarin-induced coagulopathy (Acute) History of non-ST elevation myocardial infarction (NSTEMI) (Resolved 2014) History of coronary artery stent placement (Resolved 01/25/15) H/O coronary artery bypass surgery (Resolved 2007) History of tobacco use (Resolved) RECOMMENDATIONS: 1. Continue to wean supplemental oxygen as tolerated. 2. Continue bronchodilators and antibiotics. Plan to complete a 7-day treatment course of antibiotics. 3. Continue prednisone with plans to taper at discharge. 4. Outpatient pulmonary follow-up with bronchoscopic evaluation, if feasible, within 2 weeks of discharge from the hospital. 5. Perform walking oximetry study prior to consideration for discharge. IMPRESSIONS: 1. Acute hypoxemic respiratory failure Likely secondary to presumed obstructive lung disease with exacerbation in the setting of a pulmonary infectious process and possible decompensated heart failure. The patient responded favorably to the use of antibiotics and diuretics. I would recommend continuing scheduled bronchodilators and steroids as well. Continue to wean supplemental oxygen as tolerated. The patient will need to be able to maintain appropriate oxygen saturations with ambulation on 6 L/min via nasal cannula or less prior to consideration for discharge. Please have the patient follow-up in the pulmonary medicine clinic within 2 weeks of discharge. 2. Abnormal chest CT Again, there was evidence of airspace disease along with what appears to be a right-sided perihilar mass and associated adenopathy. Given the patient's extensive smoking history, this of course would be concerning for underlying malignancy. I do agree that the patient will likely require bronchoscopic evaluation, likely in the form of an EBUS procedure. This would need to be accomplished on an outpatient basis. Therefore, I would work towards improving the patient's oxygenation status in hopes that he can be discharged home with outpatient pulmonary follow-up. 3. Decompensated heart failure The patient's echocardiogram did reveal evidence of a depressed ejection fraction to 25%. The patient appears to be followed by Dr. Peraza in the cardiology clinic. The patient initially responded to IV diuretic therapy, which has since been discontinued. 4. History of ventricular mural thrombus/diabetes mellitus type 2/coronary artery disease/advanced age Complicates care, management, recovery and prognosis. Patient wishes to be full code. Continue Coumadin as ordered. This note was generated with [employer] software. It may contain incorrect words, spelling, and punctuation that were not noted in checking the note before signing. Code Visit Inpatient E&M: 31119 Subs Hosp L2
--- NOTE | 2019-08-03 08:50 | NURSING ---
First O@ check 87% on 1L NC. O2 gradually increased to 4L. Pt encouraged to take deep breaths - O2 sat 90% on 4L NC.
[2019-08-03] MEDS: Glucerna Shake 120 ML LIQUID PO ×4 (09:01→22:46)
[2019-08-03] MEDS: Folic Acid 1 MG Tablet 0.5 MG PO (09:01)
[2019-08-03] MEDS: Lisinopril 2.5 MG Tablet PO (09:02)
[2019-08-03] MEDS: guaiFENesin 1,200 MG Tablet 1200 MG PO ×2 (09:02→22:39)
[2019-08-03] MEDS: predniSONE 20 MG Tablet 40 MG PO (09:59)
[2019-08-03 11:51] LABS: Bedside Glucose 143 mg/dL (70-110)
--- NOTE | 2019-08-03 16:17 | CASEMGMT ---
EMMA RAPHAEL updated that patient will need home oxygen at discharge. EMMA RAPHAEL to discuss oxygen companies with patient and review list of in-network DME companies. Patient would like [employer] for home oxygen. EMMA RAPHAEL also discussed possible HHC and patient is agreeable. Patient given list of HHC companies in-network with insurance. Patient and family to review and give choices. Discharge is planned for tomorrow. EMMA RAPHAEL will continue to follow this patient and plan for a safe discharge.
[2019-08-03 17:56] LABS: Bedside Glucose 218 mg/dL (70-110)
[2019-08-03] MEDS: Ondansetron 4 MG/2 ML Vial IV (18:05)
[2019-08-03] MEDS: 0.9% Saline Lock 10 ML Syringe IV (18:06)
--- NOTE | 2019-08-03 19:11 | PN_ITS ---
Patient Problems: Active and Suspected Problems (Last Reviewed 07/29/19 @ 23:21 by Viktor Engle MD) Sepsis (Acute) Community acquired pneumonia (Acute) Warfarin-induced coagulopathy (Acute) Subjective: Day #6 antibiotics-Levaquin 750 mg p.o. daily All events of the past 24 hours of been reviewed. He remains afebrile. Orthostatic vital signs were positive today and the patient became lightheaded and short of breath with standing. Last night when I left he was maintaining an appropriate oxygen saturation on a 1 L nasal cannula however he is currently requiring a 4 L nasal cannula at rest to keep his oxygen saturation at 90% or above. Denies chest pain, no cough, no nausea, no vomiting. Feels OK lying down, no orthopnea - Physical Exam Vitals/I&O's: Vital Signs Temp Pulse Resp BP Pulse Ox 97.8 F 96 20 H 103/68 90 08/03/19 08:42 08/03/19 15:21 08/03/19 15:21 08/03/19 08:42 08/03/19 15:06 Oxygen Flow Rate (L/min) 2.5 Oxygen Delivery Method Nasal Cannula Weight: 131 lb 6.328 oz Body Mass Index (BMI) 20.0 Orthostatic Vital Signs Start: 08/02/19 20:07 Freq: q24h Status: Active Protocol: Activity Type Activity Date Activity User E-Sign Co-Sign Detail Recorded Client Recorded Date Recorded By Document 08/03/19 06:50 [facility] [id number] 08/03/19 06:57 [facility] [place]/03/[place] 06:50 Orthostatic Vitals Standing -Blood Pressure (90/60-120/80 mm Hg) 67/39 L -Extremity Use Left Arm -Pulse Rate (60-100 beats/min) 104 H Sitting -Blood Pressure (90/60-120/80 mm Hg) 71/45 L -Extremity Use Left Arm -Pulse Rate (60-100 beats/min) 102 H Lying -Blood Pressure (90/60-120/80 mm Hg) 95/56 L -Extremity Use Left Arm -Pulse Rate (60-100 beats/min) 96 Intake and Output for Last 24 Hours 08/01/19 08/02/19 08/03/19 23:59 23:59 23:59 Intake Total 780 / 780 420 / 420 Output Total 1150 / 1550 1450 / 1600 425 / 425 Balance -370 / -770 -1450 / -1280 -5 / -5 General: Alert, Oriented x3, Cooperative, No apparent distress HEENT: Atraumatic Oral: No Gingival or Mucosal Lesions/ Ulcerations, Dry Mucosa Neck: Supple, Trachea Midline Lungs: Clear to auscultation, Diminished Cardiovascular: Regular rate, Regular Rhythm, Normal S1, Normal S2, No Gallop Abdomen: Bowel Sounds Present, Soft, Non Tender, Non-Distended Extremities: No edema Skin: No rashes, No breakdown Neurological: Cranial nerves II-XII grossly intact, Neuro grossly intact Psych/Mental Status: Normal Affect, Appropriate Microbiology Past 72 Hours 08/02/19 09:26 Sputum, Expectorated/Coughed Gram Stain - Final 08/02/19 09:26 Sputum, Expectorated/Coughed Respiratory Culture - Preliminary Appears to be normal respiratory arlene. Further studies to follow. 07/29/19 17:25 Blood Culture (Wb) - Right Wrist Blood Culture - Preliminary No growth in 48 hours. 07/29/19 17:15 Blood Culture (Wb) - Anticubital Left Blood Culture - Preliminary No growth in 48 hours. 07/29/19 19:24 Urine, Clean Catch Urine Culture - Final Culture exhibits no growth. Laboratory Results 08/02/19 21:42: POC Glucose 155 H 08/03/19 04:44: PT 28.7 H, INR 2.7 08/03/19 04:44: Sodium 135 L, Potassium 4.2, Chloride 96 L, Carbon Dioxide 32.0, Anion Gap 7, BUN 46 H, Creatinine 1.10, Estim Creat Clear Calc 45.90, Est GFR (MDRD) Af Amer 83, Est GFR (MDRD) Non-Af 69, BUN/Creatinine Ratio 41.8 H, Glucose 132 H, Calcium 8.7 08/03/19 06:12: POC Glucose 151 H 08/03/19 11:47: POC Glucose 143 H 08/03/19 17:43: POC Glucose 218 H Current Medications Acetaminophen (Tylenol) 650 mg PO Q6H PRN PRN PRN Reason: Pain Score 1-3/Temp > 100.7 F Last Admin: 07/30/19 06:16 Dose: 650 mg Documented by: Albuterol Sulfate (Ventolin Aerosols) 2.5 mg INHALATION Q2H PRN PRN PRN Reason: Shortness of Breath/Wheezing Albuterol/Ipratropium (Duoneb) 3 ml INHALATION Q4HWA.RT [facility] Last Admin: 08/03/19 15:21 Dose: 3 ml Documented by: Atorvastatin Calcium (Lipitor) 80 mg PO QHS [facility] Last Admin: 08/02/19 21:44 Dose: 80 mg Documented by: Benzonatate (Tessalon Perle) 100 mg PO 4X/DAY PRN PRN PRN Reason: COUGH Bisacodyl (Dulcolax) 5 mg PO DAILY PRN PRN PRN Reason: Constipation Folic Acid (Folic Acid) 0.5 mg PO DAILYCM [facility] Last Admin: 08/03/19 09:01 Dose: 0.5 mg Documented by: Guaifenesin (Mucinex) 1,200 mg PO BID [facility] Last Admin: 08/03/19 09:02 Dose: 1,200 mg Documented by: Sodium Chloride () 250 mls @ 15 mls/hr IV .[id number] PRN PRN Reason: Saline Flush Last Infusion: 07/30/19 19:01 Dose: 0 mls/hr Documented by: Influenza Virus Vaccine Quadrival (Flucelvax /Fluzone ) 0.5 ml IM .ONCE ONE Stop: 08/04/19 10:01 Insulin Human Lispro (Humalog Kwikpen (Bkc)) 0 unit SC [facility]; Protocol Last Admin: 08/03/19 17:48 Dose: 1 u Documented by: Levofloxacin (Levaquin Tablet) 750 mg PO DAILY@0600 [facility] Last Admin: 08/03/19 06:39 Dose: 750 mg Documented by: Lisinopril (Zestril) 2.5 mg PO DAILY [facility] Last Admin: 08/03/19 09:02 Dose: 2.5 mg Documented by: Nicotine (Nicoderm Cq (Pbkc)) 14 mg TRANSDERM. DAILY [facility] Last Admin: 08/03/19 09:02 Dose: 14 mg Documented by: Nutritional Formula (Lactose Free) (Glucerna Shake) 120 ml PO 4X/DAY [facility] Last Admin: 08/03/19 17:48 Dose: 120 ml Documented by: Ondansetron HCl (Zofran) 4 mg IV Q8H PRN PRN PRN Reason: NAUSEA/VOMITING Last Admin: 08/03/19 18:05 Dose: 4 mg Documented by: Prednisone () 40 mg PO DAILY@0800 [facility] Last Admin: 08/03/19 09:59 Dose: 40 mg Documented by: Sodium Chloride () 10 - 40 ml IV UD PRN PRN Reason: SALINE FLUSH Last Admin: 08/03/19 18:06 Dose: 10 ml Documented by: Warfarin Sodium (Coumadin (Pbkc)) 3 mg PO DAILY@1700 [facility] Last Admin: 08/03/19 17:48 Dose: 3 mg Documented by: Medical Necessity - Tobacco Use Smoking Status: Current every day smoker Tobacco Use: Cigarettes Assessment/Plan All Active Problems (Last Reviewed 07/29/19 @ 23:21 by Viktor Engle MD) Sepsis (Acute) Community acquired pneumonia (Acute) Warfarin-induced coagulopathy (Acute) History of non-ST elevation myocardial infarction (NSTEMI) (Resolved 2014) History of coronary artery stent placement (Resolved 01/25/15) H/O coronary artery bypass surgery (Resolved 2007) History of tobacco use (Resolved) Impressions 1. R side CAP, possibly post-obstructive. Mass in the RUL and perihilar area on CT scan of the chest.......suspected malignancy with unintentional wt loss. Dr. Gay plans an OP EBUS 2. tobacco dependence - smoking cessation advised and counselling given. 3. acute hypoxic respiratory failure-more likely than not secondary to combined infectious process, mass and exacerbation of underlying presumed COPD. 4. ABN CT chest with mass - suspect malignancy 5. Severe ischemic cardiomyopathy with a 25% ejection fraction 6. Coronary artery disease with history of CABG x5 vessels and PTCA with BMS in 2014 7. Supratherapeutic INR at admission -INR stable at 2.7 today 8. Orthostatic hypotension secondary to overdiuresis-hold Lasix and I encouraged the patient to increase his water intake today. Will repeat orthostatic vital signs in the a.m. and a pulse ox with ambulation to determine his oxygen requirements with exertion. Possible discharge tomorrow. Continue prednisone 40 mg p.o. daily and start taper at discharge Tomorrow will make 7 days of antibiotics so will discontinue at discharge. Code Visit Inpatient E&M: 18250 Subs Hosp L2
[2019-08-03] MEDS: Calcium Carbonate 500 MG Tablet 1000 MG PO (20:16)
[2019-08-03] MEDS: Atorvastatin Calcium 80 MG Tablet PO (22:40)
[2019-08-03 23:21] LABS: Bedside Glucose 152 mg/dL (70-110)
[2019-08-04] VITALS (21 sets, daily range): BP systolic 80–113; BP diastolic 46–83; PULSE 94–110; RESP 13–20; TEMP 36.1–37.1; O2SAT 87–95
[2019-08-04] MEDS: levoFLOXacin 750 MG Tablet PO (05:16)
[2019-08-04 06:40] LABS: Bedside Glucose 100 mg/dL (70-110)
[2019-08-04 06:46] LABS: International Normalized Ratio 2.5; Prothrombin Time (Protime)PT. 27.3 SECONDS (11.7-14.9)
[2019-08-04 06:47] LABS: Anion Gap 7 (5-15); BUN 32 mg/dL (7-18); BUN/Creat Ratio 32.8 RATIO (10-20); Calcium,Total 8.9 mg/dL (8.5-10.1); Chloride 96 mmol/L (98-107); Creatinine, Serum 0.98 mg/dL (0.70-1.30); EST Glomerular Filtration Rate 79 mL/min (>60); Est Glom Filt Rate - Afr Amer 95 mL/min (>60); Estimated Creatinine Clearance 51.52 ml/min; Glucose 115 mg/dL (74-106); Magnesium 2.6 mg/dL (1.6-2.6); Phosphorus 2.7 mg/dL (2.5-4.9); Potassium 4.5 mmol/L (3.5-5.1); Sodium Level 134 mmol/L (136-145)
[2019-08-04] MEDS: Ipratropium/Albuterol Sulfate 3 ML AMPUL.NEB INHALATION ×4 (07:33→18:55)
--- NOTE | 2019-08-04 07:57 | PCM.PN.PUL ---
Patient Problems: Active and Suspected Problems (Last Reviewed 07/29/19 @ 23:21 by Viktor Engle MD) Severe sepsis (Acute) Acute on chronic systolic (congestive) heart failure (Acute) Orthostatic hypotension (Acute) Lung mass (Acute) Acute hypoxemic respiratory failure (Acute) Subjective: The patient was seen and examined at the bedside this morning. Events from the last 24 hours have been reviewed. The patient is currently afebrile, hemodynamically stable and maintaining appropriate oxygen saturations on 4 L/min via nasal cannula. Objective: The patient's most recent lab work, culture data and imaging studies have all been personally reviewed. Strep and urine Legionella antigens were negative. Rapid influenza screen was negative. CT chest with contrast did reveal a great deal of background emphysematous changes along with what appears to be a right upper lobe airspace opacity. There does appear to be a right-sided perihilar mass with associated mediastinal adenopathy. Incidental note was also made of a spiculated nodule in the lingula, along with a subcentimeter nodule in the right lower lobe. There was airspace consolidation in the right lower lobe. - Physical Exam Vitals/I&O's: Vital Signs Temp Pulse Resp BP Pulse Ox 97 F L 95 20 H 95/78 94 08/04/19 05:32 08/04/19 07:35 08/04/19 05:32 08/04/19 05:32 08/04/19 05:32 Oxygen Flow Rate (L/min) 4 Oxygen Delivery Method Nasal Cannula Weight: 131 lb 6.328 oz Body Mass Index (BMI) 20.0 Orthostatic Vital Signs Start: 08/02/19 20:07 Freq: q24h Status: Active Protocol: Activity Type Activity Date Activity User E-Sign Co-Sign Detail Recorded Client Recorded Date Recorded By Document 08/04/19 05:31 [facility] [id number] 08/04/19 05:32 TLM 08/04/19 05:31 Orthostatic Vitals Standing -Blood Pressure (90/60-120/80) 97/48 L -Extremity Use Left Arm -Pulse Rate (60-100) 107 H Sitting -Blood Pressure (90/60-120/80) 113/59 L -Extremity Use Left Arm -Pulse Rate (60-100) 100 Lying -Blood Pressure (90/60-120/80) 95/78 -Extremity Use Left Arm -Pulse Rate (60-100) 100 Intake and Output for Last 24 Hours 08/02/19 08/03/19 08/04/19 23:59 23:59 23:59 Intake Total 900 / 900 Output Total 1450 / 1600 575 / 575 500 / 500 Balance -1450 / -1280 325 / 325 -500 / -500 General: Alert, No apparent distress HEENT: Atraumatic, Normocephalic Oral: No Gingival or Mucosal Lesions/ Ulcerations Neck: Supple, No Nodes, Trachea Midline Lungs: No rhonchi, No wheeze, No rales, Diminished Cardiovascular: Regular rate, Regular Rhythm, Normal S1, Normal S2, No murmurs Abdomen: Bowel Sounds Present, Soft, Non Tender Extremities: No cyanosis, No edema, Clubbing Skin: No breakdown Musculoskeletal: No Tenderness to Palpation of Joints or Extremities Lymphatic: No Cervical, Supraclavicular, or Inguinal Adenopathy Neurological: Cranial nerves II-XII grossly intact, Neuro grossly intact Psych/Mental Status: Normal Affect, Appropriate Labs (Last 48 Hours) 08/02/19 08/02/19 08/02/19 11:34 14:10 16:45 PT 28.7 H INR 2.7 Sodium Potassium Chloride Carbon Dioxide Anion Gap BUN Creatinine Estim Creat Clear Calc Est GFR (MDRD) Af Amer Est GFR (MDRD) Non-Af BUN/Creatinine Ratio Glucose Calcium Phosphorus Magnesium POC Glucose 224 H 136 H 08/02/19 08/03/19 08/03/19 21:42 04:44 04:44 PT 28.7 H INR 2.7 Sodium 135 L Potassium 4.2 Chloride 96 L Carbon Dioxide 32.0 Anion Gap 7 BUN 46 H Creatinine 1.10 Estim Creat Clear Calc 45.90 Est GFR (MDRD) Af Amer 83 Est GFR (MDRD) Non-Af 69 BUN/Creatinine Ratio 41.8 H Glucose 132 H Calcium 8.7 Phosphorus Magnesium POC Glucose 155 H 08/03/19 08/03/19 08/03/19 06:12 11:47 17:43 PT INR Sodium Potassium Chloride Carbon Dioxide Anion Gap BUN Creatinine Estim Creat Clear Calc Est GFR (MDRD) Af Amer Est GFR (MDRD) Non-Af BUN/Creatinine Ratio Glucose Calcium Phosphorus Magnesium POC Glucose 151 H 143 H 218 H 1108/04/19 08/04/19 22:42 06:00 06:00 PT 27.3 H INR 2.5 Sodium 134 L Potassium 4.5 Chloride 96 L Carbon Dioxide 31.0 Anion Gap 7 BUN 32 H Creatinine 0.98 Estim Creat Clear Calc 51.52 Est GFR (MDRD) Af Amer 95 Est GFR (MDRD) Non-Af 79 BUN/Creatinine Ratio 32.8 H Glucose 115 H Calcium 8.9 Phosphorus 2.7 Magnesium 2.6 POC Glucose 152 H 08/04/19 06:35 PT INR Sodium Potassium Chloride Carbon Dioxide Anion Gap BUN Creatinine Estim Creat Clear Calc Est GFR (MDRD) Af Amer Est GFR (MDRD) Non-Af BUN/Creatinine Ratio Glucose Calcium Phosphorus Magnesium POC Glucose 100 Microbiology 07/29/19 17:15 Blood Culture (Wb) - Anticubital Left Blood Culture - Final No growth in 5 days. 07/29/19 17:25 Blood Culture (Wb) - Right Wrist Blood Culture - Final No growth in 5 days. 08/02/19 09:26 Sputum, Expectorated/Coughed Gram Stain - Final 08/02/19 09:26 Sputum, Expectorated/Coughed Respiratory Culture - Preliminary Appears to be normal respiratory arlene. Further studies to follow. Clinical Impression(s) from Imaging Studies Chest X-Ray 07/29/19 17:10 IMPRESSION: Right upper lobe infiltrate. Small right pleural effusion. Electronically Signed: Regulo Ramirez, at 17:36 EDT Tel , Service support , Chest X-Ray 07/30/19 08:36 IMPRESSION: Stable exam. Electronically Signed: Regulo Ramirez, at 13:59 EDT Tel , Service support , Chest X-Ray 07/30/19 13:04 IMPRESSION: Stable exam. Electronically Signed: Regulo Ramirez, at 13:59 EDT Tel , Service support , Chest X-Ray 07/31/19 07:35 IMPRESSION: 1. Mild stable change since 07/30/2019. Decreased infiltrates of the right lower lobe. 2. Persistent right perihilar masslike consolidation and nodule in the left midlung. Neoplasm should be considered. 3. Small right pleural effusion. Electronically Signed: Arnold Gould MD (Brooks) at 12:29 EST , Service support , Chest CT 07/31/19 08:56 IMPRESSION: 1. Right hilar lymphadenopathy versus soft tissue lesion/mass causing right main bronchi narrowing with consolidation and interstitial prominence throughout the right upper lobe most concerning for acute infiltrate with cellular infiltrating neoplasm also not excluded in the appropriate clinical setting. In addition there is right lower lobe small nodule with spiculation (series 4 image 75) with left upper lobe spiculated lesion measuring 1.3 cm (series 4 image 70) concerning for neoplastic process versus secondary infectious process. 1. Right lower lobe peribronchial thickening and basilar consolidation with small effusion also concerning for acute infiltrate. Recommend follow-up imaging to assess for treatment improvement as underlying neoplastic process is not excluded. Electronically Signed: Chao Denny DO at 11:05 EST , Service support , Chest CT 07/31/19 15:12 IMPRESSION: 1. Right upper lobe/perihilar soft tissue mass with right hilar and mediastinal adenopathy worrisome for neoplasm. 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 Component of postobstructive pneumonia/atelectasis possible. Bronchoscopic evaluation and/or biopsy suggested. 2. Suspicious spiculated nodule the lingula, stable short-term follow-up. 3. 9 mm noncalcified nodule in the right lower lobe. 4. Consolidation with air bronchograms in the right lower lobe suspicious for pneumonia. Electronically Signed: Arnold Gould MD ([place]oks) at 16:28 EST , Service support , Abdomen Ultrasound 08/01/19 08:03 IMPRESSION: 1. No hepatic masses or biliary dilation. 2. Small right pleural effusion as evident on CT from yesterday. Electronically Signed: Arnold Gould MD (Brooks) at 12:13 EST , Service support , Abdomen/Pelvis CT 08/01/19 10:18 IMPRESSION: 1. No intra-abdominal mass/adenopathy. 2. Atherosclerosis and ectasia of the abdominal aorta. 3. Diverticulosis without evidence of diverticulitis. 4. Prostate calcifications. 5. Potts catheter. 6. Base of the chest unchanged as seen and described on chest CT report from yesterday. Electronically Signed: Arnold Gould MD ([place]) at 14:10 EST , Service support , Chest X-Ray 08/02/19 07:11 IMPRESSION: 1. Favorable change since 07/31/2019. Decreasing infiltrates of the right lower lobe. 2. Persistent right perihilar masslike consolidation and nodule in the left midlung. Neoplasm should be considered. 3. Small right pleural effusion. Electronically Signed: Arnold Gould MD ([place]) at 8:13 EST , Service support , Current Medications Acetaminophen (Tylenol) 650 mg PO Q6H PRN PRN PRN Reason: Pain Score 1-3/Temp > 100.7 F Last Admin: 07/30/19 06:16 Dose: 650 mg Documented by: Albuterol Sulfate (Ventolin Aerosols) 2.5 mg INHALATION Q2H PRN PRN PRN Reason: Shortness of Breath/Wheezing Albuterol/Ipratropium (Duoneb) 3 ml INHALATION Q4HWA.RT [facility] Last Admin: 08/04/19 07:33 Dose: 3 ml Documented by: Atorvastatin Calcium (Lipitor) 80 mg PO QHS [facility] Last Admin: 08/03/19 22:40 Dose: 80 mg Documented by: Benzonatate (Tessalon Perle) 100 mg PO 4X/DAY PRN PRN PRN Reason: COUGH Bisacodyl (Dulcolax) 5 mg PO DAILY PRN PRN PRN Reason: Constipation Calcium Carbonate (Tums) 1,000 mg PO Q6H PRN PRN PRN Reason: HEARTBURN Last Admin: 08/03/19 20:16 Dose: 1,000 mg Documented by: Folic Acid (Folic Acid) 0.5 mg PO DAILYCM [facility] Last Admin: 08/03/19 09:01 Dose: 0.5 mg Documented by: Guaifenesin (Mucinex) 1,200 mg PO BID [facility] Last Admin: 08/03/19 22:39 Dose: 1,200 mg Documented by: Sodium Chloride () 250 mls @ 15 mls/hr IV .[id number] PRN PRN Reason: Saline Flush Last Infusion: 08/03/19 19:00 Dose: Infused Documented by: Influenza Virus Vaccine Quadrival (Flucelvax /Fluzone ) 0.5 ml IM .ONCE ONE Stop: 08/04/19 10:01 Insulin Human Lispro (Humalog Kwikpen (Bkc)) 0 unit [facility]; Protocol Last Admin: 08/04/19 06:38 Dose: Not Given Documented by: Levofloxacin (Levaquin Tablet) 750 mg PO DAILY@0600 [facility] Last Admin: 08/04/19 05:16 Dose: 750 mg Documented by: Lisinopril (Zestril) 2.5 mg PO DAILY [facility] Last Admin: 08/03/19 09:02 Dose: 2.5 mg Documented by: Nicotine (Nicoderm Cq (Pbkc)) 14 mg TRANSDERM. DAILY [facility] Last Admin: 08/03/19 09:02 Dose: 14 mg Documented by: Nutritional Formula (Lactose Free) (Glucerna Shake) 120 ml PO 4X/DAY [facility] Last Admin: 08/03/19 22:46 Dose: 120 ml Documented by: Ondansetron HCl (Zofran) 4 mg IV Q8H PRN PRN PRN Reason: NAUSEA/VOMITING Last Admin: 08/03/19 18:05 Dose: 4 mg Documented by: Prednisone () 40 mg PO DAILY@0800 [facility] Last Admin: 08/03/19 09:59 Dose: 40 mg Documented by: Sodium Chloride () 10 - 40 ml IV UD PRN PRN Reason: SALINE FLUSH Last Admin: 08/03/19 18:06 Dose: 10 ml Documented by: Warfarin Sodium (Coumadin (Pbkc)) 3 mg PO DAILY@1700 [facility] Last Admin: 08/03/19 17:48 Dose: 3 mg Documented by: Medical Necessity - Tobacco Use Smoking Status: Current every day smoker Tobacco Use: Cigarettes Assessment/Plan All Active Problems (Last Reviewed 07/29/19 @ 23:21 by Viktor Engle MD) Severe sepsis (Acute) Acute on chronic systolic (congestive) heart failure (Acute) Orthostatic hypotension (Acute) Lung mass (Acute) Acute hypoxemic respiratory failure (Acute) Community acquired pneumonia (Acute) Warfarin-induced coagulopathy (Acute) History of non-ST elevation myocardial infarction (NSTEMI) (Resolved 2014) History of coronary artery stent placement (Resolved 01/25/15) H/O coronary artery bypass surgery (Resolved 2007) History of tobacco use (Resolved) RECOMMENDATIONS: 1. Continue to wean supplemental oxygen as tolerated. 2. Continue bronchodilators and antibiotics. Plan to complete a 7-day treatment course of antibiotics. 3. Continue prednisone with plans to taper at discharge. 4. Outpatient pulmonary follow-up with bronchoscopic evaluation, if feasible, within 2 weeks of discharge from the hospital. 5. Perform walking oximetry study prior to consideration for discharge. IMPRESSIONS: 1. Acute hypoxemic respiratory failure Likely secondary to presumed obstructive lung disease with exacerbation in the setting of a pulmonary infectious process and possible decompensated heart failure. The patient responded favorably to the use of antibiotics and diuretics. I would recommend continuing scheduled bronchodilators and steroids as well. Continue to wean supplemental oxygen as tolerated. The patient will need to be able to maintain appropriate oxygen saturations with ambulation on 6 L/min via nasal cannula or less prior to consideration for discharge. Please have the patient follow-up in the pulmonary medicine clinic within 2 weeks of discharge. 2. Abnormal chest CT Again, there was evidence of airspace disease along with what appears to be a right-sided perihilar mass and associated adenopathy. Given the patient's extensive smoking history, this of course would be concerning for underlying malignancy. I do agree that the patient will likely require bronchoscopic evaluation, likely in the form of an EBUS procedure. This would need to be accomplished on an outpatient basis. Therefore, I would work towards improving the patient's oxygenation status in hopes that he can be discharged home with outpatient pulmonary follow-up. 3. Decompensated heart failure The patient's echocardiogram did reveal evidence of a depressed ejection fraction to 25%. The patient appears to be followed by Dr. Peraza in the cardiology clinic. The patient initially responded to IV diuretic therapy, which has since been discontinued. 4. History of ventricular mural thrombus/diabetes mellitus type 2/coronary artery disease/advanced age Complicates care, management, recovery and prognosis. Patient wishes to be full code. Continue Coumadin as ordered. This note was generated with [email or web address] dictation software. It may contain incorrect words, spelling, and punctuation that were not noted in checking the note before signing. Code Visit Inpatient E&M: 78862 Subs Hosp L2
[2019-08-04] MEDS: guaiFENesin 1,200 MG Tablet 1200 MG PO (08:14)
[2019-08-04] MEDS: Glucerna Shake 120 ML LIQUID PO ×2 (08:14→13:11)
[2019-08-04] MEDS: Lisinopril 2.5 MG Tablet PO (08:14)
[2019-08-04] MEDS: Folic Acid 1 MG Tablet 0.5 MG PO (08:15)
[2019-08-04] MEDS: predniSONE 20 MG Tablet 40 MG PO (08:15)
[2019-08-04] MEDS: Calcium Carbonate 500 MG Tablet 1000 MG PO (10:19)
--- NOTE | 2019-08-04 11:25 | NURSING ---
Patient's room air oxygen saturation at rest was 90%. When ambulating on room air, oxygen saturation dropped to 87%. 4L oxygen applied while ambulating and patient was 89%. Increased oxygen flow to 6L nasal cannula and patient's oxygen saturation increased to 92%.
--- NOTE | 2019-08-04 12:30 | CASEMGMT ---
EMMA RAPHAEL notified that patient will need home oxygen and nebulizer at discharge. EMMA RAPHAEL received script. RN CM in to discuss home oxygen and nebulizer need at discharge. Patient prefers [facility] from list provided. EMMA RAPHAEL also discussed HHC with patient. After reviewing list, patient would like [facility] for HHC. EMMA RAPHAEL sent referral to [facility] for HHC and they are able to accept patient. EMMA RAPHAEL sent referral to [employer] for home oxygen and nebulizer and arranged for concentrator and nebulizer to be delivered to patient's home between [id number] prior to discharge. Portable tank to be delivered to hospital prior to discharge. EMMA RAPHAEL updated patient and daughter regarding oxygen setup and acceptance to [facility]. Patient and daughter voiced understanding and had no further questions at this time.
[2019-08-04] MEDS: Insulin Lispro 100 UNIT/ML INSULN.PEN SC (16:47)
[2019-08-04 16:56] LABS: Bedside Glucose 176 mg/dL (70-110)
--- NOTE | 2019-08-04 17:41 | DCINST_ITS ---
- Discharge Diagnoses Current Active Problems: Current Active and Chronic Problems (Last Reviewed 07/29/19 @ 23:21 by Viktor Engle MD) Sepsis (Acute) Community acquired pneumonia (Acute) Warfarin-induced coagulopathy (Acute) You will use the following diet at home:: Other - carb controlled diet, low salt Your food should be the consistency of: Regular Your liquids should be the consistency of: Regular/Thin Discharge Activity: - - Avoid exposure to any strong smells such as bleach, cleaning products, strong colognes or perfumes, paint fumes and smoke of any kind. Avoid sudden exposure to cold air because this can cause bronchospasm. You may want to cover your mouth when you go outside in the winter. Avoid exposure to anyone who is sick with a cough or sore throat. Lifting Restrictions: 5 lbs Call your doctor if you observe: Fever of 101 or Higher, Shortness of breath, Dizziness, Fainting spells, Swelling in the ankles, Chest pain, - - coughing up blood, blood per rectum, blood noses, bleeding from the gums Additional Instructions: The INR is stable at 2.5 - 2.7. It is stable and it should be between 2-3. You should have the INR rechecked in 5-7 days. You finished 7 days of antibiotics so you do not need any antibiotics at discharge. Allergies/Adverse Reactions: Allergies No Known Allergies Allergy (Verified 07/29/19 16:44) Medications to take at Discharge Aspirin E.C. [Ecotrin] 81 mg PO DAILY@0800 01/24/15 metFORMIN HCl [Glucophage] 500 mg PO DAILY 01/24/15 atorvastatin 80 mg tablet 80 mg PO QHS 02/23/19 folic acid 400 mcg tablet 0.4 mg PO DAILY 30 Days #30 tab 02/23/19 lisinopril 2.5 mg tablet 2.5 mg PO DAILY 02/23/19 warfarin 3 mg tablet 3 mg PO DAILY 02/23/19 Albuterol Sulfate [Ventolin Hfa] 2 puff IH Q6H PRN PRN 07/29/19 Guaifenesin [Mucinex] 1,200 mg PO BID #20 tab 08/04/19 Ipratropium/Albuterol Sulfate [Duoneb] 3 ml INHALATION Q4HWA.RT #120 ampul.neb 08/04/19 Lisinopril [Zestril] 2.5 mg PO DAILY #30 tab 08/04/19 Nicotine [Nicoderm] 14 mg TRANSDERM. DAILY #28 patch 08/04/19 Prednisone 10 mg PO UD #30 tab 08/04/19 The following prescriptions were given: Ipratropium/Albuterol Sulfate [Duoneb] 3 ml INHALATION Q4HWA.RT #120 ampul.neb Transmission Status: Pending to [facility]30 Guaifenesin [Mucinex] 1,200 mg PO BID #20 tab Transmission Status: Pending to [facility] #30 Nicotine [Nicoderm] 14 mg TRANSDERM. DAILY #28 patch Transmission Status: Pending to [facility]30 Prednisone 10 mg PO UD #30 tab Prescription Printed Lisinopril [Zestril] 2.5 mg PO DAILY #30 tab Transmission Status: Pending to [facility]30 Primary Care Physician: Melvin Bhakta MD [Primary Care Provider] - Please follow up with your Primary Care Physician in: 5-7 days Test Results: Test results from this visit will be discussed in further detail at your follow- up appointment, if applicable. Please Follow Up With: Mack Gay DO When: within 2 weeks to get EBUS scheduled Proposed Discharge Date: 08/04/19
--- NOTE | 2019-08-04 17:57 | DS.PCM_ITS ---
Discharge Date and Diagnosis Date of Admission: 07/29/19 Date of Discharge: 08/04/19 - Primary Discharge Diagnosis Active and Suspected Problems (Last Reviewed 07/29/19 @ 23:21 by Viktor Engle MD) Severe sepsis secondary to community-acquired pneumonia Community acquired pneumonia (Acute) Acute hypoxemic respiratory failure (Acute) Acute on chronic systolic (congestive) heart failure (Acute) Orthostatic hypotension (Acute) Lung mass (Acute) Warfarin-induced coagulopathy (Acute) - Secondary Discharge Diagnosis Chronic Problems (Last Reviewed 07/29/19 @ 23:21 by Viktor Engle MD) Diabetes mellitus type 2 in nonobese (Chronic) Nicotine dependence (Chronic) Chronic systolic (congestive) heart failure (Chronic) - 25% EF Old myocardial infarction (Chronic) LV (left ventricular) mural thrombus following FL (Chronic) Ischemic cardiomyopathy (Chronic) Atherosclerosis of coronary artery without angina pectoris (Chronic) PCI-RYANNE-DRIVER/REFUSE COLLECTOR Prox LCx w/ 2.5 x 12 mm Resolute Integrity Stent 01/25/2015; CABG x 5 GONCALVES-LAD, Sequential SVG-OM1, OM2,SVG-D1, SVG-RPDA 2007 Essential (primary) hypertension (Chronic) Hyperlipidemia (Chronic) Chronic anticoagulation with warfarin Severe malnutrition Hospital Course and Treatment Imaging Results: Clinical Impression(s) from Imaging Studies Chest X-Ray 07/29/19 17:10 IMPRESSION: Right upper lobe infiltrate. Small right pleural effusion. Electronically Signed: Regulo Ramirez, at 17:36 EDT Tel , Service support , Chest X-Ray 07/30/19 08:36 IMPRESSION: Stable exam. Electronically Signed: Regulo Ramirez, at 13:59 EDT Tel , Service support , Chest X-Ray 07/30/19 13:04 IMPRESSION: Stable exam. Electronically Signed: Regulo Ramirez, at 13:59 EDT Tel , Service support , Chest X-Ray 07/31/19 07:35 IMPRESSION: 1. Mild stable change since 07/30/2019. Decreased infiltrates of the right lower lobe. 2. Persistent right perihilar masslike consolidation and nodule in the left midlung. Neoplasm should be considered. 3. Small right pleural effusion. Electronically Signed: Arnold Gould MD (Brooks) at 12:29 EST , Service support , Chest CT 07/31/19 08:56 IMPRESSION: 1. Right hilar lymphadenopathy versus soft tissue lesion/mass causing right main bronchi narrowing with consolidation and interstitial prominence throughout the right upper lobe most concerning for acute infiltrate with cellular infiltrating neoplasm also not excluded in the appropriate clinical setting. In addition there is right lower lobe small nodule with spiculation (series 4 image 75) with left upper lobe spiculated lesion measuring 1.3 cm (series 4 image 70) concerning for neoplastic process versus secondary infectious process. 1. Right lower lobe peribronchial thickening and basilar consolidation with small effusion also concerning for acute infiltrate. Recommend follow-up imaging to assess for treatment improvement as underlying neoplastic process is not excluded. Electronically Signed: Chao Denny DO at 11:05 EST , Service support , Chest CT 07/31/19 15:12 IMPRESSION: 1. Right upper lobe/perihilar soft tissue mass with right hilar and mediastinal adenopathy worrisome for neoplasm. 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 Component of postobstructive pneumonia/atelectasis possible. Bronchoscopic evaluation and/or biopsy suggested. 2. Suspicious spiculated nodule the lingula, stable short-term follow-up. 3. 9 mm noncalcified nodule in the right lower lobe. 4. Consolidation with air bronchograms in the right lower lobe suspicious for pneumonia. Electronically Signed: Arnold Gould MD (Brooks) at 16:28 EST , Service support , Abdomen Ultrasound 08/01/19 08:03 IMPRESSION: 1. No hepatic masses or biliary dilation. 2. Small right pleural effusion as evident on CT from yesterday. Electronically Signed: Arnold Gould MD (Brooks) at 12:13 EST , Service support , Abdomen/Pelvis CT 08/01/19 10:18 IMPRESSION: 1. No intra-abdominal mass/adenopathy. 2. Atherosclerosis and ectasia of the abdominal aorta. 3. Diverticulosis without evidence of diverticulitis. 4. Prostate calcifications. 5. Potts catheter. 6. Base of the chest unchanged as seen and described on chest CT report from yesterday. Electronically Signed: Arnold Gould MD (Brooks) at 14:10 EST , Service support , Chest X-Ray 08/02/19 07:11 IMPRESSION: 1. Favorable change since 07/31/2019. Decreasing infiltrates of the right lower lobe. 2. Persistent right perihilar masslike consolidation and nodule in the left midlung. Neoplasm should be considered. 3. Small right pleural effusion. Electronically Signed: Arnold Gould MD (Brooks) at 8:13 EST , Service support , Laboratory Results - last 24 hr 08/03/19 08/04/19 08/04/19 22:42 06:00 06:00 PT 27.3 H INR 2.5 Sodium 134 L Potassium 4.5 Chloride 96 L Carbon Dioxide 31.0 Anion Gap 7 BUN 32 H Creatinine 0.98 Estim Creat Clear Calc 51.52 Est GFR (MDRD) Af Amer 95 Est GFR (MDRD) Non-Af 79 BUN/Creatinine Ratio 32.8 H Glucose 115 H Calcium 8.9 Phosphorus 2.7 Magnesium 2.6 POC Glucose 152 H 08/04/19 08/04/19 06:35 16:45 PT INR Sodium Potassium Chloride Carbon Dioxide Anion Gap BUN Creatinine Estim Creat Clear Calc Est GFR (MDRD) Af Amer Est GFR (MDRD) Non-Af BUN/Creatinine Ratio Glucose Calcium Phosphorus Magnesium POC Glucose 100 176 H Microbiology 08/02/19 09:26 Sputum, Expectorated/Coughed Gram Stain - Final 08/02/19 09:26 Sputum, Expectorated/Coughed Respiratory Culture - Final Yeast, not Lyndsay albicans 07/29/19 17:15 Blood Culture (Wb) - Anticubital Left Blood Culture - Final No growth in 5 days. 07/29/19 17:25 Blood Culture (Wb) - Right Wrist Blood Culture - Final No growth in 5 days. 07/29/19 19:24 Urine, Clean Catch Urine Culture - Final Culture exhibits no growth. 07/30/19 15:32 Interface Orders Influenza Types A,B Direct FA (JUAN MIGUEL) - Final 07/29/19 19:24 Urine, Clean Catch Streptococcus pneumoniae Antigen (M - Final 07/29/19 19:24 Urine, Clean Catch Legionella Antigen - Final Dr. Mack Gay-pulmonary medicine Operations: None Procedures: 2-D Echocardiogram - Interpretation Summary The study was technically difficult. Contrast injection was performed. Moderately dilated left ventricle. Severe segmental systolic dysfunction (see wall motion). The estimated ejection fraction is 25 %. The left atrium is mildly enlarged. Mild (1+) mitral valve insufficiency. Trivial tricuspid valve insufficiency. Mild focal aortic valve calcification. Unable to estimate RV systolic pressure/pulmonary artery pressure due to technically difficult study. Diastolic function is indeterminate. Comment: Based upon the 2D echocardiographic and contrast enhanced images obtained a calcified left ventricular apical thrombus cannot necessarily be excluded. Summary of Care Provided: The patient is a 79-year-old male with a past medical history of diabetes mellitus type 2, coronary artery disease with history of CABG and stents, ischemic cardiomyopathy, left ventricular mural thrombus, chronic anticoagulation with warfarin, hypertension, COPD and hyperlipidemia who presented to the emergency department at [facility] on 07/29/2019 complaining of chest congestion associated with a cough productive of yellow sputum and shortness of breath. Vital signs in the emergency department were temperature 97.9, pulse rate 81, respiratory rate 19, blood pressure 95/58 and pulse ox of 91 to 92% on room air. White blood cell count was elevated at 12.0 with a left shift. Hemoglobin was 12.2 and the platelet count was 303,000. INR was greater than 17.5 and the PTT was 153.9. Sodium was mildly decreased at 135 and the BUN was 29 with a creatinine of 1.29. Lactic acid was 1.8. AST was 54 and alkaline phosphatase was mildly increased at 160. Troponin was less than 0.015. UA had 0-5 WBCs and 10-25 hyaline casts. Chest x-ray was reported as having a right upper lobe infiltrate and a small right pleural effusion. He was admitted to the hospital with a diagnosis and supratherapeutic INR. Warfarin was held. He was started on Unasyn and doxycycline in the ED and this was continued at admission. He was given a dose of Vitamin K in the ED. Consultation was ordered with pulmonary medicine and they recommended Lasix therapy, continued antibiotics, steroids and mucolytic's and obtaining a CT scan of the chest. CT chest showed right hilar lymphadenopathy versus mass causing right main bronchus narrowing with consolidation and interstitial prominence throughout the right upper lobe most concerning for acute infiltrate with cellular infiltrating neoplasm excluded. There was a small nodule in the right lower lobe with spiculation and a left upper lobe spiculated lesion very concerning for neoplastic process. An echocardiogram was completed and showed a moderately dilated left ventricle with severe segmental systolic dysfunction and a 25% ejection fraction. The left atrium was mildly enlarged. Legionella and streptococcal antigens in the urine were negative. Blood cultures were negative. Urine culture had no growth. Sputum grew yeast, not Lyndsay albicans. Influenza swab was negative. One day after vitamin K the INR had come down to 1.8 and he was restarted on 3 mg of warfarin daily. INR was therapeutic between 2 and 3 for the remainder of his hospital stay. A CT scan of the abdomen and pelvis was ordered for elevated LFTs and showed no intra- abdominal mass or adenopathy. There was diverticulosis present and atherosclerosis of the abdominal aorta. There were prostate calcifications in the base of the chest was unchanged since the CT scan of the chest. On 08/03 he was lightheaded with standing and orthostatics were Positive. Diuretics were held and he was instructed to increase his fluid intake. The following day he denied lightheadedness. His breathing improved but, he was still requiring Oxygen at [place]. Ambulatory pulse ox on room air on the day of discharge was 87%. The oxygen saturation aj to 89% on a 4 L nasal cannula. O2 sat at rest on room air was 90%. He was discharged on 4 L of nasal O2. He completed 7 days of antibiotics while in the hospital. He is going to follow-up with Dr. Mack Gay to schedule an EBUS to obtain tissue for definitive diagnosis. Portable oxygen and a nebulizer were arranged at discharge. He will continue DuoNeb aerosols every 4 hours while awake at home. He was given a prescription for a NicoDerm patch 14 mg. He was also placed on a steroid taper at discharge. He will follow-up with Dr. Bhakta in 5 to 7 days and Lasix may need to be restarted for EF of 25%at that time. He will follow up with Dr. Gay within 2 weeks. PHYSICAL EXAM: GENERAL: alert, oriented X 3, Cooperative, NAD, denies lightheadedness ORAL: dry mucosa, no mucosal lesions NECK: No JVD, supple, trachea midline, no supraclavicular enlarged lymph nodes LUNGS: CTA, symmetric chest expansion, diminished HEART: RRR, Normal S1 and S2, no rub, no gallop ABDOMEN: soft, NT, ND, BS present, no guarding with palpation EXTREMITIES: no edema, no cyanosis, no calf tenderness SKIN: No rashes, no breakdown NEUROLOGIC: no focal neurologic deficits PSYCH: appropriate, normal affect, pleasant This note was generated with [employer] dictation software. It may contain incorrect words, spelling, and punctuation that were not noted in checking the note before signing. - Physical Exam Vitals/I&O's: Vital Signs Temp Pulse Resp BP Pulse Ox 98.5 F 103 H 18 88/56 L 93 08/04/19 14:03 08/04/19 15:46 08/04/19 15:32 08/04/19 14:03 08/04/19 15:37 Oxygen Flow Rate (L/min) [ 4 AMBULATION with Oxygen] Oxygen Flow Rate (L/min) 4 Oxygen Delivery Method Nasal Cannula Weight: 131 lb 6.328 oz Body Mass Index (BMI) 20.0 Orthostatic Vital Signs Start: 08/02/19 20:07 Freq: q24h Status: Active Protocol: Activity Type Activity Date Activity User E-Sign Co-Sign Detail Recorded Client Recorded Date Recorded By Document 08/04/19 05:31 TLM [id number] 08/04/19 05:32 TLM 08/04/19 05:31 Orthostatic Vitals Standing -Blood Pressure (90/60-120/80 mm Hg) 97/48 L -Extremity Use Left Arm -Pulse Rate (60-100 beats/min) 107 H Sitting -Blood Pressure (90/60-120/80 mm Hg) 113/59 L -Extremity Use Left Arm -Pulse Rate (60-100 beats/min) 100 Lying -Blood Pressure (90/60-120/80 mm Hg) 95/78 -Extremity Use Left Arm -Pulse Rate (60-100 beats/min) 100 Intake and Output for Last 24 Hours 08/02/19 08/03/19 08/04/19 23:59 23:59 23:59 Intake Total 900 / 900 720 / 720 Output Total 1450 / 1600 575 / 575 1250 / 1250 Balance -1450 / -1280 325 / 325 -530 / -530 Microbiology Past 72 Hours 08/02/19 09:26 Sputum, Expectorated/Coughed Gram Stain - Final 08/02/19 09:26 Sputum, Expectorated/Coughed Respiratory Culture - Final Yeast, not Lyndsay albicans 07/29/19 17:15 Blood Culture (Wb) - Anticubital Left Blood Culture - Final No growth in 5 days. 07/29/19 17:25 Blood Culture (Wb) - Right Wrist Blood Culture - Final No growth in 5 days. Laboratory Results 08/03/19 22:42: POC Glucose 152 H 08/04/19 06:00: PT 27.3 H, INR 2.5 08/04/19 06:00: Sodium 134 L, Potassium 4.5, Chloride 96 L, Carbon Dioxide 31.0, Anion Gap 7, BUN 32 H, Creatinine 0.98, Estim Creat Clear Calc 51.52, Est GFR (M DRD) Af Amer 95, Est GFR (MDRD) Non-Af 79, BUN/Creatinine Ratio 32.8 H, Glucose 115 H, Calcium 8.9, Phosphorus 2.7, Magnesium 2.6 08/04/19 06:35: POC Glucose 100 08/04/19 16:45: POC Glucose 176 H Current Medications Acetaminophen (Tylenol) 650 mg PO Q6H PRN PRN PRN Reason: Pain Score 1-3/Temp > 100.7 F Last Admin: 07/30/19 06:16 Dose: 650 mg Documented by: Albuterol Sulfate (Ventolin Aerosols) 2.5 mg INHALATION Q2H PRN PRN PRN Reason: Shortness of Breath/Wheezing Albuterol/Ipratropium (Duoneb) 3 ml INHALATION Q4HWA.RT [facility] Last Admin: 08/04/19 15:32 Dose: 3 ml Documented by: Atorvastatin Calcium (Lipitor) 80 mg PO QHS [facility] Last Admin: 08/03/19 22:40 Dose: 80 mg Documented by: Benzonatate (Tessalon Perle) 100 mg PO 4X/DAY PRN PRN PRN Reason: COUGH Bisacodyl (Dulcolax) 5 mg PO DAILY PRN PRN PRN Reason: Constipation Calcium Carbonate (Tums) 1,000 mg PO Q6H PRN PRN PRN Reason: HEARTBURN Last Admin: 08/04/19 10:19 Dose: 1,000 mg Documented by: [facility] ([facility]) [facility] Last Admin: 08/04/19 08:15 Dose: 0.5 mg Documented by: Guaifenesin (Mucinex) 1,200 mg PO BID [facility] Last Admin: 08/04/19 08:14 Dose: 1,200 mg Documented by: Sodium Chloride () 250 mls @ 15 mls/hr IV .[id number] PRN PRN Reason: Saline Flush Last Infusion: 08/03/19 19:00 Dose: Infused Documented by: Insulin Human Lispro (Humalog Kwikpen (Bkc)) 0 unit SC [facility]; Protocol Last Admin: 08/04/19 16:47 Dose: 1 u Documented by: Levofloxacin (Levaquin Tablet) 750 mg PO DAILY@0600 [facility] Last Admin: 08/04/19 05:16 Dose: 750 mg Documented by: Lisinopril (Zestril) 2.5 mg PO DAILY [facility] Last Admin: 08/04/19 08:14 Dose: 2.5 mg Documented by: Nicotine (Nicoderm Cq (Pbkc)) 14 mg TRANSDERM. DAILY [facility] Last Admin: 08/04/19 08:16 Dose: 14 mg Documented by: Nutritional Formula (Lactose Free) (Glucerna Shake) 120 ml PO 4X/DAY [facility] Last Admin: 08/04/19 16:46 Dose: Not Given Documented by: Ondansetron HCl (Zofran) 4 mg IV Q8H PRN PRN PRN Reason: NAUSEA/VOMITING Last Admin: 08/03/19 18:05 Dose: 4 mg Documented by: Prednisone () 40 mg PO DAILY@0800 [facility] Last Admin: 08/04/19 08:15 Dose: 40 mg Documented by: Sodium Chloride () 10 - 40 ml IV UD PRN PRN Reason: SALINE FLUSH Last Admin: 08/03/19 18:06 Dose: 10 ml Documented by: Warfarin Sodium (Coumadin (Pbkc)) 3 mg PO DAILY@1700 [facility] Last Admin: 08/04/19 16:47 Dose: 3 mg Documented by: Discharge Activity: - - Avoid exposure to any strong smells such as bleach, cleaning products, strong colognes or perfumes, paint fumes and smoke of any kind. Avoid sudden exposure to cold air because this can cause bronchospasm. You may want to cover your mouth when you go outside in the winter. Avoid exposure to anyone who is sick with a cough or sore throat. Call your doctor if you observe: Fever of 101 or Higher, Shortness of breath, Dizziness, Fainting spells, Swelling in the ankles, Chest pain, - - coughing up blood, blood per rectum, blood noses, bleeding from the gums Home Medications: Medications to take at Discharge Aspirin E.C. [Ecotrin] 81 mg PO DAILY@0800 01/24/15 metFORMIN HCl [Glucophage] 500 mg PO DAILY 01/24/15 atorvastatin 80 mg tablet 80 mg PO QHS 02/23/19 folic acid 400 mcg tablet 0.4 mg PO DAILY 30 Days #30 tab 02/23/19 lisinopril 2.5 mg tablet 2.5 mg PO DAILY 02/23/19 warfarin 3 mg tablet 3 mg PO DAILY 02/23/19 Albuterol Sulfate [Ventolin Hfa] 2 puff IH Q6H PRN PRN 07/29/19 Guaifenesin [Mucinex] 1,200 mg PO BID #20 tab 08/04/19 Ipratropium/Albuterol Sulfate [Duoneb] 3 ml INHALATION Q4HWA.RT #120 ampul.neb 08/04/19 Lisinopril [Zestril] 2.5 mg PO DAILY #30 tab 08/04/19 Nicotine [Nicoderm] 14 mg TRANSDERM. DAILY #28 patch 08/04/19 Prednisone 10 mg PO UD #30 tab 08/04/19 Following Prescrptions Were Given to Patient: Ipratropium/Albuterol Sulfate [Duoneb] 3 ml INHALATION Q4HWA.RT #120 ampul.neb Transmission Status: Received by [facility] #30 Guaifenesin [Mucinex] 1,200 mg PO BID #20 tab Transmission Status: Received by [facility] #30 Nicotine [Nicoderm] 14 mg TRANSDERM. DAILY #28 patch Transmission Status: Received by [facility] #30 Prednisone 10 mg PO UD #30 tab Prescription Printed Lisinopril [Zestril] 2.5 mg PO DAILY #30 tab Transmission Status: Received by [facility]30 Primary Care Physician: Melvin Bhakta MD [Primary Care Provider] - Please follow up with your Primary Care Physician in: 5-7 days Please Follow Up With: Mack Gay DO When: within 2 weeks to get EBUS scheduled Disposition: Home Minutes spent on discharge:: 37 Patient Condition:: Stable Medical Necessity - Tobacco Use Smoking Status: Current every day smoker Tobacco Use: Cigarettes Meaningful Use Info Meaningful Use Diagnoses (Choose all that apply): CHF - CHF DAVID/ARB ordered at discharge?: Yes Documented LVEF (%): 25 Code Visit Inpatient E&M: [id number] Disch Hosp
--- NOTE | 2019-08-04 18:24 | NURSING ---
This RN in to discharge patient. Daughters at bedside. Noticed pt did not have oxygen delivered to room for ride home. Daughter stated she will go home and bring back the oxygen that was delivered to the home.
--- NOTE | 2019-08-04 18:48 | NURSING ---
green/silver O2 tank at bedside is [facility], pt states no one brought in a portable tank for him to take at home. Deny phoned- spoke with BREN Goddard- states she can see a work order but is unable to verify what specifically may have/have not been delivered. Nitza states she will send the order through directly for dispatch to bring deliver a portable tank to [facility] [id number].
[2019-08-05 00:21] LABS: Bedside Glucose 133 mg/dL (70-110)
--- NOTE | 2019-08-05 15:26 | CASEMGMT ---
EMMA RAPHAEL Discharge Follow-Up Phone Call. Lace: 12 Strata: 4 Discharge Date: 08/04/19 Adm Dx: Sepsis secondary to CAP Call to pt to inquire about how he has been doing since being discharged from the hospital. Pt's daughter, Nguyen, answered and asked EMMA RAPHAEL if she could answer questions for her. Nguyen states that her father is doing pretty good, stating that nurse from [facility] was there to see him today. She states they have called PCP's office to schedule follow-up appt and are awaiting call back from Dr Gay's office for an appt. She states they were able to get all of the new prescriptions filled and that they do not have any questions re: medications or discharge instructions. She state the oxygen and nebulizer were delivered yesterday and states, We've shown dad and mom how to use the oxygen and machine. Nguyen states We're doing pretty good over here and thanked EMMA RAPHAEL for calling. EMMA RAPHAEL thanked pt for choosing [facility]. Leonila GARVEYN EMMA RAPHAEL
== END 2019-08-04 19:17 | disposition home health service (06) | DRG 871 ==
LOC: ED 17:16 → MS3 20:42
PROVIDERS: Internal Medicine; Physician Assistant; Admitting Provider Hospitalist; Emergency Provider Emergency Medicine; Family Provider Family Medicine; PCP Family Medicine; Visit Provider Internal Medicine
DX: A41.9 Sepsis, unspecified organism (principal); J18.9 Pneumonia, unspecified organism; J96.01 Acute respiratory failure with hypoxia; I50.23 Acute on chronic systolic (congestive) heart failure; E43 Unspecified severe protein-calorie malnutrition; J44.0 Chronic obstructive pulmonary disease with (acute) lower respiratory infection; J44.1 Chronic obstructive pulmonary disease with (acute) exacerbation; I25.10 Atherosclerotic heart disease of native coronary artery without angina pectoris; R65.20 Severe sepsis without septic shock; Z23 Encounter for immunization; Z95.1 Presence of aortocoronary bypass graft; Z95.5 Presence of coronary angioplasty implant and graft; E11.9 Type 2 diabetes mellitus without complications; I25.2 Old myocardial infarction; E78.5 Hyperlipidemia, unspecified; Z79.84 Long term (current) use of oral hypoglycemic drugs; Z79.01 Long term (current) use of anticoagulants; Z79.82 Long term (current) use of aspirin; F17.210 Nicotine dependence, cigarettes, uncomplicated; I25.5 Ischemic cardiomyopathy; I11.0 Hypertensive heart disease with heart failure; I51.3 Intracardiac thrombosis, not elsewhere classified; I95.1 Orthostatic hypotension; T45.515A Adverse effect of anticoagulants, initial encounter; R79.1 Abnormal coagulation profile; Z68.20 Body mass index [BMI] 20.0-20.9, adult; R91.8 Other nonspecific abnormal finding of lung field
CPT/HCPCS: 36415; 36600; 71045; 71046; 71250; 71260; 74177; 76705; 80048; 80053; 81001; 82803; 82962; 83605; 83735; 83880; 84100; 84484; 85025; 85610; 85730; 87040; 87070; 87086; 87205; 87449; 87804; 93005; 93306; 94640; 94660; 94667; 94668; 97116; 97162; 97165; 97530; 97802; 97803; 99285; 99406; G0008; J7030; J7050; Q9957; Q9967; 90686; A4216; C8929; J0295; J1940; J2405; J3490

== ENCOUNTER 2019-08-18 09:30 | Outpatient (RCR) | payer MEDICARE, SELFPAY ==
[2019-08-17 07:49] VITALS: BMI 19.8
[2019-08-18 10:10] LABS: International Normalized Ratio 1.4; Prothrombin Time (Protime)PT. 17.4 SECONDS (11.7-14.9)
== END 2019-08-18 18:00 | disposition home or self-care (01) ==
LOC: HHLAB 09:30
PROVIDERS: Family Provider Family Medicine; PCP Family Medicine; Referring Provider Family Medicine; Visit Provider Family Medicine
DX: J18.1 Lobar pneumonia, unspecified organism (principal); J44.0 Chronic obstructive pulmonary disease with (acute) lower respiratory infection; I25.10 Atherosclerotic heart disease of native coronary artery without angina pectoris
CPT/HCPCS: 85610

== ENCOUNTER → 2019-08-22 07:21 | Outpatient (CLI) | payer MEDICARE, SELFPAY ==
[2019-08-17 07:49] VITALS: BMI 19.8
--- NOTE | 2019-08-22 08:00 | PET_ITS ---
EXAMINATION: FDG PET/CT INDICATIONS: A 79-year-old male with history of pulmonary nodularity-mass formation. COMPARISON EXAMINATION: CT of the chest report dated 07/31/19 INDEX LESION SIZE SUV INTERPRETATION Right thoracic perihilum-mediastinum 54.3-mm (largest) (frame 186) 6.0 (max) Fulfills quantitative criteria for viable neoplasm Right lower hemithorax pulmonary parenchyma-right lower lobe 12.8-mm (frame 172 2.7 Fulfills quantitative criteria for viable neoplasm NON-INDEX LESION SIZE SUV INTERPRETATION Additional right and left hemithorax pulmonary parenchymal hypermetabolic foci 1.8 (max) Quantitative criteria for viable neoplasm are not fulfilled TECHNIQUE: Following the intravenous administration of 14.29 mCi of F-18 deoxyglucose via the right antecubital fossa, multiplanar image acquisitions of the neck, chest, abdomen and pelvis to level of mid thigh, obtained at one hour post radiopharmaceutical administration contemporaneously interpreted with the current CT of the neck, chest, abdomen and pelvis to level of mid thigh, dated 08/22/[address] of the chest report dated 07/31/19 reveal: SERUM GLUCOSE LEVEL: 93 mg/dl. HEIGHT: 68 inches. WEIGHT: 130 lbs. FINDINGS: 1. Heterogeneous increased glucose concentration is observed in the right thoracic perihilum extending to the carinal, subcarinal mediastinum generating a calculated maximal standard uptake value of 6.0. The maximal axial diameter of the metabolic, morphologic abnormality is 54.3-mm (transverse). There is encasement of the right proximal main stem bronchus. 2. Several additional nodular foci of increased glucose concentration are observed within the context of the right lower lung field-right lower lobe nodular in presentation, generating a calculated maximal standard uptake value of 2.7. The maximal axial diameter of the corresponding parenchymal density on review of CT of the chest dated 08/22/19 is 12.8-mm (AP). 3. Two additional nodular foci of increased glucose concentration are observed in the left hemithorax pulmonary parenchyma-left upper lobe, linear density in the right mid anterior lung generating a calculated maximal standard uptake value of 1.8. Quantitative criteria for viable neoplasm are not fulfilled. 4. Normal physiologic distribution of the radiopharmaceutical is apparent in the hepatic (3.2) and splenic parenchyma, both renal units, bladder and visualized intestinal tract. The visualized portion of the cerebral cortex demonstrate symmetric and preserved glucose metabolism. Diffuse radiopharmaceutical concentration is noted in all four quadrants of the abdomen and pelvis. Prominent radiopharmaceutical concentration is demonstrated in the left ventricular myocardium most consistent with the pattern associated with failure to fast. Pertinent CT findings are as follows: CHEST: Emphysematous change is noted in the bilateral upper lung zones. Airspace disease defined in the right upper anterior lung field demonstrates linear non-quantitatively significant enhanced FDG uptake previously described. There is evidence of prior median sternotomy. There is atherosclerotic calcification defined in the thoracic aorta without evidence of dilatation-aneurysm formation. Coronary arterial calcification is observed. Bilateral axillary and mediastinal subcentimeter densities are ametabolic. ABDOMEN AND PELVIS: There is atherosclerotic calcification defined in the abdominal aorta without evidence of dilatation-aneurysm formation. Abdominal-pelvic arterial calcification is observed. Retroperitoneal soft tissue densities are ametabolic. Colonic diverticulosis is defined without evidence of diverticulitis. A fat containing right inguinal hernia is noted. Bilateral inguinal soft tissue densities with fatty hilus formation are ametabolic. Dense calcification is noted within the prostate gland without evidence of quantitatively significant increased glucose concentration. Calcified phlebolith formation is noted in the left lower pelvis. SKELETAL: Degenerative changes are noted in the cervical, thoracic and lumbar spine. Diffuse demineralization is noted. PET/PET/CT Tumor Base -Thigh Init IMPRESSION: 1. Increased glucose concentration observed in the right thoracic perihilum, mediastinal structures, fulfills quantitative criteria for viable neoplasm. Histopathologic analysis is recommended. (Brice et al, Journal of Clinical Oncology 16:2142, 1998 Dany, Seminars in Thoracic and Cardiovascular Surgery 14:292, 2002). 2. Facilitated radiopharmaceutical concentration observed in the right lower posterior lung field-right lower lobe fulfills quantitative criteria for malignant transformation. 3. Additional left and visualized right hemithorax pulmonary parenchymal metabolic abnormalities do not fulfill quantitative criteria for malignancy. Electronic Signature Odin Conde D.O. Electronically Signed: Odin Conde DO at 8:52 EST Tel , Service support ,
== END ==
PROVIDERS: Family Provider Family Medicine; PCP Family Medicine; Referring Provider Nurse Practitioner Acute Care; Visit Provider Nurse Practitioner Acute Care
DX: R91.8 Other nonspecific abnormal finding of lung field (principal)
CPT/HCPCS: 78815; A9552

== ENCOUNTER 2019-09-16 10:19 | Day surgery (SDC) | payer MEDICARE, SELFPAY ==
[2019-09-07 13:33] VITALS: BMI 19.8
--- NOTE | 2019-09-15 | IMM_PTH ---
PATIENT: RITA OCHOA LOC: EN U#:[id number] AGE/SX: 79/M ROOM: RE09/16/[address]: Dr. Jhon Cortez MD : 1940 BED: DIS: 09/16/2019 SPEC #: [id number] RECD: 09/19/19 12:22 STATUS: SOUBelinda REQ #: [id number] ANNA: 09/15/19 00:[address]: Jhon Cortez DEPT: IMMUNOHISTOCHEMISTRY RECD BY: Kyara Sanchez ENTERED: 09/19/19 12:28 SP TYPE: IMMUNO OTHR DR: Dr. Melvin Bhakta MD Tissues: C - Lung, NOS Procedures: RCC (add) NAPSIN A (add) CK20 (add) CK5-6 (add) CK7 (add) CK8 (add) HEP PAR (add) TTF1 (add) Pankeratin (initial) P40 (add) PSAP (add) PHYSICIAN & INSTITUTION [place] [id number] SPECIMEN INFORMATION: Tissue Source: C - Transbronchial needle aspirate, site 4R Clinical Info: Lung mass, mediastinal lymphadenopathy Specimen Number: [id number] CPT code: 00799, 38969 x10 METHODOLOGY: Deparaffinized sections of prefer/formalin-fixed tissue or PAP/DQ stained slides are incubated with monoclonal/polyclonal antibodies/oligonucleotide probes. Localization is made via biotin free immunoperoxidase method. Appropriate controls are performed and reacted as expected. Results on target cell population are indicated in the following table: RESULTS: ANTIBODY / CLONE RESULT Block C AE1-3 (AE1/AE3/PCK26) positive CK7 (OV-TL12/30) negative CK8 (55bbmeM01) positive CK20 (KS20.8) negative TTF-1 (8G7G3/1) negative Napsin A (Rabbit Polyclonal) negative HepPar (OCh1E5) negative RCC (PN-15) negative PSAP (PASE/4LJ) negative CK5-6 (D5 & 1684) positive P40 (BC28) positive These tests were developed and their performance characteristics determined by [facility]. They may not have been cleared or approved by the U.S. Food and Drug Administration. The FDA has determined that such clearance or approval is not necessary. The above immunohistochemical/dualISH markers are ordered and reviewed by the Pathologist. INTERPRETATION: C. Transbronchial needle aspirate, site 4R: Non-small cell carcinoma, favor squamous cell carcinoma. SJ:north 09/19/19
[2019-09-15 13:10] VITALS: BMI 19.5
[2019-09-16] VITALS (8 sets, daily range): BP systolic 103–124; BP diastolic 59–75; PULSE 83–88; RESP 14–18; TEMP 36.2–36.6; O2SAT 99–100; BMI 19.4
--- NOTE | 2019-09-16 | LUNG_PTH ---
PATIENT: RITA OCHOA LOC: EN U#:[id number] AGE/SX: 79/M ROOM: RE09/16/[address]: Dr. Jhon Cortez MD : 1940 BED: DIS: 09/16/2019 SPEC #: [id number] RECD: 09/16/19 14:00 STATUS: ROXANN REIzabela #: [id number] ANNA: 09/16/19 00:[address]: Jhon Cortez DEPT: SURGICAL PATHOLOGY RECD BY: Coy Perry ENTERED: 09/19/19 08:46 SP TYPE: LUNG BX OTHR DR: Dr. Melvin Bhakta MD Tissues: Lung, NOS Procedures: Surgery Specimen Level IV HEADER OPERATION: Bronchoscopy with EBUS and biopsy PRE-OP DIAGNOSIS: Lung mass TISSUE SUBMITTED: Endobronchial biopsy, bronchus intermedius MICROSCOPIC DIAGNOSIS Bronchus intermedius, endobronchial biopsy: Non-small cell carcinoma, favor squamous cell carcinoma. See comment. COMMENT Please also made reference to corresponding cytology specimen ([id number]), transbronchial needle aspirate fluid, site 4R, and right washing fluid with diagnosis of non-small cell carcinoma, favor squamous cell carcinoma. MICROSCOPIC DESCRIPTION Slides are reviewed. GROSS DESCRIPTION Received in fixative is one container labeled with the patient's name and designated endobronchial biopsy, bronchus intermedius. The specimen consists of multiple irregular fragments of light rolle soft tissue that in aggregate measure 1 x 0.3 x 0.1 cm. The specimen is totally submitted in one cassette. / SJ:north 09/16/19 TC:0 CPT: 95665
--- NOTE | 2019-09-16 | FLU_PTH ---
PATIENT: RITA OCHOA LOC: EN U#:[id number] AGE/SX: 79/M ROOM: RE09/16/[address]: Dr. Jhon Cortez MD : 1940 BED: DIS: 09/16/2019 SPEC #: [id number] RECD: 09/16/19 14:15 STATUS: ROXANN MARITZA #: [id number] ANNA: 09/16/19 00:[address]: Jhon Cortez DEPT: CYTOLOGY RECD BY: Coy Perry ENTERED: 09/16/19 14:17 SP TYPE: Fluid OTHR DR: Dr. Melvin Bhakta MD Tissues: A - Lung, NOS B - Lung, NOS C - Lung, NOS D - Lung, NOS Procedures: Special Stain Group II Surgery Specimen Level IV Cytospin Fluid Cytology Other HEADER OPERATION: Endobronchial ultrasound PRE-OP DIAGNOSIS: Lung mass, mediastinal lymphadenopathy TISSUE SUBMITTED: A - EBUS, FNA, site 4R, B - EBUS, FNA, site 4R, C - Transbronchial needle aspirate, D - Right washing DIAGNOSIS CYTOLOGY A. EBUS, FNA, site 4R (smears): Positive for malignant cells derived from non-small cell carcinoma. B. EBUS, FNA, site 4R #2: Positive for malignant cells derived from non-small cell carcinoma. C. Transbronchial needle aspirate, site 4R (cell block): Non-small cell carcinoma, favor squamous cell carcinoma. See comment. D. Right washing fluid (cytospin and cell block): Non-small cell carcinoma, favor squamous cell carcinoma. SJ:north 09/19/19 COMMENT The specimen is evaluated at the time of procedure by Dr. Walls. Immediate Evaluation: A. EBUS, FNA, aspiration #1, site 4R: Positive for malignant cells, non-small cell carcinoma. B. EBUS, FNA, aspiration #2, site 4R: Positive for malignant cells, non-small cell carcinoma. C. Immunohistochemistry ([id number]) supports the above diagnosis. Molecular studies on the tumor can be performed if clinically indicated. Please notify the laboratory if they are needed. Please also reference to corresponding surgical specimen [id number], bronchus intermedius, endobronchial biopsy with diagnosis of non-small cell carcinoma, favor squamous cell carcinoma. CYTOLOGY STUDY Slides are reviewed. CYTOLOGY GROSS A - Received labeled with the patient's name and and designated EBUS, FNA, aspiration 1, site 4R. The specimen consists of two smears submitted for immediate cytologic evaluation (wet red). B - Received labeled with the patient's name and and designated EBUS, FNA, aspiration 2, site 4R. The specimen consists of two smears submitted for immediate cytologic evaluation (wet red). C - Received is 20 ml of red cloudy fluid in RPMI labeled with the patient's name and and designated transbronchial needle aspirate, submitted for cell block preparation. D - Received is 20 ml of red cloudy fluid labeled with the patient's name and and designated right washing, submitted for cell block and cytospin preparation. / ANIRUDH:north 09/16/19 TC:0 CPT: 50159, 48666, 30700,12377r6, 92229
[2019-09-16] MEDS: Lactated Ringers 1,000 ML 75 ML IV (11:27)
[2019-09-16 11:36] LABS: Bedside Glucose 92 mg/dL (70-110)
--- NOTE | 2019-09-16 12:23 | PCM.HP.BLA ---
Problem List (1) Atherosclerosis of coronary artery without angina pectoris Status: Chronic Comment: PCI-[facility] Prox LCx w/ 2.5 x 12 mm Resolute Integrity Stent 01/25/2015; CABG x 5 GONCALVES-LAD, Sequential SVG-OM1, OM2,SVG-D1, SVG-RPDA 2007 (2) H/O coronary artery bypass surgery Status: Resolved Comment: CABG x 5 GONCALVES-LAD, Sequential SVG-OM1, OM2,SVG-D1, SVG-RPDA 2007 (3) History of coronary artery stent placement Status: Resolved Comment: PCI-[facility] Prox LCx w/ 2.5 x 12 mm Integrity Stent 01/25/2015 (4) Chronic systolic (congestive) heart failure Status: Chronic (5) Essential (primary) hypertension Status: Chronic (6) Hyperlipidemia Status: Chronic (7) COPD (chronic obstructive pulmonary disease) Status: Chronic (8) Lung mass Status: Chronic (9) Nicotine dependence Status: Chronic Qualifiers: History and Physical Date of Admission: 09/16/19 Outpatient office note completed on 09/07/2019 by Bridget Medrano in our office was personally reviewed. There is no significant changes compared to this documentation. Patient did discontinue Coumadin 5 days previously. Patient is of his usual health. Patient is using 4 L nasal cannula oxygen, but nursing staff has shown that he does not require any supplemental oxygen at rest preoperatively.
--- NOTE | 2019-09-16 13:39 | OP.BRONCH_ITS ---
Patient Name: Sadi Jaquez Procedure Date: 09/16/2019 12:18 PM Date of : 1940 Age: 79 Procedure: Bronchoscopy Indications: Bronchus intermedius mass, Right upper lobe mass, Right hilar mass Providers: Jhon Cortez MD Referring MD: Melvin Bhakta Medicines: See the Anesthesia note for documentation of the administered medications Complications: No immediate complications Procedure: Pre-Anesthesia Assessment: - Prior to the procedure, a History and Physical was performed, and patient medications and allergies were reviewed. The patient's tolerance of previous anesthesia was also reviewed. The risks and benefits of the procedure and the sedation options and risks were discussed with the patient. All questions were answered, and informed consent was obtained. Prior Anticoagulants: The patient has taken Coumadin (warfarin), last dose was 5 days prior to procedure. ASA Grade Assessment: III - A patient with severe systemic disease. After reviewing the risks and benefits, the patient was deemed in satisfactory condition to undergo the procedure. After I obtained informed consent, the scope was passed under direct vision. Throughout the procedure, the patient's blood pressure, pulse, and oxygen saturations were monitored continuously. The ultrasound bronchoscope was introduced through the mouth, via laryngeal mask airway and advanced to the tracheobronchial tree of both lungs. The procedure was accomplished without difficulty. The patient tolerated the procedure well. Findings: The nasopharynx/oropharynx appears normal. The larynx appears normal. The vocal cords appear normal. The subglottic space is normal. The trachea is of normal caliber. The eulalio is sharp. The tracheobronchial tree of the left lung was examined to at least the first subsegmental level. Bronchial mucosa and anatomy in the left lung are normal; there are no endobronchial lesions, and no secretions. Evaluation of left hilar lymph node stations showed none of pathologic size. Right Lung Abnormalities: A nearly obstructing (greater than 90% obstructed) airway abnormality was found in the right upper lobe. A partially obstructing (about 50% obstructed) mass was found in the middle portion in the bronchus intermedius. The mass was medium-sized and endobronchial and fungating. The lesion was successfully traversed. Endobronchial biopsies of a mass were performed in the bronchus intermedius using a forceps and sent for histopathology examination. Four samples were obtained. An endobronchial ultrasound endoscope was utilized in order to assist with fine needle aspiration and better characterize the mass in the right paratracheal area and in the right hilum. Transbronchial needle aspiration of a mass was performed in the right paratracheal area and in the right hilum using an Olympus EBUS-TBNA 21 gauge needle and sent for routine cytology and histopathology examination. The procedure was guided by ultrasound. Three samples were obtained. Stage T3 and N2. Washings were obtained in the bronchus intermedius and sent for routine cytology. The return was bloody. Multiple specimens were obtained and pooled into one specimen, which was sent for analysis. Impression: - Bronchus intermedius mass - Probable cancer - Right upper lobe mass - Right hilar mass - SHEBA consistent with malignancy - The airway examination of the left lung was normal. - Nearly obstructing (greater than 90% obstructed) airway abnormality in the right upper lobe. - An endobronchial and fungating mass was found in the bronchus intermedius. This lesion is malignant. - Endobronchial ultrasound was performed. - A transbronchial needle aspiration was performed. Recommendation: - Discharge patient to home (ambulatory). - Await biopsy, cytology and washing results. Procedure Code(s): --- Professional --- 66849, Bronchoscopy, rigid or flexible, including fluoroscopic guidance, when performed; with transbronchial needle aspiration biopsy(s), trachea, main stem and/or lobar bronchus(i) 30503, 59, Bronchoscopy, rigid or flexible, including fluoroscopic guidance, when performed; with bronchial or endobronchial biopsy(s), single or multiple sites 04434, Bronchoscopy, rigid or flexible, including fluoroscopic guidance, when performed; with transendoscopic endobronchial ultrasound (EBUS) during bronchoscopic diagnostic or therapeutic intervention(s) for peripheral lesion(s) (List separately in addition to code for primary procedure[s]) Diagnosis Code(s): --- Professional --- C34.00, Malignant neoplasm of unspecified main bronchus J98.4, Other disorders of lung R91.8, Other nonspecific abnormal finding of lung field CPT copyright 2017 [employer]. All rights reserved. The codes documented in this report are preliminary and upon hazardous waste management specialist review may be revised to meet current compliance requirements. MD Jhon Jimenes MD 09/16/2019 1:38:47 PM This report has been signed electronically. Number of Addenda: 0 Note Initiated On: 09/16/2019 12:18 PM
[2019-09-16 13:56] LABS: Prothrombin Time Fingerstick 13.8 SEC (11.9-14.4)
[2019-09-16 14:51] LABS: Bedside Glucose 84 mg/dL (70-110)
== END 2019-09-16 15:49 | disposition home or self-care (01) ==
LOC: EN 10:20 → AC 10:21
PROVIDERS: Family Provider Family Medicine; PCP Family Medicine; Referring Provider Family Medicine; Visit Provider Internal Medicine Critical Care Medicine
PROC: BB4BZZZ Ultrasonography of Pleura (ICD-10-PCS; CPT 31625; principal; 2019-09-16 12:00)
DX: C34.01 Malignant neoplasm of right main bronchus (principal); J98.4 Other disorders of lung; J44.9 Chronic obstructive pulmonary disease, unspecified; D68.32 Hemorrhagic disorder due to extrinsic circulating anticoagulants; T45.515A Adverse effect of anticoagulants, initial encounter; E11.9 Type 2 diabetes mellitus without complications; I11.0 Hypertensive heart disease with heart failure; I50.22 Chronic systolic (congestive) heart failure; I25.10 Atherosclerotic heart disease of native coronary artery without angina pectoris; I25.5 Ischemic cardiomyopathy; I25.2 Old myocardial infarction; E78.5 Hyperlipidemia, unspecified; F12.90 Cannabis use, unspecified, uncomplicated; F17.210 Nicotine dependence, cigarettes, uncomplicated; Z95.1 Presence of aortocoronary bypass graft; Z95.5 Presence of coronary angioplasty implant and graft; Z79.82 Long term (current) use of aspirin; Z79.84 Long term (current) use of oral hypoglycemic drugs; Z79.01 Long term (current) use of anticoagulants; Z99.81 Dependence on supplemental oxygen; Z79.899 Other long term (current) drug therapy
CPT/HCPCS: 31625; 31629; 31654; 36416; 82962; 85610; 88108; 88161; 88305; 88313; 88341; 88342; J7120; J2405

== ENCOUNTER 2019-10-04 12:40 | Inpatient (IN) | payer MEDICARE, SELFPAY ==
[2019-09-29 14:09] VITALS: BMI 20.8
[2019-10-04] VITALS (12 sets, daily range): BP systolic 79–96; BP diastolic 43–61; PULSE 76–100; RESP 18–24; TEMP 36.5–36.7; O2SAT 95–100; BMI 19.8; BMI 20.2
--- NOTE | 2019-10-04 13:25 | RAD_ITS ---
STUDY: X-RAY CHEST REASON FOR EXAM: Male, 79 years old. PT WITH HEADACHE. INCREASED WEAKNESS AND FATIGUE TECHNIQUE: Single AP portable view of the chest. COMPARISON: Comparison is made with prior study dated August 02, 2019. FINDINGS: Dense infiltration in the right upper lobe. Elevation of the right hemidiaphragm with blunting of the right costophrenic angle. Stable scarring at the lung bases. Sternal cerclage wires and vascular clips are present from a prior sternotomy and coronary artery bypass graft procedure (CABG). Possible right hilar mass. Normal visualized pulmonary arteries. There is atherosclerotic calcification of the aortic arch with tortuosity. There are degenerative changes of the visualized thoracic spine. Normal visualized ribs, clavicles, and shoulders. There is no demonstrated abnormality of the visualized soft tissue structures of the upper abdomen. RAD/Chest 1 View (Portable) IMPRESSION: Dense right upper lobe consolidation with elevation of the right hemidiaphragm. Possible right hilar mass. Stable increased markings at the lung bases suggestive scarring. Electronically Signed: Willian Wynn, at 13:43 EST , Service support ,
--- NOTE | 2019-10-04 13:25 | CT_ITS ---
STUDY: CT BRAIN WITHOUT CONTRAST REASON FOR EXAM: Male, 79 years old. Headache, increased weakness and fatigue RADIATION DOSAGE (If Supplied By Facility): CTDIvol = ( 44.99 ) mGy, DLP = ( 849.54 ) mGycm TECHNIQUE: Transaxial CT imaging of the brain was performed without administration of intravenous contrast material. Individualized dose optimization techniques were used for this CT. COMPARISON: No relevant priors. FINDINGS: Normal soft tissue structures. Normal calvarium. There is moderate cerebral atrophy with widening of the extra-axial spaces and ventricular dilatation. There are areas of decreased attenuation within the white matter tracts of the supratentorial brain, consistent with microvascular disease changes. Normal basal ganglia and thalami. Normal brainstem. There is moderate cerebellar atrophy. There is no intracranial hemorrhage. There are no findings of an acute ischemic infarction. Normal visualized paranasal sinuses. CT/Brain/Head without Contrast IMPRESSION: Chronic involutional changes of the brain. Electronically Signed: Willian Wynn, at 15:14 EST , Service support ,
--- NOTE | 2019-10-04 13:25 | EKG12_ITS ---
Test Reason : Blood Pressure : / mmHG Vent. Rate : 093 BPM Atrial Rate : 093 BPM P-R Int : 166 ms QRS Dur : 090 ms QT Int : 352 ms P-R-T Axes : 057 078 134 degrees QTc Int : 437 ms Sinus rhythm with occasional Premature ventricular complexes Anterior infarct , age undetermined T wave abnormality, consider lateral ischemia Abnormal ECG Confirmed by SARITA KENNEDY ([id number]), assignment desk editor JENY BACH ([id number]) on 10/06/2019 10:49:02 AM Referred By: Monico Mcintyre Confirmed By:SARITA KENNEDY
[2019-10-04 13:51] LABS: Absolute Lymphocyte Count 0.54 X10^3/uL (0.83-4.51); Absolute Neutrophil Count 10.3 X10^3/uL (2.0-7.7); Basophil# 0.02 X10^3/uL; Basophil% 0.2 % (0-1); Eosinophil# 0.07 X10^3/uL; Eosinophils% 0.6 % (0-5); Hematocrit 32.7 % (40-54); Hemoglobin 10.1 g/dL (13.0-16.5); Lymphocyte # 0.54 X10^3/ul (4.0); Lymphocyte % 4.4 % (19-41); Mean Corp Hgb Conc 30.9 g/dL (32-36); Mean Corpuscular Hgb 27.3 pg (27.0-32.0); Mean Corpuscular Volume 88.4 fL (80-94); Mean Platelet Vol. 9.9 fl (6.2-12.0); Monocyte# 1.29 X10^3/uL; Monocyte% 10.5 % (0-10); NRBC Flagged by Analyzer 0 % (0-5); Neutrophil % 83.8 % (47-70); POSITIVE DIFFERENTIAL YES; Platelet Count 311 K/mm3 (150-450); RBC Distribution Width CV 15.2 % (11.6-14.6); RBC Distribution Width SD 49.1 fl (35.1-43.9); White Blood Count 12.3 K/mm3 (4.4-11.0)
[2019-10-04 13:58] LABS: Differential Indicated SCAN CRITERIA MET
[2019-10-04] MEDS: 0.9% Normal Saline 1,000 ML 1000 ML IV (13:58)
[2019-10-04] MEDS: Ipratropium/Albuterol Sulfate 3 ML AMPUL.NEB INHALATION ×2 (14:07→18:51)
[2019-10-04] MEDS: Albuterol 2.5 MG/3 ML VIAL.NEB. INHALATION ×3 (14:07)
[2019-10-04 14:13] LABS: Anion Gap 4 (5-15); BUN 26 mg/dL (7-18); BUN/Creat Ratio 30.7 RATIO (10-20); Calcium,Total 9.2 mg/dL (8.5-10.1); Chloride 100 mmol/L (98-107); Creatinine, Serum 0.85 mg/dL (0.70-1.30); EST Glomerular Filtration Rate 93 mL/min (>60); Est Glom Filt Rate - Afr Amer 112 mL/min (>60); Estimated Creatinine Clearance 58.77 ml/min; Glucose 133 mg/dL (74-106); Potassium 3.8 mmol/L (3.5-5.1); Sodium Level 136 mmol/L (136-145)
[2019-10-04 14:14] LABS: Lactic Acid 1.1 mmol/L (0.4-1.9)
[2019-10-04] MEDS: 0.9% Normal Saline 1,000 ML 999 ML IV (15:11)
--- NOTE | 2019-10-04 15:28 | ED.VISSUMM ---
- ER Visit Summary Date of Service: 10/04/19 Chief Complaint: Shortness of breath, fatigue History of Present Illness: The patient is a 79 M presenting with shortness of breath, cough, fatigue. Patient has had temperature up to 100.4 at home. He has had increasing shortness of breath and productive cough. He denies chest pain. He was recently diagnosed with lung cancer and is in the process of getting this worked up. He recently had a bronchoscopy with biopsy. He wears home O2 4 L. Physical Examination: Blood pressure 79/51. 95% on 4 L. Patient is afebrile. Alert no acute distress. HEENT exam is unremarkable. Neck is supple. Lungs are wheezing bilaterally. Heart is regular rate and rhythm. Abdomen is soft nontender nondistended. Extremities are unremarkable. Skin is warm and dry. No focal neurologic deficit. Remainder of exam is unremarkable. Emergency Department Course and Treatment: Patient was given IV fluids. Given albuterol, Atrovent aerosols. EKG is sinus rate of 93 with lateral T wave inversion, similar to previous. CBC white count 12.3, hemoglobin 10.1. Chemistries show glucose 133, BUN 26. Troponin is negative. Lactic acid is normal. Blood cultures were sent. Influenza is negative. Patient had improvement of his blood pressure to systolic of 90s after first liter. He was ordered additional IV fluids. Discussed with Dr. Cortez, recommends HCAP antibiotics. He was given Zosyn and vancomycin. Discussed with the hospitalist for admission. Disposition: Admission Impression: HCAP This note was generated with [employer] dictation software. It may contain incorrect words, spelling, and punctuation that were not noted in review of the chart prior to signing ED Disposition - Plan for ED Patient: Referrals: Melvin Bhakta MD [Primary Care Provider] -
--- NOTE | 2019-10-04 15:41 | NURSING ---
PCU HCAP ISELA
--- NOTE | 2019-10-04 15:49 | PCM.HP.STD ---
<Priyanka Lundberg - Last Filed: 10/04/19 16:29> Problem List (1) Squamous cell carcinoma of lung Status: Chronic (2) Type 2 diabetes mellitus Status: Chronic (3) Atherosclerosis of coronary artery without angina pectoris Status: Chronic Comment: PCI-RYANNE[employer] Prox LCx w/ 2.5 x 12 mm Resolute Integrity Stent 01/25/2015; CABG x 5 GONCALVES-LAD, Sequential SVG-OM1, OM2,SVG-D1, SVG-RPDA 2007 (4) H/O coronary artery bypass surgery Status: Resolved Comment: CABG x 5 GONCALVES-LAD, Sequential SVG-OM1, OM2,SVG-D1, SVG-RPDA 2007 (5) History of non-ST elevation myocardial infarction (NSTEMI) Status: Chronic (6) History of coronary artery stent placement Status: Chronic Comment: [employer] Prox LCx w/ 2.5 x 12 mm Integrity Stent 01/25/2015 (7) Ischemic cardiomyopathy Status: Chronic (8) LV (left ventricular) mural thrombus following WI Status: Chronic (9) Chronic systolic (congestive) heart failure Status: Chronic (10) Essential (primary) hypertension Status: Chronic (11) Hyperlipidemia Status: Chronic (12) COPD (chronic obstructive pulmonary disease) Status: Chronic (13) Lung mass Status: Chronic (14) Nicotine dependence Status: Chronic History of Present Illness Date of Admission: 10/04/19 Chief Complaint: Shortness of breath, left sided headache. The patient is a 79 year old M who presents emergency room due to shortness of breath and intermittent left-sided headache. Patient reports he has had shortness of breath, worse with exertion over the past month. He reports occasional productive cough. He reports a fever earlier today of 100.4 Fahrenheit. He denies orthopnea, lower extremity swelling or weight gain. Patient was recently diagnosed with stage IV non-small cell lung cancer. Patient reports he does not want any treatment including chemotherapy for his cancer. Patient notes he is currently wearing 4 L nasal cannula continuously at baseline. He underwent recent bronchoscopy 09/16/2019 which demonstrated a nearly obstructing right upper lobe airway abnormality, endobronchial fungating mass noted in the bronchus intermedius. Discussed with patient and patient's daughter who is POA CODE STATUS, patient would like to be DNR CCA with no intubation or CPR. Patient and daughter are agreeable to palliative referral. His other past medical history includes CAD with history of CABG and stents, ischemic cardiomyopathy, COPD, hypertension, hyperlipidemia, left ventricular mural thrombus, type 2 diabetes mellitus, tobacco dependence. Past Medical History Past Medical History (Chronic Problems): Chronic Problems (Last Reviewed 09/29/19 @ 14:08 by Keeley Bah) Squamous cell carcinoma of lung (Chronic) Type 2 diabetes mellitus (Chronic) Atherosclerosis of coronary artery without angina pectoris (Chronic) [employer]RY[employer]OR Prox LCx w/ 2.5 x 12 mm Resolute Integrity Stent 01/25/2015; CABG x 5 GONCALVES-LAD, Sequential SVG-OM1, OM2,SVG-D1, SVG-RPDA 2007 History of non-ST elevation myocardial infarction (NSTEMI) (Chronic 2014) History of coronary artery stent placement (Chronic 01/25/15) [employer] Prox LCx w/ 2.5 x 12 mm Integrity Stent 01/25/2015 Ischemic cardiomyopathy (Chronic) LV (left ventricular) mural thrombus following WI (Chronic) Chronic systolic (congestive) heart failure (Chronic) Essential (primary) hypertension (Chronic) Hyperlipidemia (Chronic) COPD (chronic obstructive pulmonary disease) (Chronic) Lung mass (Chronic) Nicotine dependence (Chronic) Medical History: Medical History (Last Reviewed 09/29/19 @ 14:08 by Keeley Bah) Type 2 diabetes mellitus (Chronic) E11.9 Atherosclerosis of coronary artery without angina pectoris (Chronic) I25.10 [employer] Prox LCx w/ 2.5 x 12 mm Resolute Integrity Stent 01/25/2015; CABG x 5 GONCALVES-LAD, Sequential SVG-OM1, OM2,SVG-D1, SVG-RPDA 2007 History of non-ST elevation myocardial infarction (NSTEMI) (Chronic) Onset Date: 2014 I25.2 Ischemic cardiomyopathy (Chronic) I25.5 LV (left ventricular) mural thrombus following WI (Chronic) I23.6 Chronic systolic (congestive) heart failure (Chronic) I50.22 Essential (primary) hypertension (Chronic) I10 Hyperlipidemia (Chronic) E78.5 COPD (chronic obstructive pulmonary disease) (Chronic) J44.9 Lung mass (Chronic) R91.8 Nicotine dependence (Chronic) F17.200 Acute on chronic systolic (congestive) heart failure (Resolved) I50.23 Allergies No Known Allergies Allergy (Verified 10/04/19 12:44) Home Medications: Ambulatory Orders Medication Instructions Recorded Aspirin E.C. [Ecotrin] 81 mg PO DAILY@0800 01/24/15 metFORMIN HCl [Glucophage] 500 mg PO DAILY 01/24/15 Albuterol Sulfate [Ventolin Hfa] 2 puff IH Q6H PRN PRN 07/29/19 Ipratropium/Albuterol Sulfate 3 ml INHALATION TID 09/14/19 [Duoneb] carvedilol 3.125 mg tablet 3.125 mg PO BID #60 tab 09/15/19 furosemide 40 mg tablet 40 mg PO DAILY #60 tab 09/15/19 apixaban 2.5 mg tablet 2.5 mg PO BID #60 tab 09/19/19 Acetaminophen [Tylenol Arthritis] 650 mg PO Q6H PRN PRN 10/04/19 Guaifenesin [Mucinex] 600 mg PO BID 10/04/19 Surgical History: Surgical History (Last Reviewed 10/04/19 @ 16:06 by KARSON Hernandez) H/O coronary artery bypass surgery (Resolved) Onset Date: 2007 Z95.1 CABG x 5 GONCALVES-LAD, Sequential SVG-OM1, OM2,SVG-D1, SVG-RPDA 2007 History of coronary artery stent placement (Chronic) Onset Date: 01/25/15 Z95.5 PCI[employer]RY[employer]NE[employer]OR Prox LCx w/ 2.5 x 12 mm Integrity Stent 01/25/2015 Psychiatric History: No pertinent psych hx Lives: Spouse/ Significant Other Smoking Status: Current every day smoker Tobacco Use: Cigarettes Alcohol: None Drugs: None - *Family History Maternal Family History: Family History (Last Reviewed 10/04/19 @ 16:07 by KARSON Hernandez) Sister Cancer Brother Cancer Sister Cancer Sister Cancer Brother Heart disease Cancer Brother Cancer Father Heart disease Mother Diabetes History Items: Diabetes, Stroke Paternal Family History: Family History (Last Reviewed 10/04/19 @ 16:07 by KARSON Hernandez) Sister Cancer Brother Cancer Sister Cancer Sister Cancer Brother Heart disease Cancer Brother Cancer Father Heart disease Mother Diabetes History Items: - - His father young from shooting himself Review of Systems Constitutional: Reports: Fever, Malaise, Fatigue. Denies: Chills HEENT: Denies: Head Aches, Sinus Congestion, Sinus Drainage Cardiovascular: Denies: Chest Pain, Edema, Light Headedness, Palpitations, Syncope Respiratory: Reports: Cough, Shortness of Breath, Sputum production, Wheezing Gastrointestinal: Denies: Abdominal Pain, Nausea, Vomiting Genitourinary: Denies: Dysuria Musculoskeletal: Denies: Joint Pain, Joint Tenderness Skin: Denies: Rash, Wounds Neurological: Denies: Numbness, Tingling, Focal weakness Psychiatric: Denies: Anxiety, Depression, Homicidal Ideations, Suicidal Ideations Hematologic/ Lymphatic: Denies: Easy Bruising, Easy Bleeding VTE Information - Inpt Only VTE Present on Admission: No VTE Mechan Device Prophylaxis: None VTE Pharm Prophylaxis ordered?: Yes - Physical Exam Vitals/I&O's: Vital Signs Temp Pulse Resp BP Pulse Ox 97.9 F 89 22 H 90/57 L 100 10/04/19 12:41 10/04/19 15:30 10/04/19 15:30 10/04/19 15:30 10/04/19 15:30 Oxygen Flow Rate (L/min) 4 Oxygen Delivery Method Nasal Cannula Weight: 130 lb Body Mass Index (BMI) 19.8 Intake and Output for Last 24 Hours 10/02/19 10/03/19 10/04/19 23:59 23:59 23:59 Intake Total 33.33 / 33.33 Balance 33.33 / 33.33 General: Alert, Oriented x3, Cooperative HEENT: Atraumatic, PERRLA, EOMI, Normocephalic Oral: Dry Mucosa Neck: Supple, No JVD, Negative Carotid Bruits Lungs: Diminished, Rhonchi, Wheezes Cardiovascular: Regular rate, Regular Rhythm, Normal S1, Normal S2, No murmurs Abdomen: Bowel Sounds Present, Soft, Non Tender, Non-Distended Extremities: No clubbing, No cyanosis, No edema, Capillary Refill Less than 3 Seconds Skin: No rashes, No breakdown Musculoskeletal: No Tenderness to Palpation of Joints or Extremities, Cachexia, Muscle Wasting Neurological: Cranial nerves II-XII grossly intact, Neuro grossly intact Psych/Mental Status: Normal Affect, Appropriate Microbiology Past 72 Hours 10/04/19 13:40 Mucosa - Nose Influenza Types A,B Direct FA (JUAN MIGUEL) - Final Laboratory Results 10/04/19 13:40: WBC 12.3 H, RBC 3.70 L, Hgb 10.1 L, Hct 32.7 L, MCV 88.4, MCH 27.3, MCHC 30.9 L, RDW Std Deviation 49.1 H, RDW Coeff of Herbert 15.2 H, Plt Count 311, MPV 9.9, Immature Gran % (Auto) 0.500, Neut % (Auto) 83.8 H, Lymph % (Auto) 4.4 L, [place] % (Auto) 10.5 H, Eos % (Auto) 0.6, Baso % (Auto) 0.2, Absolute Neuts (auto) 10.3 H, Absolute Lymphs (auto) 0.54 L, Nucleated RBC % 0 10/04/19 13:40: Sodium 136, Potassium 3.8, Chloride 100, Carbon Dioxide 32.0, Anion Gap 4 L, BUN 26 H, Creatinine 0.85, Estim Creat Clear Calc 58.77, Est GFR (MDRD) Af Amer 112, Est GFR (MDRD) Non-Af 93, BUN/Creatinine Ratio 30.7 H, Glucose 133 H, Calcium 9.2, Troponin I < 0.015 10/04/19 13:40: Lactic Acid 1.1 Current Medications Vancomycin HCl (Vancomycin) 1,000 mg in 200 mls @ 200 mls/hr IV X1 ONE Stop: 10/04/19 16:29 Assessment/Plan All Active Problems (Last Reviewed 09/29/19 @ 14:08 by Keeley Bah) H/O coronary artery bypass surgery (Resolved 2007) Acute on chronic systolic (congestive) heart failure (Resolved) History of tobacco use (Resolved) Warfarin-induced coagulopathy (Resolved) 1. Increased shortness of breath with chronic hypoxic respiratory failure, suspect multifactorial due to HCAP, COPD exacerbation and progressive stage IV non-small cell lung cancer- CXR with right upper lobe consolidation. Follows with Dr. Cortez, consult pulmonary medicine. IV vanc and IV zosyn. IV Solu-Medrol. Albuterol and DuoNeb aerosols. Influenza negative. Continue supplement oxygen to maintain O2 sat above 90%. Send sputum for culture. 2. Sepsis secondary to HCAP-treatment per above. Blood cultures pending. 3. Hypotension- hold BP regimen. IV fluids. If unable to maintain BP with fluid resuscitation, may require additional intervention. 4. Non-small cell lung cancer stage IV with bilateral lung nodules and right hilar mass- Following with Dr. Reynolds however declining treatment. Discussed palliative care referral. 5. CAD with history of CABG/stents/ischemic cardiomyopathy-echo July 2019 EF 25%. Hold carvedilol due to hypotension. Continue aspirin. 6. Hypertension- hold BP regimen given hypotension. Resume when BP improved. 7. Hyperlipidemia- no longer on statin. 8. Left ventricular mural thrombus following WI- on anticoagulation with apixaban. 9. Type 2 diabetes mellitus- hold metformin. Accucheck ACHS with SSI. 10. Tobacco dependence- encouraged cessation. DVT prophylaxis- Eliquis. This patient was seen by KARSON Hernandez under the supervision of Dr. Mcintyre. <Monico Mcintyre - Last Filed: 10/04/19 16:45> History of Present Illness The patient is a 79 year old M presents with increasing shortness of breath. Had fever of 100.4. CXR showed a right sided pneumonia. Pulmonary was contacted through the emergency room and felt that may have been postobstructive and recommended vancomycin as well as Pipracil and/tazobactam. In the emergency room, patient had blood pressures that were low dipping down into the 60-70 systolic range. Patient and daughter note that the patient has chronically low blood pressure but never quite that low. Patient did receive IV fluids and his blood pressure went up into the 90s systolic. [] Past Medical History Medical History: Medical History (Last Reviewed 10/04/19 @ 16:37 by Monico Mcintyre DO) Type 2 diabetes mellitus (Chronic) E11.9 Atherosclerosis of coronary artery without angina pectoris (Chronic) I25.10 [employer] INS[employer]OR Prox LCx w/ 2.5 x 12 mm Resolute Integrity Stent 01/25/2015; CABG x 5 GONCALVES-LAD, Sequential SVG-OM1, OM2,SVG-D1, SVG-RPDA 2007 History of non-ST elevation myocardial infarction (NSTEMI) (Chronic) Onset Date: 2014 I25.2 Ischemic cardiomyopathy (Chronic) I25.5 LV (left ventricular) mural thrombus following WI (Chronic) I23.6 Chronic systolic (congestive) heart failure (Chronic) I50.22 Essential (primary) hypertension (Chronic) I10 Hyperlipidemia (Chronic) E78.5 COPD (chronic obstructive pulmonary disease) (Chronic) J44.9 Lung mass (Chronic) R91.8 Nicotine dependence (Chronic) F17.200 Acute on chronic systolic (congestive) heart failure (Resolved) I50.23 Allergies No Known Allergies Allergy (Verified 10/04/19 12:44) Surgical History: Surgical History (Last Reviewed 10/04/19 @ 16:37 by Monico Mcintyre DO) H/O coronary artery bypass surgery (Resolved) Onset Date: 2007 Z95.1 CABG x 5 GONCALVES-LAD, Sequential SVG-OM1, OM2,SVG-D1, SVG-RPDA 2007 History of coronary artery stent placement (Chronic) Onset Date: 01/25/15 Z95.5 PCI-RY[employer]NE[employer] INSPECTOR Prox LCx w/ 2.5 x 12 mm Integrity Stent 01/25/2015 Psychiatric History: No pertinent psych hx Lives: Spouse/ Significant Other Smoking Status: Current every day smoker Tobacco Use: Cigarettes Alcohol: None Drugs: None - *Family History Maternal Family History: Family History (Last Reviewed 10/04/19 @ 16:37 by Monico Mcintyre DO) Sister Cancer Brother Cancer Sister Cancer Sister Cancer Brother Heart disease Cancer Brother Cancer Father Heart disease Mother Diabetes Paternal Family History: Family History (Last Reviewed 10/04/19 @ 16:37 by Monico Mcintyre DO) Sister Cancer Brother Cancer Sister Cancer Sister Cancer Brother Heart disease Cancer Brother Cancer Father Heart disease Mother Diabetes Review of Systems Constitutional: Reports: Fever, Malaise, Fatigue. Denies: Chills HEENT: Denies: Head Aches, Sinus Congestion, Sinus Drainage Cardiovascular: Denies: Chest Pain, Edema, Light Headedness, Palpitations, Syncope Respiratory: Reports: Cough, Shortness of Breath, Sputum production, Wheezing Gastrointestinal: Denies: Abdominal Pain, Nausea, Vomiting Genitourinary: Denies: Dysuria Musculoskeletal: Denies: Joint Pain, Joint Tenderness Skin: Denies: Rash, Wounds Neurological: Denies: Focal weakness, Numbness, Tingling Psychiatric: Denies: Anxiety, Depression, Homicidal Ideations, Suicidal Ideations Hematologic/ Lymphatic: Denies: Easy Bruising, Easy Bleeding VTE Information - Inpt Only VTE Present on Admission: No VTE Pharm Prophylaxis ordered?: No Reason prophylaxis not ordered:: Procedure Not Indicated - Physical Exam Vitals/I&O's: Vital Signs Temp Pulse Resp BP Pulse Ox 36.6 C 89 22 H 90/57 L 100 10/04/19 12:41 10/04/19 15:30 10/04/19 15:30 10/04/19 15:30 10/04/19 15:30 Oxygen Flow Rate (L/min) 4 Oxygen Delivery Method Nasal Cannula Weight: 58.967 kg Body Mass Index (BMI) 19.8 Intake and Output for Last 24 Hours 10/02/19 10/03/19 10/04/19 23:59 23:59 23:59 Intake Total 1083.33 / 1083.33 Balance 1083.33 / 1083.33 General: Alert, Oriented x3, Cooperative HEENT: Atraumatic, Normocephalic Oral: Dry Mucosa Neck: No Nodes, Trachea Midline Lungs: Diminished, Rhonchi, Wheezes Cardiovascular: Regular rate, Regular Rhythm, Normal S1, Normal S2, No murmurs Abdomen: Bowel Sounds Present, Soft, Non Tender, Non-Distended Extremities: No edema, No Calf Tenderness Skin: No rashes, No breakdown Musculoskeletal: No Tenderness to Palpation of Joints or Extremities, No Muscle Wasting Lymphatic: No Cervical, Supraclavicular, or Inguinal Adenopathy, Cervical Adenopathy Neurological: Motor Exam 5/5 strength throughout, - - no clonus. Psych/Mental Status: Normal Affect, Agitated Microbiology Past 72 Hours 10/04/19 13:40 Mucosa - Nose Influenza Types A,B Direct FA (JUAN MIGUEL) - Final Laboratory Results 10/04/19 13:40: WBC 12.3 H, RBC 3.70 L, Hgb 10.1 L, Hct 32.7 L, MCV 88.4, MCH 27.3, MCHC 30.9 L, RDW Std Deviation 49.1 H, RDW Coeff of Herbert 15.2 H, Plt Count 311, MPV 9.9, Immature Gran % (Auto) 0.500, Neut % (Auto) 83.8 H, Lymph % (Auto) 4.4 L, [place] % (Auto) 10.5 H, Eos % (Auto) 0.6, Baso % (Auto) 0.2, Absolute Neuts (auto) 10.3 H, Absolute Lymphs (auto) 0.54 L, Nucleated RBC % 0 10/04/19 13:40: Sodium 136, Potassium 3.8, Chloride 100, Carbon Dioxide 32.0, Anion Gap 4 L, BUN 26 H, Creatinine 0.85, Estim Creat Clear Calc 58.77, Est GFR (MDRD) Af Amer 112, Est GFR (MDRD) Non-Af 93, BUN/Creatinine Ratio 30.7 H, Glucose 133 H, Calcium 9.2, Troponin I < 0.015 10/04/19 13:40: Lactic Acid 1.1 Current Medications Acetaminophen (Tylenol) 650 mg PO Q6H PRN PRN PRN Reason: Pain Score 1-3/Temp > 100.7 F Albuterol Sulfate (Ventolin Aerosols) 2.5 mg INHALATION Q2H PRN PRN PRN Reason: SOB/Wheezing Albuterol/Ipratropium (Duoneb) 3 ml INHALATION Q4H.RT STEVE Apixaban (Eliquis) 2.5 mg PO BID [facility] Aspirin (Ecotrin) 81 mg PO DAILY@0800 [facility] Dextrose (D50w Syringe) 0 gm IV X1 PRN; Protocol PRN Reason: Hypoglycemia Glucagon () 1 mg IM .X1 PRN PRN Reason: Hypoglycemia Guaifenesin (Mucinex) 1,200 mg PO BID STEVE Vancomycin IV Pharmacy to Dose (1 ea/ Sodium Chloride) 500 mls @ 250 mls/hr IV X1 PRN; Protocol PRN Reason: Rx to Dose Piperacillin Sod/Tazobactam (Sod 3.375 gm/ Sodium Chloride) 50 mls @ 12.5 mls/hr IV Q8 [facility] Stop: 10/11/19 22:01 Sodium Chloride () 500 mls @ 999 mls/hr IV .Q31M ONE Stop: 10/04/19 17:01 Last Admin: 10/04/19 16:32 Dose: 999 mls/hr Documented by: Insulin Human Lispro (Humalog Kwikpen (Bkc)) 0 unit SC ACHS [facility]; Protocol Methylprednisolone (Solu-Medrol) 40 mg IV Q8 [facility] Stop: 10/05/19 22:01 Ondansetron HCl (Zofran) 4 mg IV Q8H PRN PRN PRN Reason: NAUSEA/VOMITING Oxycodone HCl (Oxyir) 5 mg PO Q4H PRN PRN PRN Reason: Pain Score 4-5/10 Sodium Chloride () 10 - 40 ml IV UD PRN PRN Reason: SALINE FLUSH Assessment/Plan Patient seen and examined independently. Data reviewed. I agree with the above note by the nurse practitioner. 1. Suspected gram-negative pneumonia May be postobstructive per pulmonology Per pulmonology, no repeat imaging at this time. Plan would be to continue with antibiotics, steroids and bronchodilators. Additionally, patient will have chest physiotherapy. Antibiotics will be vancomycin and Pipracil and/tazobactam. Adjust antibiotics currently based on culture results and antigen results is a come back 2. Sepsis Present on admission Met 2 of 4 Sirs criteria with leukocytosis and tachypnea Blood pressure has been low but been bouncing from the 60s to the 90s. Therefore, I do not feel the patient is having septic shock. Did discuss with the patient and his daughter that he does have persistently low blood pressure then we would need to put him in the ICU and place a central line and initiate vasopressors. For the time being, patient can be admitted to the progressive care unit and treated accordingly. 3. Hypotension Improved Please see sepsis for further details 4. Non-small cell lung cancer Stage IV. Patient has declined treatment Follow-up with Dr. Reynolds 5. VTE proph: low risk as already anticoagulated on apixaban 6. ACP: DW patient and his dtr. DNRCCA. Code Visit Inpatient E&M: 60545 Init Hosp L3
[2019-10-04] MEDS: Vancomycin IV 1,000 MG/200 ML BAG 200 MG IV (16:17)
[2019-10-04 16:39] LABS: Mucous, Urine 0 SEEN /hpf (<or=2+); Red Blood Cells-Urine 0 SEEN /hpf (0-5); Squamous Epithelial Cells - UA 0 SEEN /hpf (0-5); White Blood Cells 0 SEEN /hpf (0-5)
[2019-10-04 16:53] LABS: Color, Urine Yellow (Yellow); Glucose, Dipstick Normal (Normal); Ketone-Dipstick Negative (Negative); Leukocyte Esterase-Dipstick Negative /ul (Negative); Nitrite-Dipstick Negative (Negative); Occult Blood-Urine Negative /ul (Negative); Protein-Dipstick Negative (Negative); Urine Bilirubin Dipstick Negative (Negative); Urine Clarity Clear (Clear); Urine Urobilinogen 1 mg/dl (Normal)
[2019-10-04 17:01] LABS: Calcium Oxalate Crystals Ur RARE /hpf (<or=2+); Hyaline Cast 0-5 SEEN /lpf (0-5)
[2019-10-04 17:02] LABS: Bacteria RARE /hpf (None Seen)
--- NOTE | 2019-10-04 17:23 | PCM.CONS.PUL ---
Problem List (1) Squamous cell carcinoma of lung Status: Chronic Qualifiers: Laterality: right (2) Type 2 diabetes mellitus Status: Chronic (3) Atherosclerosis of coronary artery without angina pectoris Status: Chronic Comment: PCI-RYANNE-CUSTOMER SUPPORT CONSULTANT Prox LCx w/ 2.5 x 12 mm Resolute Integrity Stent 01/25/2015; CABG x 5 GONCALVES-LAD, Sequential SVG-OM1, OM2,SVG-D1, SVG-RPDA 2007 (4) H/O coronary artery bypass surgery Status: Resolved Comment: CABG x 5 GONCALVES-LAD, Sequential SVG-OM1, OM2,SVG-D1, SVG-RPDA 2007 (5) History of coronary artery stent placement Status: Chronic Comment: PCI-RYANNE-CUSTOMER SUPPORT CONSULTANT Prox LCx w/ 2.5 x 12 mm Integrity Stent 01/25/2015 (6) Ischemic cardiomyopathy Status: Chronic (7) LV (left ventricular) mural thrombus following SC Status: Chronic (8) Chronic systolic (congestive) heart failure Status: Chronic (9) Hyperlipidemia Status: Chronic (10) COPD (chronic obstructive pulmonary disease) Status: Chronic Qualifiers: (11) Nicotine dependence Status: Chronic Qualifiers: Reason for Consult Date of Consultation: 10/04/19 Reason for Consultation: Pneumonia History of Present Illness: The patient is a 79 year old M, with past medical history listed below and well-known to me from the outpatient office, who presented to [facility] secondary to progressive shortness of breath, cough productive of yellow sputum and fatigue. Patient reportedly had had a temperature of 100.4 ?F at home with increasing shortness of breath and cough so was brought into the ER for evaluation. Patient is on 4 L nasal cannula at baseline and was recently diagnosed with squamous cell lung cancer with partial obstruction of the bronchus intermedius and significant obstruction of the right upper lobe. In the ER, patient was noted to be hypotensive at 79/51 and 95% on his baseline 4 L. A chest x-ray was obtained showing increased right upper lobe infiltrate. Patient also had a leukocytosis, but negative influenza. Patient did respond to fluid resuscitation. Patient was placed on HCAP antibiotics and admitted to the floor for further evaluation. Patient reports subjective improvement in his overall condition. Patient states his shortness of breath is improved following the fluid resuscitation. Patient states that he started to have a cough productive of bright yellow sputum this morning, but denies any hemoptysis. No chest pain has been reported. Patient did report significant improvement following the bronchodilators. Patient has been seen by oncology, but has not been initiated on chemotherapy or radiation at this time. Patient denies any sinus type symptoms. No sick contacts of been reported. Review of systems otherwise negative from a constitutional, HEENT, respiratory, cardiovascular, GI, genitourinary, musculoskeletal, skin, neurologic, psychiatric and hematologic system unless stated above. Past Medical History Past Medical History (Chronic Problems): Chronic Problems (Last Reviewed 10/04/19 @ 16:37 by Monico Mcintyre DO) Squamous cell carcinoma of lung (Chronic) Type 2 diabetes mellitus (Chronic) Atherosclerosis of coronary artery without angina pectoris (Chronic) PCI-RYANNE-C[employer]OMER SUPPORT CONSULTANT Prox LCx w/ 2.5 x 12 mm Resolute Integrity Stent 01/25/2015; CABG x 5 GONCALVES-LAD, Sequential SVG-OM1, OM2,SVG-D1, SVG-RPDA 2007 History of non-ST elevation myocardial infarction (NSTEMI) (Chronic 2014) History of coronary artery stent placement (Chronic 01/25/15) PCI-RYANNE-CUSTOMER SUPPORT CONSULTANT Prox LCx w/ 2.5 x 12 mm Integrity Stent 01/25/2015 Ischemic cardiomyopathy (Chronic) LV (left ventricular) mural thrombus following SC (Chronic) Chronic systolic (congestive) heart failure (Chronic) Essential (primary) hypertension (Chronic) Hyperlipidemia (Chronic) COPD (chronic obstructive pulmonary disease) (Chronic) Lung mass (Chronic) Nicotine dependence (Chronic) Medical History: Medical History (Last Reviewed 10/04/19 @ 16:37 by Monico Mcintyre DO) Type 2 diabetes mellitus (Chronic) E11.9 Atherosclerosis of coronary artery without angina pectoris (Chronic) I25.10 PCI-RYANNE-C[employer]OMER SUPPORT CONSULTANT Prox LCx w/ 2.5 x 12 mm Resolute Integrity Stent 01/25/2015; CABG x 5 GONCALVES-LAD, Sequential SVG-OM1, OM2,SVG-D1, SVG-RPDA 2007 History of non-ST elevation myocardial infarction (NSTEMI) (Chronic) Onset Date: 2014 I25.2 Ischemic cardiomyopathy (Chronic) I25.5 LV (left ventricular) mural thrombus following SC (Chronic) I23.6 Chronic systolic (congestive) heart failure (Chronic) I50.22 Essential (primary) hypertension (Chronic) I10 Hyperlipidemia (Chronic) E78.5 COPD (chronic obstructive pulmonary disease) (Chronic) J44.9 Lung mass (Chronic) R91.8 Nicotine dependence (Chronic) F17.200 Acute on chronic systolic (congestive) heart failure (Resolved) I50.23 Allergies No Known Allergies Allergy (Verified 10/04/19 12:44) Home Medications: Ambulatory Orders Medication Instructions Recorded Aspirin E.C. [Ecotrin] 81 mg PO DAILY@0800 01/24/15 metFORMIN HCl [Glucophage] 500 mg PO DAILY 01/24/15 Albuterol Sulfate [Ventolin Hfa] 2 puff IH Q6H PRN PRN 07/29/19 Ipratropium/Albuterol Sulfate 3 ml INHALATION TID 09/14/19 [Duoneb] carvedilol 3.125 mg tablet 3.125 mg PO BID #60 tab 09/15/19 furosemide 40 mg tablet 40 mg PO DAILY #60 tab 09/15/19 apixaban 2.5 mg tablet 2.5 mg PO BID #60 tab 09/19/19 Acetaminophen [Tylenol Arthritis] 650 mg PO Q6H PRN PRN 10/04/19 Guaifenesin [Mucinex] 600 mg PO BID 10/04/19 Surgical History: Surgical History (Last Reviewed 10/04/19 @ 16:37 by Monico Mcintyre DO) H/O coronary artery bypass surgery (Resolved) Onset Date: 2007 Z95.1 CABG x 5 GONCALVES-LAD, Sequential SVG-OM1, OM2,SVG-D1, SVG-RPDA 2007 History of coronary artery stent placement (Chronic) Onset Date: 01/25/15 Z95.5 PCI-RYANNE-CUSTOMER SUPPORT CONSULTANT Prox LCx w/ 2.5 x 12 mm Integrity Stent 01/25/2015 Psychiatric History: No pertinent psych hx Lives: Spouse/ Significant Other Smoking Status: Current every day smoker Tobacco Use: Cigarettes Alcohol: None Drugs: None - *Family History Maternal Family History: Family History (Last Reviewed 10/04/19 @ 16:37 by Monico Mcintyre DO) Sister Cancer Brother Cancer Sister Cancer Sister Cancer Brother Heart disease Cancer Brother Cancer Father Heart disease Mother Diabetes History Items: Diabetes, Stroke Paternal Family History: Family History (Last Reviewed 10/04/19 @ 16:37 by Monico Mcintyre DO) Sister Cancer Brother Cancer Sister Cancer Sister Cancer Brother Heart disease Cancer Brother Cancer Father Heart disease Mother Diabetes History Items: - - His father young from shooting himself Review of Systems Comment: See HPI Objective: Chest x-ray was personally reviewed and appears to have increasing infiltrates of the right upper and right middle lobe. Previous bronchoscopy was reviewed. Pulmonary function tests have not been completed. Previous echocardiograms have shown an EF of 25% with poor visualization of other structures. - Physical Exam Vitals/I&O's: Vital Signs Temp Pulse Resp BP Pulse Ox 36.6 C 89 22 H 90/57 L 100 10/04/19 12:41 10/04/19 15:30 10/04/19 15:30 10/04/19 15:30 10/04/19 15:30 Oxygen Flow Rate (L/min) 4 Oxygen Delivery Method Nasal Cannula Weight: 58.967 kg Body Mass Index (BMI) 19.8 Intake and Output for Last 24 Hours 10/02/19 10/03/19 10/04/19 23:59 23:59 23:59 Intake Total 1083.33 / 1083.33 Balance 1083.33 / 1083.33 General: Alert, Oriented x3, Cooperative, - - Mild conversational dyspnea. Thin build. HEENT: Atraumatic, PERRLA, EOMI, Normocephalic, - - No scleral icterus or injection noted Oral: No Gingival or Mucosal Lesions/ Ulcerations, Dry Mucosa, - - Dentures noted. Neck: Supple, No JVD, No Nodes, Trachea Midline Lungs: No wheeze, No rales, Diminished, Rhonchi - Right apex Cardiovascular: Regular rate, Regular Rhythm, Normal S1, Normal S2, No murmurs, No rub noted, No Gallop Abdomen: Bowel Sounds Present, Soft, Non Tender, Non-Distended Extremities: No clubbing, No cyanosis, No edema, Diminished Peripheral Pulses Skin: No rashes, No breakdown Musculoskeletal: No Tenderness to Palpation of Joints or Extremities, Cachexia Lymphatic: No Cervical, Supraclavicular, or Inguinal Adenopathy Neurological: Cranial nerves II-XII grossly intact, Neuro grossly intact, Motor Exam 5/5 strength throughout Psych/Mental Status: Alert and oriented to time, place, person, mood and affect Microbiology Past 72 Hours 10/04/19 13:40 Mucosa - Nose Influenza Types A,B Direct FA (JUAN MIGUEL) - Final Laboratory Results 10/04/19 13:40: WBC 12.3 H, RBC 3.70 L, Hgb 10.1 L, Hct 32.7 L, MCV 88.4, MCH 27.3, MCHC 30.9 L, RDW Std Deviation 49.1 H, RDW Coeff of Herbert 15.2 H, Plt Count 311, MPV 9.9, Immature Gran % (Auto) 0.500, Neut % (Auto) 83.8 H, Lymph % (Auto) 4.4 L, [place] % (Auto) 10.5 H, Eos % (Auto) 0.6, Baso % (Auto) 0.2, Absolute Neuts (auto) 10.3 H, Absolute Lymphs (auto) 0.54 L, Nucleated RBC % 0 10/04/19 13:40: Sodium 136, Potassium 3.8, Chloride 100, Carbon Dioxide 32.0, Anion Gap 4 L, BUN 26 H, Creatinine 0.85, Estim Creat Clear Calc 58.77, Est GFR (MDRD) Af Amer 112, Est GFR (MDRD) Non-Af 93, BUN/Creatinine Ratio 30.7 H, Glucose 133 H, Calcium 9.2, Troponin I < 0.015 10/04/19 13:40: Lactic Acid 1.1 10/04/19 16:30: Urine Color Yellow, Urine Clarity Clear, Urine pH 6.0, Ur Specific [place] 1.020, Urine Protein Negative, Urine Glucose (UA) Normal, Urine Ketones Negative, Urine Occult Blood Negative, Urine Nitrite Negative, Urine Bilirubin Negative, Urine Urobilinogen 1 H, Ur Leukocyte Esterase Negative, Urine RBC 0 SEEN, Urine WBC 0 SEEN, Ur Squamous Epith Cells 0 SEEN, Calcium Oxalate Crystal RARE, Urine Bacteria RARE, Hyaline Casts 0-5 SEEN, Urine Mucus 0 SEEN Current Medications Acetaminophen (Tylenol) 650 mg PO Q6H PRN PRN PRN Reason: Pain Score 1-3/Temp > 100.7 F Albuterol Sulfate (Ventolin Aerosols) 2.5 mg INHALATION Q2H PRN PRN PRN Reason: SOB/Wheezing Albuterol/Ipratropium (Duoneb) 3 ml INHALATION Q4H.RT STEVE Apixaban (Eliquis) 2.5 mg PO BID [facility] Aspirin (Ecotrin) 81 mg PO DAILY@0800 STEVE Glucagon () 1 mg IM .X1 PRN PRN Reason: Hypoglycemia Guaifenesin (Mucinex) 1,200 mg PO BID STEVE Vancomycin IV Pharmacy to Dose (1 ea/ Sodium Chloride) 500 mls @ 250 mls/hr IV X1 PRN; Protocol PRN Reason: Rx to Dose Piperacillin Sod/Tazobactam (Sod 3.375 gm/ Sodium Chloride) 50 mls @ 12.5 mls/hr IV Q8 [facility] Stop: 10/11/19 22:01 Dextrose (Dextrose 10%-Water) 250 mls @ 999 mls/hr IV .Q16M PRN; Protocol PRN Reason: HYPOGLYCEMIA Insulin Human Lispro (Humalog Kwikpen (Bkc)) 0 unit SC ACHS [facility]; Protocol Methylprednisolone (Solu-Medrol) 40 mg IV Q8 [facility] Stop: 10/05/19 22:01 Ondansetron HCl (Zofran) 4 mg IV Q8H PRN PRN PRN Reason: NAUSEA/VOMITING Oxycodone HCl (Oxyir) 5 mg PO Q4H PRN PRN PRN Reason: Pain Score 4-5/10 Sodium Chloride () 10 - 40 ml IV UD PRN PRN Reason: SALINE FLUSH Clinical Impression(s) from Imaging Studies Brain CT 10/04/19 13:25 IMPRESSION: Chronic involutional changes of the brain. Electronically Signed: Willian Wynn, at 15:14 EST , Service support , Chest X-Ray 10/04/19 13:25 IMPRESSION: Dense right upper lobe consolidation with elevation of the right hemidiaphragm. Possible right hilar mass. Stable increased markings at the lung bases suggestive scarring. Electronically Signed: Willian Wynn, at 13:43 EST , Service support , Assessment/Plan All Active Problems (Last Reviewed 10/04/19 @ 16:37 by Monico Mcintyre DO) H/O coronary artery bypass surgery (Resolved 2007) Acute on chronic systolic (congestive) heart failure (Resolved) History of tobacco use (Resolved) Warfarin-induced coagulopathy (Resolved) RECOMMENDATIONS: 1. BiPAP rescue if necessary 2. Continue antibiotics, steroids and mucolytic's 3. No need for CT scan of the chest 4. Wean oxygen as tolerated 5. Outpatient complete PFT 6. Obtain INR in the morning IMPRESSIONS: 1. Acute hypoxic respiratory failure Clinical suspicion for multifactorial etiology. Patient has not completed outpatient pulmonary function test, but clinical suggestion is for COPD exacerbation from a postobstructive pneumonia given change in sputum and increasing shortness of breath. Patient has received a bronchoscopy in the last month and has been in and out of the hospital frequently. Would recommend healthcare associated antibiotics initially. Culture should be sent. Patient has had pleural effusions in the past, but this appears to be relatively unremarkable on clinical exam. Steroids and bronchodilators are appropriately ordered. 2. Acute on chronic systolic congestive heart failure/ischemic cardiomyopathy/pleural effusion Patient did receive significant fluid resuscitation on presentation with some improvement. Patient is not reporting any bleeding complications associated with Coumadin therapy. 3. History of ventricular mural thrombus/diabetes mellitus type 2/coronary artery disease/advanced age Complicates care, management, recovery and prognosis. Patient is a confirmed DNR Comfort Care arrest. Continue with sliding scale insulin. Will need to watch blood sugars closely given steroid therapy. Code Visit Inpatient E&M: 20225 Init Hosp L3
--- NOTE | 2019-10-04 17:59 | PCM.RX.CS ---
Consult Pharmacy has been consulted to manage selected antiobiotic: Vancomycin Type of Consult: New start Suspected Infection: Sepsis, Pneumonia Prior Doses of Antibiotics Received/Current Regimen: 1000MG IV X1 IN E.R. at 1617 today Labs: Sodium 136 mmol/L (136-145) 10/04/19 13:40 Potassium 3.8 mmol/L (3.5-5.1) 10/04/19 13:40 Chloride 100 mmol/L (98-107) 10/04/19 13:40 Carbon Dioxide 32.0 mmol/L (21.0-32.0) 10/04/19 13:40 Anion Gap 4 (5-15) L 10/04/19 13:40 BUN 26 mg/dL (7-18) H 10/04/19 13:40 Creatinine 0.85 mg/dL (0.70-1.30) 10/04/19 13:40 Est GFR (MDRD) Af Amer 112 mL/min (>60) 10/04/19 13:40 Est GFR (MDRD) Non-Af 93 mL/min (>60) 10/04/19 13:40 BUN/Creatinine Ratio 30.7 RATIO (10-20) H 10/04/19 13:40 Glucose 133 mg/dL (74-106) H 10/04/19 13:40 Microbiology: Microbiology 10/04/19 13:40 Mucosa - Nose Influenza Types A,B Direct FA (JUAN MIGUEL) - Final Weight used for dosin.4 kg Estimated Creatinine Clearance: 58.8ml/min Goal Trough: 15-20 mcg/mL Pharmacy Plan for Drug Dosing: Continue with 500mg IV q12h to start 12 hours after the ER dose was given. Obtain a trough level before the 4th total dose. Pharmacy Service will continue to monitor and adjust dosing as required. Follow-Up Labs: Trough Vancomycin Labs to be done on [date and time ordered]: 10/06/19 03:30
[2019-10-04] MEDS: APIXABAN 2.5 MG TABLET PO (22:40)
[2019-10-04] MEDS: guaiFENesin 1,200 MG Tablet 1200 MG PO (22:40)
[2019-10-04] MEDS: 0.9% Saline Lock 10 ML Syringe IV (22:43)
[2019-10-04 23:01] LABS: Bedside Glucose 131 mg/dL (70-110)
[2019-10-05] VITALS (13 sets, daily range): BP systolic 94–114; BP diastolic 43–58; PULSE 81–95; RESP 16–20; TEMP 36.6–36.8; O2SAT 92–98
[2019-10-05] MEDS: Vancomycin IV 500 MG/100 ML BAG 100 MG IV ×2 (03:54→19:47)
[2019-10-05 06:07] LABS: Absolute Lymphocyte Count 0.33 X10^3/uL (0.83-4.51); Absolute Neutrophil Count 10.1 X10^3/uL (2.0-7.7); Basophil# 0.02 X10^3/uL; Basophil% 0.2 % (0-1); Eosinophil# 0.01 X10^3/uL; Eosinophils% 0.1 % (0-5); Hematocrit 30.2 % (40-54); Hemoglobin 9.2 g/dL (13.0-16.5); Lymphocyte # 0.33 X10^3/ul (4.0); Lymphocyte % 3.1 % (19-41); Mean Corp Hgb Conc 30.5 g/dL (32-36); Mean Corpuscular Hgb 27.4 pg (27.0-32.0); Mean Corpuscular Volume 89.9 fL (80-94); Mean Platelet Vol. 9.6 fl (6.2-12.0); Monocyte# 0.22 X10^3/uL; NRBC Flagged by Analyzer 0 % (0-5); Neutrophil # 10.11 X10^3/uL (2.7-7.7); Neutrophil % 93.9 % (47-70); POSITIVE DIFFERENTIAL YES; Platelet Count 326 K/mm3 (150-450); RBC Distribution Width CV 15.2 % (11.6-14.6); RBC Distribution Width SD 50.3 fl (35.1-43.9); Red Blood Count 3.36 M/mm3 (4.6-6.2); White Blood Count 10.8 K/mm3 (4.4-11.0)
[2019-10-05 06:24] LABS: Anion Gap 3 (5-15); BUN 21 mg/dL (7-18); BUN/Creat Ratio 28.3 RATIO (10-20); Calcium,Total 8.7 mg/dL (8.5-10.1); Chloride 105 mmol/L (98-107); Creatinine, Serum 0.74 mg/dL (0.70-1.30); EST Glomerular Filtration Rate 108 mL/min (>60); Est Glom Filt Rate - Afr Amer 131 mL/min (>60); Estimated Creatinine Clearance 51.17 ml/min; Glucose 172 mg/dL (74-106); Sodium Level 137 mmol/L (136-145)
[2019-10-05 06:46] LABS: Bedside Glucose 143 mg/dL (70-110)
[2019-10-05 07:10] LABS: Differential Indicated SCAN CRITERIA MET
[2019-10-05 07:14] LABS: Acanthocytes 2+; Differential Comment SCANNED; Ovalocyte 2+; Schistocytes RARE
[2019-10-05] MEDS: guaiFENesin 1,200 MG Tablet 1200 MG PO ×2 (08:59→21:20)
[2019-10-05] MEDS: APIXABAN 2.5 MG TABLET PO ×2 (08:59→21:20)
[2019-10-05] MEDS: Aspirin E.C. 81 MG Tablet PO (08:59)
--- NOTE | 2019-10-05 10:22 | CASEMGMT ---
Patient has a Healthcare POA and Healthcare LW on file in e-chart. SW printed copies and placed them in his paper chart. Edith KRAMER MSW
[2019-10-05] MEDS: Ipratropium/Albuterol Sulfate 3 ML AMPUL.NEB INHALATION ×3 (10:47→20:23)
--- NOTE | 2019-10-05 11:40 | CASEMGMT ---
Assessment- SW completed assessment with patient and his daughter, Kaia. Living situation- Patient lives with his in a 1 story home with 1 entry step. PCP: Dr Bhakta Specialists: Dr Reynolds-Oncology and Dr Cortez-Pulmonology Pharmacy: [facility] DME: walker, cane, raised toilet seat, shower chair, O2- 4L and nebulizer from [employer] ADL's/IADL's: Patient gets help managing his medications. He bathes himself. His helps with managing meals and machine puller over. He normally drives, but has not since he has been sick. Past SNF/rehab: None Past HH: Yes. [facility] HH LW: Yes and it is on file at [facility] POA: Yes and it is on file at [facility] Plan: SW spoke with patient and his daughter. At this point they are not sure of discharge needs. The physician did talk with them about Palliative Care and they are interested. RAÚL explained SW will make the referral. Patient's daughter said they should call her to set up a time. RAÚL explained RAÚL and RN CM will follow along for d/c needs. SW will make Palliative Care referral. Edith KRAMER PROFESSIONAL SHOPPER
--- NOTE | 2019-10-05 12:00 | CASEMGMT ---
RAÚL faxed referral and also called Palliative Care with referral. Edith KRAMER ELECTRONIC EQUIPMENT INSTALLER
[2019-10-05] MEDS: Insulin Lispro 100 UNIT/ML INSULN.PEN SC ×3 (13:01→21:19)
[2019-10-05 13:05] LABS: Bedside Glucose 244 mg/dL (70-110)
--- NOTE | 2019-10-05 14:10 | PCM.PROGNOTE ---
<Priyanka Lundberg - Last Filed: 10/05/19 14:15> Subjective: Patient reports improvement in breathing. Denies fever, chills. No acute events overnight. - Physical Exam Vitals/I&O's: Vital Signs Temp Pulse Resp BP Pulse Ox 98.0 F 83 18 113/58 L 94 10/05/19 09:06 10/05/19 11:12 10/05/19 11:12 10/05/19 09:06 10/05/19 09:06 Oxygen Flow Rate (L/min) 4 Oxygen Delivery Method Nasal Cannula Weight: 133 lb 2.547 oz Body Mass Index (BMI) 20.2 Intake and Output for Last 24 Hours 10/03/19 10/04/19 10/05/19 23:59 23:59 23:59 Intake Total 3190.00 / 3190.00 440 / 440 Output Total 375 / 375 200 / 200 Balance 2815.00 / 2815.00 240 / 240 General: Alert, Oriented x3, Cooperative HEENT: Atraumatic, PERRLA, EOMI, Normocephalic Neck: Supple, No JVD, Negative Carotid Bruits Lungs: Diminished, Rhonchi, Wheezes Cardiovascular: Regular rate, Regular Rhythm, Normal S1, Normal S2, No murmurs Abdomen: Bowel Sounds Present, Soft, Non Tender, Non-Distended Extremities: No clubbing, No cyanosis, No edema Skin: No rashes, No breakdown Musculoskeletal: No Tenderness to Palpation of Joints or Extremities Neurological: Cranial nerves II-XII grossly intact, Neuro grossly intact Psych/Mental Status: Normal Affect, Appropriate Microbiology Past 72 Hours 10/04/19 23:15 Urine, Clean Catch Legionella Antigen - Final 10/04/19 23:15 Urine, Clean Catch Streptococcus pneumoniae Antigen (M - Final 10/04/19 13:40 Mucosa - Nose Influenza Types A,B Direct FA (JUAN MIGUEL) - Final Laboratory Results 10/04/19 13:40: Sodium 136, Potassium 3.8, Chloride 100, Carbon Dioxide 32.0, Anion Gap 4 L, BUN 26 H, Creatinine 0.85, Estim Creat Clear Calc 58.77, Est GFR (MDRD) Af Amer 112, Est GFR (MDRD) Non-Af 93, BUN/Creatinine Ratio 30.7 H, Glucose 133 H, Calcium 9.2, Troponin I < 0.015 10/04/19 13:40: Lactic Acid 1.1 10/04/19 16:30: Urine Color Yellow, Urine Clarity Clear, Urine pH 6.0, Ur Specific [place] 1.020, Urine Protein Negative, Urine Glucose (UA) Normal, Urine Ketones Negative, Urine Occult Blood Negative, Urine Nitrite Negative, Urine Bilirubin Negative, Urine Urobilinogen 1 H, Ur Leukocyte Esterase Negative, Urine RBC 0 SEEN, Urine WBC 0 SEEN, Ur Squamous Epith Cells 0 SEEN, Calcium Oxalate Crystal RARE, Urine Bacteria RARE, Hyaline Casts 0-5 SEEN, Urine Mucus 0 SEEN 10/04/19 22:38: POC Glucose 131 H 10/05/19 05:20: WBC 10.8, RBC 3.36 L, Hgb 9.2 L, Hct 30.2 L, MCV 89.9, MCH 27.4, MCHC 30.5 L, RDW Std Deviation 50.3 H, RDW Coeff of Herbert 15.2 H, Plt Count 326, MPV 9.6, Immature Gran % (Auto) 0.700, Neut % (Auto) 93.9 H, Lymph % (Auto) 3.1 L, [place] % (Auto) 2.0, Eos % (Auto) 0.1, Baso % (Auto) 0.2, Absolute Neuts (auto) 10.1 H, Absolute Lymphs (auto) 0.33 L, Nucleated RBC % 0, Differential Comment SCANNED, Ovalocytes 2+, Acanthocytes (Spur) 2+, Schistocytes RARE 10/05/19 05:20: Sodium 137, Potassium 4.0, Chloride 105, Carbon Dioxide 29.0, Anion Gap 3 L, BUN 21 H, Creatinine 0.74, Estim Creat Clear Calc 51.17, Est GFR (MDRD) Af Amer 131, Est GFR (MDRD) Non-Af 108, BUN/Creatinine Ratio 28.3 H, Glucose 172 H, Calcium 8.7 10/05/19 06:41: POC Glucose 143 H 10/05/19 12:52: POC Glucose 244 H Current Medications Acetaminophen (Tylenol) 650 mg PO Q6H PRN PRN PRN Reason: Pain Score 1-3/Temp > 100.7 F Albuterol Sulfate (Ventolin Aerosols) 2.5 mg INHALATION Q2H PRN PRN PRN Reason: SOB/Wheezing Albuterol/Ipratropium (Duoneb) 3 ml INHALATION Q4H.RT [facility] Last Admin: 10/05/19 10:47 Dose: 3 ml Documented by: Apixaban (Eliquis) 2.5 mg PO BID [facility] Last Admin: 10/05/19 08:59 Dose: 2.5 mg Documented by: Aspirin (Ecotrin) 81 mg PO DAILY@0800 [facility] Last Admin: 10/05/19 08:59 Dose: 81 mg Documented by: Glucagon () 1 mg IM .X1 PRN PRN Reason: Hypoglycemia Guaifenesin (Mucinex) 1,200 mg PO BID [facility] Last Admin: 10/05/19 08:59 Dose: 1,200 mg Documented by: Vancomycin IV Pharmacy to Dose (1 ea/ Sodium Chloride) 500 mls @ 250 mls/hr IV X1 PRN; Protocol PRN Reason: Rx to Dose Piperacillin Sod/Tazobactam (Sod 3.375 gm/ Sodium Chloride) 50 mls @ 12.5 mls/hr IV Q8 [facility] Stop: 10/11/19 22:01 Last Infusion: 10/05/19 10:10 Dose: Infused Documented by: Dextrose (Dextrose 10%-Water) 250 mls @ 999 mls/hr IV .Q16M PRN; Protocol PRN Reason: HYPOGLYCEMIA Vancomycin HCl () 500 mg in 100 mls @ 100 mls/hr IV Q12H [facility] Last Infusion: 10/05/19 04:54 Dose: Infused Documented by: Insulin Human Lispro (Humalog Kwikpen (Bkc)) 0 unit SC ACHS [facility]; Protocol Last Admin: 10/05/19 13:01 Dose: 2 u Documented by: Methylprednisolone (Solu-Medrol) 40 mg IV Q8 [facility] Stop: 10/05/19 22:01 Last Admin: 10/05/19 05:33 Dose: 40 mg Documented by: Nutritional Formula (Lactose Free) (Glucerna Shake) 120 ml PO 4X/DAY [facility] Ondansetron HCl (Zofran) 4 mg IV Q8H PRN PRN PRN Reason: NAUSEA/VOMITING Oxycodone HCl (Oxyir) 5 mg PO Q4H PRN PRN PRN Reason: Pain Score 4-5/10 Sodium Chloride () 10 - 40 ml IV UD PRN PRN Reason: SALINE FLUSH Last Admin: 10/04/19 22:43 Dose: 10 ml Documented by: Medical Necessity - Tobacco Use Smoking Status: Current every day smoker Tobacco Use: Cigarettes Assessment/Plan All Active Problems (Last Reviewed 10/04/19 @ 16:37 by Monico Mcintyre DO) H/O coronary artery bypass surgery (Resolved 2007) Acute on chronic systolic (congestive) heart failure (Resolved) History of tobacco use (Resolved) Warfarin-induced coagulopathy (Resolved) 1. Increased shortness of breath with chronic hypoxic respiratory failure, suspect multifactorial due to HCAP/possible postobstructive pneumonia, COPD exacerbation and progressive stage IV non-small cell lung cancer- CXR with right upper lobe consolidation. Follows with Dr. Cortez, pulmonary medicine consulted. IV vanc and IV zosyn. IV Solu-Medrol. Albuterol and DuoNeb aerosols. Influenza negative. Continue supplement oxygen to maintain O2 sat above 90%. Sputum and blood cultures pending. 2. Sepsis secondary to HCAP-treatment per above. Blood cultures pending. 3. Hypotension- hold BP regimen. Blood pressure currently improved. 4. Non-small cell lung cancer stage IV with bilateral lung nodules and right hilar mass- Following with Dr. Reynolds however declining treatment. Agreeable to palliative care referral. 5. CAD with history of CABG/stents/ischemic cardiomyopathy-echo July 2019 EF 25%. Hold carvedilol due to hypotension. Continue aspirin. 6. Hypertension- hold BP regimen given hypotension. Resume when BP improved. 7. Hyperlipidemia- no longer on statin. 8. Left ventricular mural thrombus following MS- on anticoagulation with apixaban. 9. Type 2 diabetes mellitus- hold metformin. Accucheck ACHS with SSI. 10. Tobacco dependence- encouraged cessation. DVT prophylaxis- Eliquis. This patient was seen by KARSON Hernandez under the supervision of Dr. Stephen. <Fermín Stephen F - Last Filed: 10/05/19 15:21> - Physical Exam Vitals/I&O's: Vital Signs Temp Pulse Resp BP Pulse Ox 98.2 F 95 16 114/43 L 96 10/05/19 15:00 10/05/19 15:00 10/05/19 15:00 10/05/19 15:00 10/05/19 15:00 Oxygen Flow Rate (L/min) 4 Oxygen Delivery Method Nasal Cannula Weight: 133 lb 2.547 oz Body Mass Index (BMI) 20.2 Intake and Output for Last 24 Hours 10/03/19 10/04/19 10/05/19 23:59 23:59 23:59 Intake Total 3190.00 / 3190.00 440 / 440 Output Total 375 / 375 200 / 200 Balance 2815.00 / 2815.00 240 / 240 Microbiology Past 72 Hours 10/04/19 23:15 Urine, Clean Catch Legionella Antigen - Final 10/04/19 23:15 Urine, Clean Catch Streptococcus pneumoniae Antigen (M - Final 10/04/19 13:40 Mucosa - Nose Influenza Types A,B Direct FA (JUAN MIGUEL) - Final Laboratory Results 10/04/19 16:30: Urine Color Yellow, Urine Clarity Clear, Urine pH 6.0, Ur Specific [place] 1.020, Urine Protein Negative, Urine Glucose (UA) Normal, Urine Ketones Negative, Urine Occult Blood Negative, Urine Nitrite Negative, Urine Bilirubin Negative, Urine Urobilinogen 1 H, Ur Leukocyte Esterase Negative, Urine RBC 0 SEEN, Urine WBC 0 SEEN, Ur Squamous Epith Cells 0 SEEN, Calcium Oxalate Crystal RARE, Urine Bacteria RARE, Hyaline Casts 0-5 SEEN, Urine Mucus 0 SEEN 10/04/19 22:38: POC Glucose 131 H 10/05/19 05:20: WBC 10.8, RBC 3.36 L, Hgb 9.2 L, Hct 30.2 L, MCV 89.9, MCH 27.4, MCHC 30.5 L, RDW Std Deviation 50.3 H, RDW Coeff of Herbert 15.2 H, Plt Count 326, MPV 9.6, Immature Gran % (Auto) 0.700, Neut % (Auto) 93.9 H, Lymph % (Auto) 3.1 L, [place] % (Auto) 2.0, Eos % (Auto) 0.1, Baso % (Auto) 0.2, Absolute Neuts (auto) 10.1 H, Absolute Lymphs (auto) 0.33 L, Nucleated RBC % 0, Differential Comment SCANNED, Ovalocytes 2+, Acanthocytes (Spur) 2+, Schistocytes RARE 10/05/19 05:20: Sodium 137, Potassium 4.0, Chloride 105, Carbon Dioxide 29.0, Anion Gap 3 L, BUN 21 H, Creatinine 0.74, Estim Creat Clear Calc 51.17, Est GFR (MDRD) Af Amer 131, Est GFR (MDRD) Non-Af 108, BUN/Creatinine Ratio 28.3 H, Glucose 172 H, Calcium 8.7 10/05/19 06:41: POC Glucose 143 H 10/05/19 12:52: POC Glucose 244 H Current Medications Acetaminophen (Tylenol) 650 mg PO Q6H PRN PRN PRN Reason: Pain Score 1-3/Temp > 100.7 F Albuterol Sulfate (Ventolin Aerosols) 2.5 mg INHALATION Q2H PRN PRN PRN Reason: SOB/Wheezing Albuterol/Ipratropium (Duoneb) 3 ml INHALATION Q4H.RT [facility] Last Admin: 10/05/19 14:50 Dose: 3 ml Documented by: Apixaban (Eliquis) 2.5 mg PO BID [facility] Last Admin: 10/05/19 08:59 Dose: 2.5 mg Documented by: Aspirin (Ecotrin) 81 mg PO DAILY@0800 [facility] Last Admin: 10/05/19 08:59 Dose: 81 mg Documented by: Glucagon () 1 mg IM .X1 PRN PRN Reason: Hypoglycemia Guaifenesin (Mucinex) 1,200 mg PO BID [facility] Last Admin: 10/05/19 08:59 Dose: 1,200 mg Documented by: Vancomycin IV Pharmacy to Dose (1 ea/ Sodium Chloride) 500 mls @ 250 mls/hr IV X1 PRN; Protocol PRN Reason: Rx to Dose Piperacillin Sod/Tazobactam (Sod 3.375 gm/ Sodium Chloride) 50 mls @ 12.5 mls/hr IV Q8 [facility] Stop: 10/11/19 22:01 Last Admin: 10/05/19 14:59 Dose: 12.5 mls/hr Documented by: Dextrose (Dextrose 10%-Water) 250 mls @ 999 mls/hr IV .Q16M PRN; Protocol PRN Reason: HYPOGLYCEMIA Vancomycin HCl () 500 mg in 100 mls @ 100 mls/hr IV Q12H [facility] Last Infusion: 10/05/19 04:54 Dose: Infused Documented by: Insulin Human Lispro (Humalog Kwikpen (Bkc)) 0 unit SC ACHS [facility]; Protocol Last Admin: 10/05/19 13:01 Dose: 2 u Documented by: Methylprednisolone (Solu-Medrol) 40 mg IV Q8 [facility] Stop: 10/05/19 22:01 Last Admin: 10/05/19 14:59 Dose: 40 mg Documented by: Nutritional Formula (Lactose Free) (Glucerna Shake) 120 ml PO 4X/DAY [facility] Last Admin: 10/05/19 14:57 Dose: Not Given Documented by: Ondansetron HCl (Zofran) 4 mg IV Q8H PRN PRN PRN Reason: NAUSEA/VOMITING Oxycodone HCl (Oxyir) 5 mg PO Q4H PRN PRN PRN Reason: Pain Score 4-5/10 Sodium Chloride () 10 - 40 ml IV UD PRN PRN Reason: SALINE FLUSH Last Admin: 10/04/19 22:43 Dose: 10 ml Documented by: Code Visit Addendum: Dr. Stephen I personally examined the patient and reviewed the chart. I agree with the above. 79-year-old male who was recently diagnosed with non-small cell lung cancer presents with shortness of breath and a left-sided headache. He is on a baseline of 4 L nasal cannula and has not needed to go up on that, however he did have a fever on admission and he was started on broad-spectrum antibiotics to treat his pneumonia. We will consult palliative care to evaluate the patient prior to discharge home since he does not want to seek any treatment for his cancer. Appreciate recommendations and input by pulmonology. Inpatient E&M: [id number] [facility] Hosp L2
--- NOTE | 2019-10-05 14:35 | PCM.PN.PUL ---
Subjective: Patient feels subjectively improved compared to previous. Patient states his productive cough is improving in volume and frequency. Patient continues to be on his baseline 4 L nasal cannula. No hemoptysis is reported. Did discuss with patient's daughter at the bedside - Physical Exam Vitals/I&O's: Vital Signs Temp Pulse Resp BP Pulse Ox 36.7 C 83 18 113/58 L 94 10/05/19 09:06 10/05/19 11:12 10/05/19 11:12 10/05/19 09:06 10/05/19 09:06 Oxygen Flow Rate (L/min) 4 Oxygen Delivery Method Nasal Cannula Weight: 60.4 kg Body Mass Index (BMI) 20.2 Intake and Output for Last 24 Hours 10/03/19 10/04/19 10/05/19 23:59 23:59 23:59 Intake Total 3190.00 / 3190.00 440 / 440 Output Total 375 / 375 200 / 200 Balance 2815.00 / 2815.00 240 / 240 General: Alert, Oriented x3, Cooperative, - - Mild conversational dyspnea. Thin build. HEENT: Atraumatic, PERRLA, EOMI, Normocephalic, - - No scleral icterus or injection noted Oral: Moist Mucosa, No Gingival or Mucosal Lesions/ Ulcerations Neck: Supple, No JVD, No Nodes, Trachea Midline Lungs: No rales, Diminished, Rhonchi - Right greater than left, Wheezes - Sporadic Cardiovascular: Normal S1, Normal S2, No murmurs, Irregular Rate, No rub noted, No Gallop Abdomen: Bowel Sounds Present, Soft, Non Tender, Non-Distended Extremities: No cyanosis, Clubbing, Edema - Trace lower extremity Skin: No rashes, No breakdown Musculoskeletal: No Tenderness to Palpation of Joints or Extremities Lymphatic: No Cervical, Supraclavicular, or Inguinal Adenopathy Neurological: Cranial nerves II-XII grossly intact, Neuro grossly intact, Motor Exam 5/5 strength throughout Psych/Mental Status: Anxious, Flat Affect Microbiology Past 72 Hours 10/04/19 23:15 Urine, Clean Catch Legionella Antigen - Final 10/04/19 23:15 Urine, Clean Catch Streptococcus pneumoniae Antigen (M - Final 10/04/19 13:40 Mucosa - Nose Influenza Types A,B Direct FA (JUAN MIGUEL) - Final Laboratory Results 10/04/19 16:30: Urine Color Yellow, Urine Clarity Clear, Urine pH 6.0, Ur Specific [place] 1.020, Urine Protein Negative, Urine Glucose (UA) Normal, Urine Ketones Negative, Urine Occult Blood Negative, Urine Nitrite Negative, Urine Bilirubin Negative, Urine Urobilinogen 1 H, Ur Leukocyte Esterase Negative, Urine RBC 0 SEEN, Urine WBC 0 SEEN, Ur Squamous Epith Cells 0 SEEN, Calcium Oxalate Crystal RARE, Urine Bacteria RARE, Hyaline Casts 0-5 SEEN, Urine Mucus 0 SEEN 10/04/19 22:38: POC Glucose 131 H 10/05/19 05:20: WBC 10.8, RBC 3.36 L, Hgb 9.2 L, Hct 30.2 L, MCV 89.9, MCH 27.4, MCHC 30.5 L, RDW Std Deviation 50.3 H, RDW Coeff of Herbert 15.2 H, Plt Count 326, MPV 9.6, Immature Gran % (Auto) 0.700, Neut % (Auto) 93.9 H, Lymph % (Auto) 3.1 L, [place] % (Auto) 2.0, Eos % (Auto) 0.1, Baso % (Auto) 0.2, Absolute Neuts (auto) 10.1 H, Absolute Lymphs (auto) 0.33 L, Nucleated RBC % 0, Differential Comment SCANNED, Ovalocytes 2+, Acanthocytes (Spur) 2+, Schistocytes RARE 10/05/19 05:20: Sodium 137, Potassium 4.0, Chloride 105, Carbon Dioxide 29.0, Anion Gap 3 L, BUN 21 H, Creatinine 0.74, Estim Creat Clear Calc 51.17, Est GFR (MDRD) Af Amer 131, Est GFR (MDRD) Non-Af 108, BUN/Creatinine Ratio 28.3 H, Glucose 172 H, Calcium 8.7 10/05/19 06:41: POC Glucose 143 H 10/05/19 12:52: POC Glucose 244 H Clinical Impression(s) from Imaging Studies Brain CT 10/04/19 13:25 IMPRESSION: Chronic involutional changes of the brain. Electronically Signed: Willian Wynn, at 15:14 EST , Service support , Current Medications Acetaminophen (Tylenol) 650 mg PO Q6H PRN PRN PRN Reason: Pain Score 1-3/Temp > 100.7 F Albuterol Sulfate (Ventolin Aerosols) 2.5 mg INHALATION Q2H PRN PRN PRN Reason: SOB/Wheezing Albuterol/Ipratropium (Duoneb) 3 ml INHALATION Q4H.RT [facility] Last Admin: 10/05/19 10:47 Dose: 3 ml Documented by: Apixaban (Eliquis) 2.5 mg PO BID [facility] Last Admin: 10/05/19 08:59 Dose: 2.5 mg Documented by: Aspirin (Ecotrin) 81 mg PO DAILY@0800 [facility] Last Admin: 10/05/19 08:59 Dose: 81 mg Documented by: Glucagon () 1 mg IM .X1 PRN PRN Reason: Hypoglycemia Guaifenesin (Mucinex) 1,200 mg PO BID [facility] Last Admin: 10/05/19 08:59 Dose: 1,200 mg Documented by: Vancomycin IV Pharmacy to Dose (1 ea/ Sodium Chloride) 500 mls @ 250 mls/hr IV X1 PRN; Protocol PRN Reason: Rx to Dose Piperacillin Sod/Tazobactam (Sod 3.375 gm/ Sodium Chloride) 50 mls @ 12.5 mls/hr IV Q8 [facility] Stop: 10/11/19 22:01 Last Infusion: 10/05/19 10:10 Dose: Infused Documented by: Dextrose (Dextrose 10%-Water) 250 mls @ 999 mls/hr IV .Q16M PRN; Protocol PRN Reason: HYPOGLYCEMIA Vancomycin HCl () 500 mg in 100 mls @ 100 mls/hr IV Q12H [facility] Last Infusion: 10/05/19 04:54 Dose: Infused Documented by: Insulin Human Lispro (Humalog Kwikpen (Bkc)) 0 unit SC ACHS [facility]; Protocol Last Admin: 10/05/19 13:01 Dose: 2 u Documented by: Methylprednisolone (Solu-Medrol) 40 mg IV Q8 [facility] Stop: 10/05/19 22:01 Last Admin: 10/05/19 05:33 Dose: 40 mg Documented by: Nutritional Formula (Lactose Free) (Glucerna Shake) 120 ml PO 4X/DAY [facility] Ondansetron HCl (Zofran) 4 mg IV Q8H PRN PRN PRN Reason: NAUSEA/VOMITING Oxycodone HCl (Oxyir) 5 mg PO Q4H PRN PRN PRN Reason: Pain Score 4-5/10 Sodium Chloride () 10 - 40 ml IV UD PRN PRN Reason: SALINE FLUSH Last Admin: 10/04/19 22:43 Dose: 10 ml Documented by: Medical Necessity - Tobacco Use Smoking Status: Current every day smoker Tobacco Use: Cigarettes Assessment/Plan All Active Problems (Last Reviewed 10/04/19 @ 16:37 by Monico Mcintyre DO) H/O coronary artery bypass surgery (Resolved 2007) Acute on chronic systolic (congestive) heart failure (Resolved) History of tobacco use (Resolved) Warfarin-induced coagulopathy (Resolved) RECOMMENDATIONS: 1. Consider gentle diuresis 2. Continue antibiotics, steroids and mucolytic's 3. Wean oxygen as tolerated 4. Outpatient complete PFT 5. Obtain daily INR given antibiotics IMPRESSIONS: 1. Acute hypoxic respiratory failure Clinical suspicion for multifactorial etiology. Patient has not completed outpatient pulmonary function test, but clinical suggestion is for COPD exacerbation from a postobstructive pneumonia given change in sputum and increasing shortness of breath. Patient has received a bronchoscopy in the last month and has been in and out of the hospital frequently. Would recommend healthcare associated antibiotics initially. Continue to await culture data. Patient appears to be improving clinically on current therapy. Patient would benefit from gentle diuresis. Once cultures have been resulted, antibiotics can be narrowed in spectrum to complete a 5-day course 2. Acute on chronic systolic congestive heart failure/ischemic cardiomyopathy/pleural effusion Patient did receive significant fluid resuscitation on presentation with some improvement. Patient is not reporting any bleeding complications associated with Coumadin therapy. 3. History of ventricular mural thrombus/diabetes mellitus type 2/coronary artery disease/advanced age Complicates care, management, recovery and prognosis. Patient is a confirmed DNR Comfort Care arrest. Continue with sliding scale insulin. Will need to watch blood sugars closely given steroid therapy. Code Visit Inpatient E&M: 15935 Subs Hosp L2
[2019-10-05] MEDS: Glucerna Shake 120 ML LIQUID PO (16:45)
[2019-10-05 16:56] LABS: Bedside Glucose 281 mg/dL (70-110)
--- NOTE | 2019-10-05 16:57 | CHAPLAIN ---
Type of Pastoral Visit _x__ Initial Visit ___ Follow-up Visit ___ On-call Visit ___ General Patient Visit ___ Spiritual Assessment ___ Family Conference ___ Bereavement ___ Rapid Response ___ Code Blue ___ Other (describe below) Pastoral Care Referral From _x__ Patient ___ Family ___ Nurse ___ Physician ___ Lens Cementer ___ Pallet Stone Inserter ___ Other (describe below) Sacrament/Intervention _x__ Active listening ___ Anointing ___ Holiness ___ Bereavement ___ Communion ___ Lori exploration ___ _x__ Life review _x__ Prayer ___ Reconciliation ___ Sacrament of Sick _x__ Supportive presence ___ Wedding ___ Other (describe below) Pastoral Comments
[2019-10-05 22:05] LABS: Bedside Glucose 309 mg/dL (70-110)
[2019-10-06 02:15] VITALS: BP 99/58; PULSE 81; RESP 20; TEMP 36.6; O2SAT 97
[2019-10-06 02:58] VITALS: PULSE 74
[2019-10-06 03:33] LABS: Hematocrit 29.8 % (40-54); Hemoglobin 9.2 g/dL (13.0-16.5); Mean Corp Hgb Conc 30.9 g/dL (32-36); Mean Corpuscular Hgb 27.6 pg (27.0-32.0); Mean Corpuscular Volume 89.5 fL (80-94); Mean Platelet Vol. 9.4 fl (6.2-12.0); Platelet Count 387 K/mm3 (150-450); RBC Distribution Width CV 15.1 % (11.6-14.6); RBC Distribution Width SD 49.4 fl (35.1-43.9); Red Blood Count 3.33 M/mm3 (4.6-6.2); White Blood Count 17.4 K/mm3 (4.4-11.0)
[2019-10-06] MEDS: Vancomycin IV 500 MG/100 ML BAG 100 MG IV (03:59)
[2019-10-06 05:02] LABS: Vancomycin, Trough Level 8.8 ug/mL (5.0-15.0)
[2019-10-06] MEDS: Insulin Lispro 100 UNIT/ML INSULN.PEN SC ×2 (06:38→11:44)
[2019-10-06 06:55] LABS: Bedside Glucose 169 mg/dL (70-110)
[2019-10-06 06:58] VITALS: PULSE 73
[2019-10-06 07:24] VITALS: PULSE 82; RESP 16; O2SAT 97
[2019-10-06] MEDS: Ipratropium/Albuterol Sulfate 3 ML AMPUL.NEB INHALATION (07:24)
[2019-10-06 08:27] VITALS: BP 111/64; PULSE 71; RESP 20; TEMP 36.6; O2SAT 95
[2019-10-06] MEDS: APIXABAN 2.5 MG TABLET PO (08:36)
[2019-10-06] MEDS: Glucerna Shake 120 ML LIQUID PO (08:36)
[2019-10-06] MEDS: Aspirin E.C. 81 MG Tablet PO (08:36)
[2019-10-06] MEDS: guaiFENesin 1,200 MG Tablet 1200 MG PO (08:36)
--- NOTE | 2019-10-06 10:40 | PN_ITS ---
Subjective: Patient continues to improve. Patient does report significant improvement in exercise tolerance and states that he was able to walk a lap around the unit yesterday. Patient has remained on his baseline 4 L nasal cannula. Patient is not reporting any chest pain and feels his productive cough is improving. - Physical Exam Vitals/I&O's: Vital Signs Temp Pulse Resp BP Pulse Ox 36.6 C 71 20 H 111/64 95 10/06/19 08:27 10/06/19 08:27 10/06/19 08:27 10/06/19 08:27 10/06/19 08:27 Oxygen Flow Rate (L/min) 4 Oxygen Delivery Method Nasal Cannula Weight: 60.4 kg Body Mass Index (BMI) 20.2 Intake and Output for Last 24 Hours 10/04/19 10/05/19 10/06/19 23:59 23:59 23:59 Intake Total 3190.00 / 3190.00 830 / 830 200 / 200 Output Total 375 / 375 400 / 400 450 / 450 Balance 2815.00 / 2815.00 430 / 430 -250 / -250 General: Alert, Oriented x3, Cooperative, No apparent distress, - - Minimal conversational dyspnea. HEENT: Atraumatic, PERRLA, EOMI, Normocephalic, - - Slight scleral injection without icterus Oral: Moist Mucosa, No Gingival or Mucosal Lesions/ Ulcerations Neck: Supple, No JVD, No Nodes, Trachea Midline Lungs: No rhonchi, No wheeze, No rales, Diminished, - - Symmetric expansion. Cardiovascular: Normal S1, Normal S2, No murmurs, Irregular Rate, No rub noted, No Gallop Abdomen: Bowel Sounds Present, Soft, Non Tender, Non-Distended Extremities: No cyanosis, Capillary Refill Less than 3 Seconds, Clubbing, Edema Skin: No rashes, No breakdown Musculoskeletal: No Tenderness to Palpation of Joints or Extremities Lymphatic: No Cervical, Supraclavicular, or Inguinal Adenopathy Neurological: Cranial nerves II-XII grossly intact, Neuro grossly intact, Motor Exam 5/5 strength throughout Psych/Mental Status: Normal Affect, Appropriate Microbiology Past 72 Hours 10/04/19 20:15 Sputum, Expectorated/Coughed Gram Stain - Final 10/04/19 20:15 Sputum, Expectorated/Coughed Respiratory Culture - Preliminary Appears to be normal respiratory arlene. Further studies to follow. 10/04/19 23:15 Urine, Clean Catch Legionella Antigen - Final 10/04/19 23:15 Urine, Clean Catch Streptococcus pneumoniae Antigen (M - Final 10/04/19 13:40 Mucosa - Nose Influenza Types A,B Direct FA (JUAN MIGUEL) - Final Laboratory Results 10/05/19 12:52: POC Glucose 244 H 10/05/19 16:40: POC Glucose 281 H 10/05/19 21:13: POC Glucose 309 H 10/06/19 03:22: Vancomycin Trough 8.8 10/06/19 03:22: WBC 17.4 H, RBC 3.33 L, Hgb 9.2 L, Hct 29.8 L, MCV 89.5, MCH 27.6, MCHC 30.9 L, RDW Std Deviation 49.4 H, RDW Coeff of Herbert 15.1 H, Plt Count 387, MPV 9.4 10/06/19 06:37: POC Glucose 169 H Current Medications Acetaminophen (Tylenol) 650 mg PO Q6H PRN PRN PRN Reason: Pain Score 1-3/Temp > 100.7 F Albuterol Sulfate (Ventolin Aerosols) 2.5 mg INHALATION Q2H PRN PRN PRN Reason: SOB/Wheezing Albuterol/Ipratropium (Duoneb) 3 ml INHALATION Q4H.RT [facility] Last Admin: 10/06/19 07:24 Dose: 3 ml Documented by: Apixaban (Eliquis) 2.5 mg PO BID [facility] Last Admin: 10/06/19 08:36 Dose: 2.5 mg Documented by: Aspirin (Ecotrin) 81 mg PO DAILY@0800 [facility] Last Admin: 10/06/19 08:36 Dose: 81 mg Documented by: Glucagon () 1 mg IM .X1 PRN PRN Reason: Hypoglycemia Guaifenesin (Mucinex) 1,200 mg PO BID [facility] Last Admin: 10/06/19 08:36 Dose: 1,200 mg Documented by: Vancomycin IV Pharmacy to Dose (1 ea/ Sodium Chloride) 500 mls @ 250 mls/hr IV X1 PRN; Protocol PRN Reason: Rx to Dose Piperacillin Sod/Tazobactam (Sod 3.375 gm/ Sodium Chloride) 50 mls @ 12.5 mls/hr IV Q8 [facility] Stop: 10/11/19 22:01 Last Infusion: 10/06/19 09:50 Dose: Infused Documented by: Dextrose (Dextrose 10%-Water) 250 mls @ 999 mls/hr IV .Q16M PRN; Protocol PRN Reason: HYPOGLYCEMIA Vancomycin HCl 750 mg/ Sodium (Chloride) 265 mls @ 250 mls/hr IV Q12H [facility]EVE Insulin Human Lispro (Humalog Kwikpen (Bkc)) 0 unit SC ACHS [facility]; Protocol Last Admin: 10/06/19 06:38 Dose: 1 u Documented by: Nutritional Formula (Lactose Free) (Glucerna Shake) 120 ml PO 4X/DAY STEVE Last Admin: 10/06/19 08:36 Dose: 120 ml Documented by: Ondansetron HCl (Zofran) 4 mg IV Q8H PRN PRN PRN Reason: NAUSEA/VOMITING Oxycodone HCl (Oxyir) 5 mg PO Q4H PRN PRN PRN Reason: Pain Score 4-5/10 Sodium Chloride () 10 - 40 ml IV UD PRN PRN Reason: SALINE FLUSH Last Admin: 10/04/19 22:43 Dose: 10 ml Documented by: Medical Necessity - Tobacco Use Smoking Status: Current every day smoker Tobacco Use: Cigarettes Assessment/Plan All Active Problems (Last Reviewed 10/04/19 @ 16:37 by Monico Mcintyre DO) H/O coronary artery bypass surgery (Resolved 2007) Acute on chronic systolic (congestive) heart failure (Resolved) History of tobacco use (Resolved) Warfarin-induced coagulopathy (Resolved) RECOMMENDATIONS: 1. Consider gentle diuresis 2. Okay to transition to Levaquin and prednisone. Wean over the next 12 to 14 days. 3. Wean oxygen as tolerated 4. Outpatient complete PFT 5. Obtain daily INR given antibiotics 6. Outpatient follow-up with oncology to establish plan for new diagnosis of squamous cell lung cancer IMPRESSIONS: 1. Acute on chronic hypoxic respiratory failure/new diagnosis squamous cell lung cancer Clinical suspicion for multifactorial etiology. Patient has not completed outpatient pulmonary function test, but clinical suggestion is for COPD exacerbation from a postobstructive pneumonia given change in sputum and increasing shortness of breath. Patient has received a bronchoscopy in the last month and has been in and out of the hospital frequently. Patient treated with healthcare associated antibiotics initially. Patient appears to be improving clinically on current therapy. Patient would benefit from gentle diuresis. She is only growing normal arlene. Likely okay to transition to Levaquin and complete a 5-day course. Patient can be transition to prednisone and weaned over the next 12 to 14 days. 2. Acute on chronic systolic congestive heart failure/ischemic cardiomyopathy/pleural effusion Patient did receive significant fluid resuscitation on presentation with some improvement. Patient is not reporting any bleeding complications associated with Coumadin therapy. 3. History of ventricular mural thrombus/diabetes mellitus type 2/coronary artery disease/advanced age Complicates care, management, recovery and prognosis. Patient is a confirmed DNR Comfort Care arrest. Continue with sliding scale insulin. Will need to watch blood sugars closely given steroid therapy. Code Visit Inpatient E&M: 19846 Subs Hosp L2
--- NOTE | 2019-10-06 11:24 | DCINST_ITS ---
You will use the following diet at home:: No restrictions Your food should be the consistency of: Regular Your liquids should be the consistency of: Regular/Thin Discharge Activity: Return to Normal Activity Allergies/Adverse Reactions: Allergies No Known Allergies Allergy (Verified 10/04/19 12:44) Medications to take at Discharge Aspirin E.C. [Ecotrin] 81 mg PO DAILY@0800 01/24/15 metFORMIN HCl [Glucophage] 500 mg PO DAILY 01/24/15 Albuterol Sulfate [Ventolin Hfa] 2 puff IH Q6H PRN PRN 07/29/19 Ipratropium/Albuterol Sulfate [Duoneb] 3 ml INHALATION TID 09/14/19 carvedilol 3.125 mg tablet 3.125 mg PO BID #60 tab 09/15/19 furosemide 40 mg tablet 40 mg PO DAILY #60 tab 09/15/19 apixaban 2.5 mg tablet 2.5 mg PO BID #60 tab 09/19/19 Acetaminophen [Tylenol Arthritis] 650 mg PO Q6H PRN PRN 10/04/19 Guaifenesin [Mucinex] 600 mg PO BID 10/04/19 Prednisone 10 mg PO UD #30 tab 10/06/19 levoFLOXacin tablet [Levaquin tablet] 750 mg PO Q48H #3 tab 10/06/19 The following prescriptions were given: levoFLOXacin tablet [Levaquin tablet] 750 mg PO Q48H #3 tab Transmission Status: Pending to [facility] #30 Prednisone 10 mg PO UD #30 tab Transmission Status: Pending to [facility] #30 Primary Care Physician: Melvin Bhakta MD [Primary Care Provider] - Please follow up with your Primary Care Physician in: 1-2 weeks Test Results: Test results from this visit will be discussed in further detail at your follow- up appointment, if applicable. Please Follow Up With: Hospice When: as directed Proposed Discharge Date: 10/06/19
[2019-10-06 11:55] LABS: Bedside Glucose 219 mg/dL (70-110)
--- NOTE | 2019-10-06 12:02 | NURSING ---
Verbal report called to EMMA Kothari at [facility] hospice
--- NOTE | 2019-10-06 12:07 | CASEMGMT ---
Elsa from Hospice spoke with patient and his daughter. They signed papers for Hospice. Patient will be discharged home today on Hospice. SW to notify Hospice when patient is leaving hospital. Edith KRAMER MSW
[2019-10-06 12:19] VITALS: BP 110/70; PULSE 70; RESP 20; O2SAT 95
--- NOTE | 2019-10-06 13:33 | PCM.DC.SUM ---
<Kendall Bowling - Last Filed: 10/06/19 13:33> Discharge Date and Diagnosis Date of Admission: 10/04/19 Date of Discharge: 10/06/19 - Primary Discharge Diagnosis Acute sepsis 2/2 RUL CAP NSCLC, untreated CAD, prior CABG, stents, ischemic CM HTN HLD Left LV thrombus T2DM Tobacco abuse - Secondary Discharge Diagnosis Chronic Problems (Last Reviewed 10/04/19 @ 16:37 by Monico Mcintyre DO) Squamous cell carcinoma of lung (Chronic) Type 2 diabetes mellitus (Chronic) Atherosclerosis of coronary artery without angina pectoris (Chronic) PCI-RYANNE-[employer]FER [employer]IVER Prox LCx w/ 2.5 x 12 mm Resolute Integrity Stent 01/25/2015; CABG x 5 GONCALVES-LAD, Sequential SVG-OM1, OM2,SVG-D1, SVG-RPDA 2007 History of non-ST elevation myocardial infarction (NSTEMI) (Chronic 2014) History of coronary artery stent placement (Chronic 01/25/15) PCI-RYANNE-REEFER [employer]IVER Prox LCx w/ 2.5 x 12 mm Integrity Stent 01/25/2015 Ischemic cardiomyopathy (Chronic) 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 RAD/Chest 1 View (Portable) IMPRESSION: Dense right upper lobe consolidation with elevation of the right hemidiaphragm. Possible right hilar mass. Stable increased markings at the lung bases suggestive scarring. Consultations: Arthro-pulmonology Operations: None Procedures: None Summary of Care Provided: Hospital course: The patient is a 79 year old M with past medical history as above most notable for non-small cell lung cancer, who is declined treatment in the past, history of smoking, who presented to the ER with complaints of shortness of breath and left-sided headache, shortness of breath worsening over the past month, associated with productive cough, fever of up to 100.4 at home. He chronically uses 4 L/min of oxygen and was able to maintain adequate saturations at that amount. He had recently had a bronchoscopy that demonstrated right upper lobe airway abnormalities with some obstruction, fungating mass in the bronchus intermedius. Patient was insisted that he did not want treatment for his lung cancer-squamous cell, and had seen Dr. Gay the past for this. Patient was found to have right upper lobe infiltrates, leukocytosis, tachycardia, tachypnea, or blood pressure at 79/51. CT of the brain was negative. This resolved with IV fluids and holding his blood pressure medications. He was started on Banken Zosyn admitted to the PCU for sepsis secondary to pneumonia. Pulmonology was consulted. Patient had complete resolution of his shortness of breath. He remained well controlled with his oxygen at his home levels of 4 L/min. As he continued to decline care of his underlying cancer, palliative care/hospice was consulted. Patient made a decision to return home with hospice. He was transitioned to oral Levaquin for 5 days as well as a prednisone taper as per recommendation by pulmonology. He was discharged home with home hospice in stable condition. He should follow-up with his PCP in 1 to 2 weeks, follow-up with hospice as directed. This patient was seen by Kendall Bowling PA-C under the supervision of Doctor Stephen. [] - Physical Exam Vitals/I&O's: Vital Signs Temp Pulse Resp BP Pulse Ox 97.9 F 70 20 H 110/70 95 10/06/19 08:27 10/06/19 12:19 10/06/19 12:19 10/06/19 12:19 10/06/19 12:19 Oxygen Flow Rate (L/min) 4 Oxygen Delivery Method Nasal Cannula Weight: 133 lb 2.547 oz Body Mass Index (BMI) 20.2 Intake and Output for Last 24 Hours 10/04/19 10/05/19 10/06/19 23:59 23:59 23:59 Intake Total 3190.00 / 3190.00 830 / 830 200 / 200 Output Total 375 / 375 400 / 400 450 / 450 Balance 2815.00 / 2815.00 430 / 430 -250 / -250 General: Alert, Oriented x3, Cooperative HEENT: Atraumatic, PERRLA, EOMI, Normocephalic Neck: Supple, No JVD, Negative Carotid Bruits Lungs: Clear to auscultation, Normal air movement Cardiovascular: Regular rate, No murmurs Abdomen: Bowel Sounds Present, Soft, Non Tender Extremities: No edema, Capillary Refill Less than 3 Seconds Skin: No rashes, No breakdown Musculoskeletal: No Tenderness to Palpation of Joints or Extremities Neurological: Cranial nerves II-XII grossly intact Psych/Mental Status: Normal Affect, Appropriate, Alert and oriented to time, place, person, mood and affect Microbiology Past 72 Hours 10/04/19 20:15 Sputum, Expectorated/Coughed Gram Stain - Final 10/04/19 20:15 Sputum, Expectorated/Coughed Respiratory Culture - Preliminary Appears to be normal respiratory arlene. Further studies to follow. 10/04/19 23:15 Urine, Clean Catch Legionella Antigen - Final 10/04/19 23:15 Urine, Clean Catch Streptococcus pneumoniae Antigen (M - Final 10/04/19 13:40 Mucosa - Nose Influenza Types A,B Direct FA (JAUN MIGUEL) - Final Laboratory Results 10/05/19 16:40: POC Glucose 281 H 10/05/19 21:13: POC Glucose 309 H 10/06/19 03:22: Vancomycin Trough 8.8 10/06/19 03:22: WBC 17.4 H, RBC 3.33 L, Hgb 9.2 L, Hct 29.8 L, MCV 89.5, MCH 27.6, MCHC 30.9 L, RDW Std Deviation 49.4 H, RDW Coeff of Herbert 15.1 H, Plt Count 387, MPV 9.4 10/06/19 06:37: POC Glucose 169 H 10/06/19 11:43: POC Glucose 219 H Discharge Diet: No Restrictions Discharge Activity: Return to Normal Activity Home Medications: Medications to take at Discharge Aspirin E.C. [Ecotrin] 81 mg PO DAILY@0800 01/24/15 metFORMIN HCl [Glucophage] 500 mg PO DAILY 01/24/15 Albuterol Sulfate [Ventolin Hfa] 2 puff IH Q6H PRN PRN 07/29/19 Ipratropium/Albuterol Sulfate [Duoneb] 3 ml INHALATION TID 09/14/19 carvedilol 3.125 mg tablet 3.125 mg PO BID #60 tab 09/15/19 furosemide 40 mg tablet 40 mg PO DAILY #60 tab 09/15/19 apixaban 2.5 mg tablet 2.5 mg PO BID #60 tab 09/19/19 Acetaminophen [Tylenol Arthritis] 650 mg PO Q6H PRN PRN 10/04/19 Guaifenesin [Mucinex] 600 mg PO BID 10/04/19 Prednisone 10 mg PO UD #30 tab 10/06/19 levoFLOXacin tablet [Levaquin tablet] 750 mg PO DAILY #5 tab 10/06/19 Following Prescrptions Were Given to Patient: levoFLOXacin tablet [Levaquin tablet] 750 mg PO DAILY #5 tab Transmission Status: Received by [facility] #30 Prednisone 10 mg PO UD #30 tab Transmission Status: Received by [facility] #30 Primary Care Physician: Melvin Bhakta MD [Primary Care Provider] - Please follow up with your Primary Care Physician in: 1-2 weeks Please Follow Up With: Hospice When: as directed Disposition: Home with Hospice Minutes spent on discharge:: 35 Patient Condition:: Stable Medical Necessity - Tobacco Use Smoking Status: Current every day smoker Tobacco Use: Cigarettes Meaningful Use Info Meaningful Use Diagnoses (Choose all that apply): None applicable <Fermín Stephen - Last Filed: 10/06/19 14:36> Discharge Date and Diagnosis - Secondary Discharge Diagnosis Chronic Problems (Last Reviewed 10/04/19 @ 16:37 by Monico Mcintyre DO) Squamous cell carcinoma of lung (Chronic) Type 2 diabetes mellitus (Chronic) Atherosclerosis of coronary artery without angina pectoris (Chronic) PCI-RYANNE-[employer]FER [employer]IVER Prox LCx w/ 2.5 x 12 mm Resolute Integrity Stent 01/25/2015; CABG x 5 GONCALVES-LAD, Sequential SVG-OM1, OM2,SVG-D1, SVG-RPDA 2007 History of non-ST elevation myocardial infarction (NSTEMI) (Chronic 2014) History of coronary artery stent placement (Chronic 01/25/15) PCI-RYANNE-REEFER TRUCK DRIVER Prox LCx w/ 2.5 x 12 mm Integrity Stent 01/25/2015 Ischemic cardiomyopathy (Chronic) 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) Chronic systolic (congestive) heart failure (Chronic) Essential (primary) hypertension (Chronic) Hyperlipidemia (Chronic) COPD (chronic obstructive pulmonary disease) (Chronic) Lung mass (Chronic) Nicotine dependence (Chronic) Hospital Course and Treatment Summary of Care Provided: The patient is a 79 year old M [] - Physical Exam Vitals/I&O's: Vital Signs Temp Pulse Resp BP Pulse Ox 97.9 F 70 20 H 110/70 95 10/06/19 08:27 10/06/19 12:19 10/06/19 12:19 10/06/19 12:19 10/06/19 12:19 Oxygen Flow Rate (L/min) 4 Oxygen Delivery Method Nasal Cannula Weight: 133 lb 2.547 oz Body Mass Index (BMI) 20.2 Intake and Output for Last 24 Hours 10/04/19 10/05/19 10/06/19 23:59 23:59 23:59 Intake Total 3190.00 / 3190.00 830 / 830 200 / 200 Output Total 375 / 375 400 / 400 450 / 450 Balance 2815.00 / 2815.00 430 / 430 -250 / -250 Microbiology Past 72 Hours 10/04/19 13:40 Blood Culture (Wb) - Right Forearm Blood Culture - Preliminary No growth in 48 hours. 10/04/19 13:40 Blood Culture (Wb) - Left Forearm Blood Culture - Preliminary No growth in 48 hours. 10/04/19 20:15 Sputum, Expectorated/Coughed Gram Stain - Final 10/04/19 20:15 Sputum, Expectorated/Coughed Respiratory Culture - Preliminary Appears to be normal respiratory arlene. Further studies to follow. 10/04/19 23:15 Urine, Clean Catch Legionella Antigen - Final 10/04/19 23:15 Urine, Clean Catch Streptococcus pneumoniae Antigen (M - Final 10/04/19 13:40 Mucosa - Nose Influenza Types A,B Direct FA (JUAN MIGUEL) - Final Laboratory Results 10/05/19 16:40: POC Glucose 281 H 10/05/19 21:13: POC Glucose 309 H 10/06/19 03:22: Vancomycin Trough 8.8 10/06/19 03:22: WBC 17.4 H, RBC 3.33 L, Hgb 9.2 L, Hct 29.8 L, MCV 89.5, MCH 27.6, MCHC 30.9 L, RDW Std Deviation 49.4 H, RDW Coeff of Herbert 15.1 H, Plt Count 387, MPV 9.4 10/06/19 06:37: POC Glucose 169 H 10/06/19 11:43: POC Glucose 219 H Code Visit Addendum: Dr. Stephen I personally examined the patient and reviewed the chart. I agree with the above. 79-year-old male who was recently diagnosed with non-small cell lung cancer and is declining treatment for it, presents with shortness of breath and was found to have pneumonia. He was started on broad-spectrum antibiotics and admitted ultimately narrowed to Levaquin and prednisone by pulmonology. He is still on his baseline 4 L nasal cannula however given his decline in treatment for his cancer the family had a discussion with palliative care today and they ultimately decided to take him home on hospice. He can continue his Levaquin and prednisone as long as it remains as an oral option and he will be discharged home on hospice. Inpatient E&M: 91376 Disch Hosp
== END 2019-10-06 12:48 | disposition hospice, home (50) | DRG 871 ==
LOC: ED 13:18 → PCU 16:54
PROVIDERS: Nurse Practitioner Family; Emergency Provider Emergency Medicine; Family Provider Family Medicine; PCP Family Medicine; Visit Provider Family Medicine
DX: A41.9 Sepsis, unspecified organism (principal); J18.9 Pneumonia, unspecified organism; J96.21 Acute and chronic respiratory failure with hypoxia; I50.23 Acute on chronic systolic (congestive) heart failure; C34.90 Malignant neoplasm of unspecified part of unspecified bronchus or lung; J44.0 Chronic obstructive pulmonary disease with (acute) lower respiratory infection; Z99.81 Dependence on supplemental oxygen; I25.10 Atherosclerotic heart disease of native coronary artery without angina pectoris; I25.5 Ischemic cardiomyopathy; E11.9 Type 2 diabetes mellitus without complications; E78.5 Hyperlipidemia, unspecified; Z51.5 Encounter for palliative care; Z66 Do not resuscitate; Z95.5 Presence of coronary angioplasty implant and graft; Z95.1 Presence of aortocoronary bypass graft; I25.2 Old myocardial infarction; I51.3 Intracardiac thrombosis, not elsewhere classified; I11.0 Hypertensive heart disease with heart failure; F17.210 Nicotine dependence, cigarettes, uncomplicated; Z79.84 Long term (current) use of oral hypoglycemic drugs
CPT/HCPCS: 36415; 70450; 71045; 80048; 80202; 81001; 82962; 83605; 84484; 85025; 85027; 87040; 87070; 87205; 87449; 87804; 93005; 94640; 94667; 94668; 97163; 97165; 97802; 99285; J7030; J7040; J7050; A4216